=== PATIENT | female | born 1945 | race Caucasian/White ===

== ENCOUNTER 2016-05-09 07:31 | Outpatient (RCR) | payer OTHER ==
[~2016-05-09 07:31] MED LIST: /INSULEV SC; /MOM400 PO; /MUPINAS; /WARF5TA PO; ACET-654 PO; ACET500C PO; ACTO30TA PO; ACTO30TA6 PO; ALDA25TA2 PO; AMLO2.5T OR; AMLO5TAB2 PO; ASPI325T PO; ASPI81TA45; ASPI81TA83 OR; CALC1TAB21 PO; CALC25TA PO; CALCCHW12; CALCCHW12 OR; CEFT1INJ65 IV; COLA100C PO; COLA50CA3 PO; COMBAER6 INH; COMBVENT; COMBVENT INH; CORE25TA PO; Clindamycin PO; DOC-Q-LACE PO; DOCU100C PO; DORZ2SOL OU; DORZ2SOL17 OU; ELIQ2.5T PO; EYE DROP OU; FAMC250T3 PO; FURO40TA2 OR; FURO40TA2 PO; HCTZ/LISINOPRIL PO; HYOS125TA PO; IBAN150T5 PO; INSUDET SC; INSULANT; KETOROLAC 0.4% OD; KLOR10TA OR; LASI40TA; LASI40TA PO; LEVO250T24 PO; LEVO500T PO; LISI-542 PO; LISI10TA4; LISI10TA4 PO; LISI2.5T PO; LOPR100T; LOPR100T OR; MAPA325T2 PO; METO100T PO; METO50TA2 PO; NICO7DIS4; NOVOLOG INSULIN SC; NYST10PW TOP; OMEP20TA7 PO; OMEP40CA2 PO; ONDA4TAB6 PO; PERC5TAB PO; PERCOCET PO; PRED10TA PO; PRED1SUS OD; PRED50TA PO; PREDOPD OD; PRIL20CA; PROL0.072 OU; RANI150C PO; RANI150T PO; SIMV10TA2; SIMV10TA2 OR; SIMV20TA2 PO; SPIR25TA2 PO; TOBR3OPD OD; TRAV04OPD OS; TRAV04OPD OU; TRAVATAN; TRAVATAN OU; TYLE325T5 PO; TYLE500T78 PO; TYLENOL; TYLENOL EXTRA STR OR; ULTR50TA PO; VICO5TAB PO; VITA100066 PO; VITA2000 PO; VITAMIN D PO; VITAMIN D50000 UNT; VITAMIN D50000 UNT OR; XARE20TA PO; ZITH500T PO; ZYLO300T PO; [UNRECOGNIZED DRUG - CODE] PO; [UNRECOGNIZED DRUG - CODE] TOP; [UNRECOGNIZED DRUG - OTHER] PO; alphagan OD
== END 2016-05-10 ==
LOC: M PT 07:31
PROVIDERS: ATTEND Surgery
DX: Z51.89 Encounter for other specified aftercare (principal); I89.0 Lymphedema, not elsewhere classified

== ENCOUNTER 2016-05-16 12:59 | Inpatient (IN) | payer MEDICARE, OTHER ==
[~2016-05-16] VITALS: Ht 160 cm; Wt 133.0 kg
[~2016-05-16 12:59] MED LIST changes: -COLA100C PO; +COLA100C3 PO
[2016-05-16] MEDS ORDERED: IPRATROPIUM 0.5MG/ALBUTEROL 2.5MG INH SOL UD 3ML (DUONEB)(J7620) As Ordered ONE (14:10)
[2016-05-16 14:26] LABS: ABG BASE EXCESS 0.3 (-2.0-2.0); ABG DEVICE NASAL CANN; ABG HCO3 30.9 MEQ/L (22.0-26.0); ABG PARTIAL PRESSURE O2 137.9 mmHg (75.0-100.0); ABG STANDARD HCO3 24.8 MEQ/L (22.0-26.0); ABG TOTAL CO2 33.6 MEQ/L (23.0-31.0)
[2016-05-16 14:29] LABS: BASO % 0.2 % (0.0-1.0); EOS # 0.1 K/mm3 (0.0-0.50); EOS % 0.9 % (0.0-3.0); LARGE UNSTAINED CELL # 0.1 K/mm3 (0.0-0.4); LARGE UNSTAINED CELL % 1.3 % (0.0-4.0); LYMPH # 1.8 K/mm3 (1.5-4.5); LYMPH % 22.2 % (24.0-44.0); MEAN CORPUSCULAR HEMOGLOBIN 33.1 pg (27.0-33.0); MEAN CORPUSCULAR HGB CONC 30.2 g/dl (32.0-36.5); MEAN CORPUSCULAR VOLUME 109.6 fl (80.0-96.0); MONO # 0.4 K/mm3 (0.0-0.8); MONO % 4.6 % (0.0-5.0); NEUTROPHILS # 5.8 K/mm3 (1.8-7.7); NEUTROPHILS % 70.9 % (36.0-66.0); PLATELET COUNT, AUTOMATED 212 k/mm3 (150-450); RED CELL DISTRIBUTION WIDTH 15.7 % (11.5-14.5); WHITE BLOOD COUNT 8.2 K/mm3 (4.0-10.0)
[2016-05-16 14:33] LABS: ABG PARTIAL PRESSURE CO2 86.2 mmHg (35.0-45.0); ABG pH (ARTERIAL) 7.173 UNITS (7.350-7.450)
[2016-05-16 14:34] LABS: ANION GAP 5 MEQ/L (8-16); BLOOD UREA NITROGEN 23 MG/DL (7-18); CALCIUM LEVEL 8.7 MG/DL (8.8-10.2); CARBON DIOXIDE LEVEL 33 MEQ/L (21-32); CHLORIDE LEVEL 110 MEQ/L (98-107); CREATININE FOR GFR 0.97 MG/DL (0.55-1.02); GLOMERULAR FILTRATION RATE > 60.0 (>39); GLUCOSE, FASTING 180 MG/DL (83-110); POTASSIUM SERUM 4.4 MEQ/L (3.5-5.1); SODIUM LEVEL 148 MEQ/L (136-145)
[2016-05-16 14:44] LABS: ADD MORPHOLOGY? YES
[2016-05-16] MEDS ORDERED: ISOVUE-370 76% 100ML VIAL (Q9967) As Ordered ONE (14:47)
[2016-05-16 14:57] LABS: POLYCHROMASIA 1+
[2016-05-16 14:58] LABS: ANISOCYTOSIS 2+
--- NOTE | 2016-05-16 15:06 | REP ---
AP PORTABLE CHEST: 05/16/2016. Comparison: 11/03/2015, 06/30/2015, 04/30/2015 Clinical history: Dyspnea. Findings. Cardiomegaly with left atrial and ventricular enlargement. There is vascular redistribution with alveolar and interstitial pulmonary edema. Effusions are suspected bilaterally. There is basilar atelectasis and/or infiltrate, left greater than right. Calcified tortuous aortic arch without change. Airway midline. Bones with degenerative changes in the shoulders and spine. Impression: 1. Cardiomegaly with vascular redistribution, interstitial and alveolar edema and bilateral effusions suspected, left greater than right. Signed by Get Buckner MD 05/16/2016 04:28 P
[2016-05-16] MEDS ORDERED: FUROSEMIDE 40 MG/4 ML VIAL (J1940) As Ordered ONE (15:21)
--- NOTE | 2016-05-16 15:28 | REP ---
Duplex extremity venous ultrasound: Bilateral lower extremity. History: Question DVT. Findings: Exam quality was inhibited by patient body habitus and soft tissue edema as well as bandages. As a result the right distal femoral vein could not be seen. The deep veins are otherwise anechoic and fully compressible from the groin to the popliteal fossa in the right and left lower extremity. Color flow imaging is homogeneous. Spectral Doppler interrogation demonstrates intact respiratory variation in flow and normal manual augmentation of flow. There is no evidence of deep vein thrombosis. Impression: Some limitation of image quality; distal right femoral vein could not be seen due to edema, otherwise negative bilateral lower extremity duplex venous ultrasound. No evidence of deep vein thrombosis. Signed by Devin Caruso MD 05/16/2016 04:51 P
--- NOTE | 2016-05-16 15:51 | REP ---
CT pulmonary angiogram: With IV contrast. History: Shortness of breath. Comparison studies: Today's chest x-ray. Comparison chest CT study November 04, 2014 Contrast dose: 75 cc's of Isovue [address] technique: Helical scanning is acquired and overlapping 1.5 mm and contiguous 3 mm axial images are reformatted. In addition, a 3-D work station is deployed to generate thick slab maximum intensity projection images in sagittal and coronal imaging projections. CT pulmonary angiographic findings: There is good opacification of the pulmonary arterial tree and there is no CT evidence of pulmonary embolism. There are small bilateral pleural effusions. There is moderate cardiomegaly with four-chamber dilation. The left atrium measures 5.9 cm in AP dimension. The thoracic aorta shows atherosclerotic calcification, but no evidence of dissection or aneurysm. Maximum intensity projection images show no evidence of filling defect. There is compressive atelectasis in the lower lobes bilaterally associated with the pleural effusions. There are scattered normal sized mediastinal lymph nodes. Fissural thickening is seen. Some vascular congestion is noted. There is evidence of a ventral hernia in the upper abdomen seen on the bottom most slices in the field of view. This appears to be transmitting nondilated bowel loops. There are clips in the gallbladder fossa. Impression: 1. CHF pattern with bilateral pleural effusions, pulmonary vascular congestion and cardiomegaly. 2. No CT evidence of pulmonary embolism. 3. Epigastric ventral hernia again noted. Stable mediastinal lymph nodes seen. Signed by Devin Caruso MD 05/16/2016 04:51 P
[2016-05-16 16:40] LABS: ABG BASE EXCESS -0.1 (-2.0-2.0); ABG DEVICE NASAL CANN; ABG HCO3 27.3 MEQ/L (22.0-26.0); ABG PARTIAL PRESSURE CO2 58.5 mmHg (35.0-45.0); ABG PARTIAL PRESSURE O2 108.9 mmHg (75.0-100.0); ABG STANDARD HCO3 24.4 MEQ/L (22.0-26.0); ABG TOTAL CO2 29.1 MEQ/L (23.0-31.0); ABG pH (ARTERIAL) 7.287 UNITS (7.350-7.450)
[2016-05-16] MEDS ORDERED: GLUCOSE 4 GM CHEW TABLET PO PRN (16:45)
[2016-05-16] MEDS ORDERED: GLUCAGON FOR INJ 1 MG VIAL (J1610) SC PRN (16:45)
--- NOTE | 2016-05-16 16:54 | HPEPDOC ---
General Date of Admission 05/16/16 453PM Chief Complaint The patient is a 70-year-old female Presented to the ER with complaints of shortness of breath over the last 3 days. History of Present Illness Patient is a 70 year old female with a PMHx of CHF, COPD on Home O2 ( 2 liters), HTN, IDDM2, DLP, PE (5 months ago, on Xarelto), Lymphoma, Hx of lymphedema and GERD who presented to the ER from rehab center for shortness of breath. At the rehab center for her lower extremity edema and chronic lymphedema management they have noticed that she was more short of breath. As per the patient, she has been short of breath for 3 days. She denies any cough or fever. She does note chills. She reports orthopnea, and uses a hospital bed. She personally has not noticed any change in her lower extremities. Denies any PND. She reports compliance with medications. She denies chest pain or palpitations. She does report an increase in weight of 20 lbs in 2 months. She denies nausea, vomiting, abdominal pain, constipation, diarrhea or dysuria. Home Medications Scheduled Amlodipine Besylate (Amlodipine Besylate) 5 Mg Tab 5 MG PO DAILY Docusate Sodium (Docusate Sodium) 100 Mg Cap 100 MG PO BID (Reported) Famciclovir (Famciclovir) 250 Mg Tab 250 MG PO BID (Reported) MON, MON, FRI Furosemide (Furosemide) 40 Mg Tab 60 MG PO DAILY Ibandronate Sodium (Ibandronate Sodium) 150 Mg Tab 150 MG PO MTHLY (Reported) THE OF EVERY MONTH Insulin Detemir (Levemir) 1 Units/0.01 Ml Susp 72 UNITS SC QHS (Reported) Levofloxacin Hemihydrate (Levofloxacin) 250 Mg Tab 250 MG PO DAILY Metoprolol Tartrate (Metoprolol Tartrate) 50 Mg Tab 50 MG PO BID (Reported) Ranitidine HCl (Ranitidine HCl) 150 Mg Tab 150 MG PO DAILY (Reported) Rivaroxaban (Xarelto) 20 Mg Tab 20 MG PO DAILY (Reported) Simvastatin (Simvastatin) 20 Mg Tab 20 MG PO QHS (Reported) Spironolactone (Spironolactone) 25 Mg Tab 50 MG PO DAILY Travoprost (Travatan Z) 50 Drop/2.5 Ml Soln 1 DROP OU QHS (Reported) Scheduled PRN Acetaminophen (Mapap) 325 Mg Tab 650 MG PO Q6HP PRN PRN PAIN / FEVER Over the counter Albuterol/Ipratropium (Combivent Respimat 20-100 Mcg/Act) 1 Aer Aer 4 PUFF INH QID PRN PRN SHORTNESS OF BREATH (Reported) Nystatin (Nystop Powder) 1 Dose/15 Gm Powd 1 DOSE TOP BIDP PRN PRN RASH Please apply to breast and abdominal folds as needed Allergies Coded Allergies: Heavy Metals (Verified Allergy, Severe, ANAPHYLAXIS, 02/05/14) Latex (Verified Allergy, Intermediate, RASH AND ITCHING, 07/10/12) Sulfa Drugs (Verified Allergy, Intermediate, RASH AND ITCHING, 07/10/12) Codeine (Verified Allergy, Unknown, 07/10/12) Ramipril (Verified Allergy, Unknown, 08/21/12) TAPE (Verified Allergy, Unknown, ADHESIVE - RASH, 02/05/14) Oxycodone (Verified Adverse Reaction, Intermediate, GI UPSET, 02/05/14) Past Medical History Medical History CHF, COPD on Home O2 (2 liters), HTN, IDDM2, DLP, PE (5 months ago, on Xarelto) , Lymphoma, Hx of lymphedema and GERD Surgical History Splenectomy 2006 Cholecystectomy 2002 Adenoidectomy and Tonsillectomy Right knee repair of meniscus injury Family History Family History - Non-contributory Social History Social History - Denies the use of alcohol or illicit drugs; Smoker of 56 years, quit 3 years ago, smoked at 1 ppd - Denies recent travel or sick contacts - Lives alone - 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; 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[employer] [employer] Review of Symptoms Other systems Constitutional: Positive weight gain, No change in appetite, or recent trauma Eyes: No visual changes or eye pain Ears, Nose, Throat: Denies nose bleeds, or difficulty swallowing Cardiovascular: Denies chest pain, sweating, or orthopnea Respiratory: No cough, No wheezing, Positive shortness of breath GI: David nausea, vomiting, abdominal pain, diarrhea or constipation : Denies pain with urination or frequency Musculoskeletal: Denies joint pain, Positive lower extremity edema Neuro / Psych: Denies muscle weakness or sensory loss Skin: No skin rashes noted All other review of systems negative; otherwise stated in history of present illness Vital Signs - Vitals: BP 141/62, HR 65, RR 30, Sat 98%BIPAP, Temp 97.7F - General: Lying in bed, Dyspnic, On BIPAP, AAOx3 - HEENT: NC, AT, PERRLA, EOMI - CVS: RRR, +S1S2, +Systolic murmur - Lungs: Fair air entry bilaterally, Positive crackles bilaterally - Abdomen: Soft, Non-distended, Non-tender, + Bowel sounds x 4 - Extremities: + PPx4, No calf tenderness, Chronic lower extremity edema is in dressing bilaterally - Neuro: No focal motor or sensory deficit - Skin: No visible rashes Laboratory Data Labs 24H Laboratory Tests 2 05/16/16 13:45: Anion Gap 5L, Anisocytosis 2+, B-Type Natriuretic Peptide 1280H, Basophilic Stippling 1+, White Blood Count 8.2, Red Blood Count 3.46L, Hemoglobin 11.5L, Hematocrit 38.0, Mean Corpuscular Volume 109.6H, Mean Corpuscular Hemoglobin 33.1H, Mean Corpuscular Hemoglobin Concent 30.2L, Red Cell Distribution Width 15.7H, Platelet Count 212, Neutrophils (%) (Auto) 70.9H, Lymphocytes (%) (Auto) 22.2L, Monocytes (%) (Auto) 4.6, Eosinophils (%) (Auto) 0.9, Basophils (%) (Auto ) 0.2, Neutrophils # (Auto) 5.8, Lymphocytes # (Auto) 1.8, Monocytes # (Auto) 0.4, Eosinophils # (Auto) 0.1, Basophils # (Auto) 0.0, Blood Urea Nitrogen 23H, Creatinine 0.97, Sodium Level 148H, Potassium Level 4.4, Chloride Level 110H, Carbon Dioxide Level 33H, Calcium Level 8.7L, Total Creatine Kinase 45, Creatine Kinase MB 1.0, Creatine Kinase MB Relative Index 2.22, Glomerular Filtration Rate > 60.0, Large Unclassified Cells # 0.1, Large Unclassified Cells % 1.3, Macrocytosis 3+, Platelet Estimate NORMAL, Polychromasia 1+, Troponin I < 0.02 05/16/16 13:46: D-Dimer, Quantitative 1180.1H, Lactic Acid (Sepsis) 1.0 05/16/16 14:15: Arterial Blood pH 7.173*L, Arterial Blood Partial Pressure CO2 86.2*H, Arterial Blood Partial Pressure O2 137.9H, Arterial Blood Total CO2 33.6H, Arterial Blood HCO3 30.9H, Arterial Blood Base Excess 0.3, Arterial Blood Oxygen Saturation 98.7, Blood Gas Bicarbonate Standard 24.8, Oxygen Delivery Device NASAL STEPHEN 05/16/16 16:16: Arterial Blood pH 7.287L, Arterial Blood Partial Pressure CO2 58.5H, Arterial Blood Partial Pressure O2 108.9H, Arterial Blood Total CO2 29.1, Arterial Blood HCO3 27.3H, Arterial Blood Base Excess -0.1, Arterial Blood Oxygen Saturation 98.2, Blood Gas Bicarbonate Standard 24.4, Oxygen Delivery Device NASAL STEPHEN CBC/BMP Laboratory Tests 05/16/16 13:45 Calcium Level 8.7 L, Total Creatine Kinase 45, Red Blood Count 3.46 L, Mean Corpuscular Volume 109.6 H, Mean Corpuscular Hemoglobin 33.1 H, Mean Corpuscular Hemoglobin Concent 30.2 L, Red Cell Distribution Width 15.7 H, Neutrophils (%) (Auto) 70.9 H, Lymphocytes (%) (Auto) 22.2 L, Monocytes (%) ( Auto) 4.6, Eosinophils (%) (Auto) 0.9, Basophils (%) (Auto) 0.2, Neutrophils # ( Auto) 5.8, Lymphocytes # (Auto) 1.8, Monocytes # (Auto) 0.4, Eosinophils # (Auto ) 0.1, Basophils # (Auto) 0.0 Microbiology Microbiology 05/16/16 Blood Culture, Received Pending 05/16/16 Blood Culture, Received Pending 05/16/16 Influenza Virus Type A Antigen - Final, Complete 05/16/16 Influenza Virus Type B Antigen - Final, Complete Plan / VTE VTE Prophylaxis Ordered?: Yes Plan / Urinary Catheter Reason for insertion/continuin: Critical Pt monitoring Plan Plan Acute on Chronic Hypoxic and Acute Hypercapnic respiratory failure likely 2/2 Acute CHF exacerbation with preserved EF, likely diastolic - Presented with shortness of breath for 3 days, no cough, no fever - Physical reveals + JVD, LE edema and crackles at bilateral lung bases - CXR 05/16: alveolar and interstitial edema - CTA 05/16: CHF pattern with b/l pleural effusions, vascular congestion and cardiomegaly, no PE - US LE negative for DVT - D-dimer elevated - BNP elevated - Troponin negative will trend - Will keep on strict ins/outs, daily weights, head of bed elevation - c/w BIPAP support at this time and will transfer to ICU - s/p Furosemide 40mg IV in ER, will c/w Furosemide 40 IV Q12H to maintain negative fluid balance - Consult with Dr. Spann (Pulmonary ) appreciate their input Macrocytic anemia - Hg appears to be at baseline - Will continue to monitor for now COPD on Home O2 (2 liters) - No evidence of exacerbation at this time - Will c/w home inhaled therapy HTN - Will c/w home medications with holding parameters IDDM2 - will c/w ISS as an inpatient - Reports to be on Lantus 72 units QHS; will start Levemir at 50 units QHS DLP - c/w simvastatin PE - 5 months ago - c/w Xarelto Lymphoma Hx of lymphedema - will c/w wound care GERD - c/w PPI DVT prophylaxis - On full anticoagulation with Zhanerelto TERRA SAMAYOA MD May 16, 2016 16:54
[2016-05-16] MEDS: HumaLOG INSULIN (NovoLOG) PER UNIT SC SCH ×2 (17:30→21:00)
[2016-05-16] MEDS ORDERED: FURO40TA2 PO (17:37)
[2016-05-16] MEDS ORDERED: FURO1TAB15 PO (17:37)
[2016-05-16] MEDS ORDERED: AMLO5TAB2 PO (17:37)
[2016-05-16] MEDS ORDERED: SPIR50TA2 PO (17:38)
[2016-05-16] MEDS ORDERED: INSUH10VL SC (17:38)
--- NOTE | 2016-05-16 18:36 | CR ---
CRITICAL CARE NOTE DATE OF PULMONARY CONSULTATION: 05/16/2016 ATTENDING PHYSICIAN: Dr. Sheree Salinas CONSULTING PHYSICIAN: Dr. Tim Spann. HISTORY OF PRESENT ILLNESS: Ms Lopez is a 70-year-old female with past medical history significant for congestive heart failure, chronic obstructive pulmonary disease (COPD), chronic hypoxic respiratory failure on 2 liters, hypertension, insulin-dependent diabetes, hyperlipidemia, history of lymphoma, chronic lymphedema, gastroesophageal reflux disease (GERD), history of pulmonary embolism and questionable obstructive sleep apnea who presented to the emergency department with 3 days of shortness of breath. She also admitted to orthopnea, paroxysmal nocturnal dyspnea, weight gain and was found to be in acute congestive heart failure (CHF) exacerbation. LABORATORY ASSESSMENT: Revealed a WBC 8.2, hemoglobin 11.5, hematocrit 38.0, platelet count 212. Sodium 148, potassium 4.4, chloride 110, carbon dioxide 33, anion gap 5, BUN 23, creatinine 0.97, GFR greater than 60, fasting glucose 180, lactic acid 1.0, calcium 8.7, total creatinine kinase 45, CK-MB 1.7, troponin less than 0.02, BNP elevated at 1280. Arterial blood gas initially showed a pH of 7.173, pCO2 86.2, pO2 137.9 with oxygen saturation 98.7 on nasal cannula. Repeat blood gas after initiation of BiPAP reveals a pH of 7.287, pCO2 58.5 pO2 108.9, oxygen saturation 98.2. D- dimer elevated at 1180. Current BiPAP settings: IPAP 18. EPAP 8. Tidal volume between 480 and 580. PHYSICAL EXAMINATION: Vital signs: temperature 97.7, pulse 65, blood pressure 141/62, respiratory rate 20, pulse oximetry 98% on BiPAP with FIO2 of 40%. General: The patient is alert and awake. In no acute distress. She is able to speak in sentences without use of accessory muscles. HEENT: Normocephalic, atraumatic. Extraocular muscles are intact. Moist mucosa. Neck: Supple. Increased jugular venous pulsations. Heart: Regular rate, irregular rhythm. Lungs: Positive for bibasilar crackles. Fair air movement bilaterally. Abdomen: Obese. Soft, nontender. Bowel sounds are present. Extremities: Positive for bilateral edema with chronic lymphedema. She has dressings in place. Skin: Warm and dry. No rashes noted. Neurologic: No focal deficits. Cranial nerves II-XII are grossly intact. Motor sensation intact. IMAGING STUDIES: Chest x-ray reveals cardiomegaly with vascular congestion, interstitial alveolar edema and bilateral effusions, left greater than right. Vascular ultrasound showed no evidence of deep venous thrombosis (DVT). CT angiogram revealed CHF pattern with bilateral pleural effusions, pulmonary vascular congestion and cardiomegaly. No CT evidence of pulmonary embolism. ASSESSMENT/PLAN: 1. Acute hypoxic and hypercarbic respiratory failure, requiring noninvasive mechanical ventilation. The patient continues to be on BiPAP with improvement in her blood gases. This acute failure is secondary to pulmonary edema and CHF exacerbation. We will continue with noninvasive mechanical ventilation. We will obtain an ABG in the morning. Will also obtain a repeat chest x-ray in the morning. She has been initiated on IV Lasix. GI prophylaxis: Protonix DVT prophylaxis: TEDs/sequentials Critical care time spent: 1 hour, not including procedures. My preceptor for this patient encounter was Dr. Tim Spann. The preceptor was physically present during the encounter and was fully available. As needed, all aspects of the patient interview, examination, medical decision making process, and medical care plan development were reviewed and approved by the preceptor. The preceptor is aware and concurs with the plan as stated in the body of this note and will attest to such by his/her cosignature. Dr. Spann. I was present during the patients examination and personally performed barone components of the history and physical examination. The medical decision making was done n collaboration with Dr. Brody who completed the above documentation. JANNET
--- NOTE | 2016-05-16 20:12 | ECGEPIP ---
Stationary ECG Study [place] - ED Test Date: 2016-05-16 Pat Name: ANTHONY KINGSLEY Department: Room: - Gender: F In File Operator: aris : 1945 Requested By: YISSEL Lares Order Number: [id number] Reading MD: Mary Kay Oviedo Measurements Intervals [place] Rate: 87 P: 59 W[place]: 167 QRS: -13 QRSD: 102 T: 46 QT: 386 QTc: 465 Interpretive Statements SINUS RHYTHM WITH OCCASIONAL VENTRICULAR PREMATURE COMPLEXES WITH FREQUENT SUPRAVENTRICULAR PREMATURE COMPLEXES IN A BIGEMINAL BASELINE ARTIFACT LIMITS INTERPRETATION MODERATE ST DEPRESSION Electronically Signed On 05-16-2016 20:11:50 EST by Mary Kay Oviedo
[2016-05-16] MEDS ORDERED: METOPROLOL TART 50 MG TAB As Ordered ONE (20:51)
[2016-05-16] MEDS ORDERED: DOCUSATE SODIUM 100 MG CAP As Ordered ONE (20:52)
[2016-05-16] MEDS: LEVEMIR (INSULIN DETEMIR) 1 UNITS/0.01ML SC SCH (21:00)
[2016-05-16] MEDS: SIMVASTATIN 20 MG TAB PO SCH (21:00)
[2016-05-16] MEDS: LATANOPROST 0.005% OPHTH SOLN 2.5 ML OS SCH (21:00)
[2016-05-16] MEDS: METOPROLOL TART 50 MG TAB PO SCH (21:00)
[2016-05-16] MEDS: DOCUSATE SODIUM 100 MG CAP PO SCH (21:00)
[2016-05-16 21:11] LABS: ABG BASE EXCESS 4.5 (-2.0-2.0); ABG HCO3 30.7 MEQ/L (22.0-26.0); ABG PARTIAL PRESSURE CO2 53.9 mmHg (35.0-45.0); ABG PARTIAL PRESSURE O2 61.3 mmHg (75.0-100.0); ABG STANDARD HCO3 28.4 MEQ/L (22.0-26.0); ABG TOTAL CO2 32.4 MEQ/L (23.0-31.0); ABG pH (ARTERIAL) 7.374 UNITS (7.350-7.450)
[2016-05-17] VITALS (11 sets, daily range): BP systolic 105–180; BP diastolic 49–82; O2SAT 98
[2016-05-17] MEDS ORDERED: ACETAMINOPHEN 325 MG TAB As Ordered ONE (02:00)
[2016-05-17 04:29] LABS: MEAN CORPUSCULAR HEMOGLOBIN 33.9 pg (27.0-33.0); MEAN CORPUSCULAR HGB CONC 31.3 g/dl (32.0-36.5); MEAN CORPUSCULAR VOLUME 108.2 fl (80.0-96.0); PLATELET COUNT, AUTOMATED 167 k/mm3 (150-450); RED CELL DISTRIBUTION WIDTH 15.7 % (11.5-14.5); WHITE BLOOD COUNT 4.2 K/mm3 (4.0-10.0)
[2016-05-17 04:34] LABS: INR 2.47
[2016-05-17 04:51] LABS: ALBUMIN 2.2 GM/DL (3.2-5.2); ALBUMIN/GLOBULIN RATIO 0.76 (1.00-1.93); BILIRUBIN,TOTAL 0.9 MG/DL (0.2-1.0); CALCIUM LEVEL 7.9 MG/DL (8.8-10.2); CREATININE FOR GFR 1.11 MG/DL (0.55-1.02); GLOMERULAR FILTRATION RATE 51.4 (>39); MAGNESIUM LEVEL 1.7 MG/DL (1.8-2.4); POTASSIUM SERUM 4.5 MEQ/L (3.5-5.1); TOTAL PROTEIN 5.1 GM/DL (6.4-8.2)
[2016-05-17 05:53] LABS: BANDS 3 % (< 11); NUCLEATED RED BLOOD CELL 1 % (0-0)
[2016-05-17 05:54] LABS: ANISOCYTOSIS 1+
--- NOTE | 2016-05-17 07:44 | EDDOCDS ---
Nurse's Notes [facility] Name: Anthony Lopez Age: 70 yrs Sex: Female : 1945 Arrival Date: 05/16/2016 Time: 12:59 Bed Admit Hold Private MD: Diagnosis: Acute respiratory failure;Acute systolic (congestive) heart failure Presentation: 05/16 13:05 Presenting complaint: EMS states: patient went to physical therapy where they wrapped hs1 her legs. Patient has become extremely short of breath and patient having difficulty speaking sentences. Patient breathing approx 40 times per minute at present. Patient states started feeling like this 1 hour ago. Adult Sepsis Screening: The patient does not have new or worsening altered mentation. Patient has a respiratory rate of greater than or equal to 22 (1 point). Systolic blood pressure is greater than 100. Patient has a qSOFA score of 1- Negative Sepsis Screen. Suicide/Homicide risk assessment- the patient denies having any suicidal and/or homicidal ideations and does not present with any other emotional, behavioral or mental health complaints. Status: Patient is not a assurance services manager health care or dependent. Transition of care: patient was not received from another setting of care. 13:05 Acuity: ANN Level 2 hs1 13:05 Method Of Arrival: Ambulance hs1 Triage Assessment: 13:19 General: Appears uncomfortable, Behavior is appropriate for age, cooperative. Pain: hs1 Denies pain. Neurological: Level of Consciousness is awake, alert, obeys commands. Cardiovascular: Capillary refill is sluggish Rhythm is irregular. Respiratory: Onset: The symptoms/episode began/occurred today, Airway is patent Respiratory effort is labored, Respiratory pattern is. Respiratory: GI: Abdomen is obese. Derm: Skin is pale. Historical: - Allergies: codeine; Latex; metal; Percocet; Ramipril; SULFA (SULFONAMIDES) (Hives); Tape; - Home Meds: 1. portable oxygen 2. Norvasc 5 mg Oral tab 1 tab once daily 3. furosemide 40 mg Oral tab 2 tabs once daily 2 tabs every morning, one tab in afternoon 4. spironolactone 25 mg Oral tab 1 tab once daily 5. Travatan Z 0.004 % ophthalmic drop 1 drop once daily 6. Calcium + Vitamin D 600 mg calcium- 200 unit Oral tab daily 7. 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 - Exposure Risk Screening:: None identified. Screenin:00 Infection Control. deg 05/17 07:23 Screening information is obtained from the patient. Fall risk: At risk due to gait nr1 disturbance. Assistance ADL's: requires no assistance with activities of daily living. Abuse/DV Screen: The patient / caregiver reports he/she is: not in a situation that causes fear, pain or injury. Nutritional screening: No deficits noted. Advance Directives: There is no active DNR order. home support is adequate. Assessment: 05/16 14:16 General: Appears uncomfortable. Pain: Denies pain. Cardiovascular: Capillary refill < 3 rs3 seconds Heart tones S1 S2 present Chest pain is denied. Respiratory: Airway is patent Respiratory effort is even, labored, Respiratory pattern is regular, symmetrical, Breath sounds are coarse bilaterally. Derm: Skin is pink, warm & dry. 15:38 General: Appears uncomfortable, patient is on non-re breather. try to wean her off to rs3 nasal canula. sat 80s. attending provider aware. BiPAP orders in. Respiratory in with patient. patient returned from CT angio/ultrasound tolerated well. lung sounds coarse rales throughout. Lasix 40 mg IVP given. Duckworth inserted drained clear urine. . 16:40 General: Appears in no apparent distress, patient tolerating on BiPAP settings. rs3 tolerating well. No acute distress. breathes easy. denies of pain/distress. Duckworth drains cloudy yellow urine. 17:54 General: Appears in no apparent distress, Behavior is cooperative, Dr. Spann and rs3 resident with patient. patient resting comfortable tolerating BiPAP settings. vital signs stable. Output 200cc/duckworth. 18:45 General: Appears in no apparent distress, Behavior is appropriate for age, cooperative, rs3 denies of pain/distress. tolerating Bipap. extra blankets provided. reports of being cold. vital signs stable. 19:04 General: Verbal report given by Agnieszka Gonzalez RN. Assumed care of patient at this time.. [facility] 19:15 General: Appears in no apparent distress, comfortable, well nourished, well groomed, kas2 Behavior is appropriate for age, cooperative. Pain: Denies pain. Neurological: Level of Consciousness is awake, alert, Oriented to person, place, time. Cardiovascular: Capillary refill < 3 seconds Heart tones S1 S2 present Rhythm is sinus rhythm No ectopy. Chest pain is denied. Respiratory: Airway is patent Respiratory effort is even, unlabored, Respiratory pattern is regular, symmetrical, Breath sounds are coarse bilaterally. Derm: Skin is intact, Skin is dry, Skin is pink, warm & dry. Skin temperature is warm. Musculoskeletal: No deficits noted. Injury Description: No known injury. 20:57 General: Appears in no apparent distress, comfortable, Behavior is appropriate for age, kas2 cooperative. Pain: Denies pain. Neurological: Level of Consciousness is awake, alert, Oriented to person, place, time. Cardiovascular: Rhythm is sinus rhythm No ectopy. Chest pain is denied. Respiratory: Airway is patent Respiratory effort is even, unlabored, Respiratory pattern is regular, symmetrical. Derm: Skin is intact, Skin is dry, Skin is pink, warm & dry. Skin temperature is warm. 20:58 General: Patient given her 2100 meds. No apparent distress. Appears comfortable. Call [facility] ahuja within reach. Will continue to monitor.. 21:54 General: Appears in no apparent distress, comfortable, Behavior is appropriate for age, kas2 cooperative. Pain: Denies pain. Neurological: Level of Consciousness is awake, alert, Oriented to person, place, time. Cardiovascular: Rhythm is sinus rhythm No ectopy. Respiratory: Airway is patent Respiratory effort is even, unlabored, Respiratory pattern is regular, symmetrical. Derm: Skin is intact, Skin is dry, Skin is pink, warm & dry. Skin temperature is warm. 23:35 General: Appears in no apparent distress, comfortable, Behavior is appropriate for age, kas2 cooperative. Pain: Denies pain. Neurological: Level of Consciousness is awake, alert, Oriented to person, place, time. Cardiovascular: Rhythm is sinus rhythm No ectopy. Respiratory: Airway is patent Respiratory effort is even, unlabored, Respiratory pattern is regular, symmetrical. Derm: Skin is intact, Skin is dry, Skin is pink, warm & dry. Skin temperature is warm. 05/17 01:43 General: Appears in no apparent distress, comfortable, Behavior is appropriate for age, kas2 cooperative. Pain: Denies pain. Neurological: Level of Consciousness is awake, alert, Oriented to person, place, time. Cardiovascular: Rhythm is sinus rhythm No ectopy. Chest pain is denied. Respiratory: Airway is patent Respiratory effort is even, unlabored, Respiratory pattern is regular, symmetrical, Breath sounds are coarse bilaterally. Derm: Skin is intact, Skin is dry, Skin is pink, warm & dry. Skin temperature is warm. 02:08 General: Patient complaining of pain in her back and legs 09/17. Resettled in bed. Meds kas2 given. Airway patent. Respiratory effort even and unlabored. BIPAP remains on. No apparent distress noted. Call ahuja within reach. Will continue to monitor.. 02:56 General: Appears in no apparent distress, comfortable, to be sleeping. Behavior is kas2 appropriate for age, cooperative. Neurological:. Cardiovascular: Rhythm is sinus rhythm No ectopy. Respiratory: Airway is patent Respiratory effort is even, unlabored, Respiratory pattern is regular, symmetrical. Derm: Skin is intact, Skin is dry, Skin is pink, warm & dry. Skin temperature is warm. 04:41 General: Patient laying in bed sleeping at this time with BIPAP on. Appears kas2 comfortable. No apparent distress noted. Airway patent and respiratory effort even and unlabored. VSS. Call ahuja within reach. Will continue to monitor.. 05:36 General: Appears in no apparent distress, uncomfortable, Behavior is appropriate for kas2 age, cooperative. Pain: Location: coccyx Pain currently is 4 out of 10 on a pain scale. Neurological: Level of Consciousness is awake, alert, Oriented to person, place, time. Cardiovascular: Capillary refill < 3 seconds Heart tones S1 S2 present Rhythm is sinus rhythm No ectopy. Respiratory: Airway is patent Respiratory effort is even, unlabored, Respiratory pattern is regular, symmetrical, Derm: Skin is intact, Skin is dry, Skin is pink, warm & dry. Skin temperature is warm. 06:42 General: Patient repositioned in bed and turned to left side. No apparent distress at kas2 this time. Patient given small sips of water. VSS. BIPAP remains on. Airway patent and respiratory effort even and unlabored. Call ahuja within reach. Will continue to monitor.. 07:22 Respiratory: Airway Respiratory effort is Respiratory pattern is Derm: nr1 Vital Signs: 05/16 13:17 Resp 44; Pulse Ox 69% on R/A; hs1 13:17 BP 177 / 88; Pulse 96; Resp 44; Pulse Ox 99% on 15% Non-rebreather mask; Weight 133.36 hs1 kg; Height 5 ft. 3 in. (160.02 cm); Pain 0/10; 13:39 BP 184 / 81 (auto/); kas2 13:39 Pulse 88 MON; Pulse Ox 100% ; kas2 13:51 BP 199 / 82 (auto/); rs3 13:51 Pulse 89 MON; Pulse Ox 94% ; rs3 13:58 Temp 97.7(O); rs3 14:14 Pulse 83 MON; Pulse Ox 98% ; rs3 14:15 BP 185 / 75 (auto/); rs3 14:15 Pulse 84 MON; Pulse Ox 97% ; rs3 14:30 Pulse 81 MON; Pulse Ox 99% ; kas2 14:45 BP 171 / 71 (auto/); rs3 14:46 Pulse 78 MON; Pulse Ox 99% ; rs3 15:00 BP 189 / 74 (auto/); rs3 15:01 Pulse 77 MON; Pulse Ox 99% ; rs3 15:18 BP 148 / 65 (auto/); rs3 15:20 Pulse 80 MON; Pulse Ox 98% ; rs3 15:30 BP 146 / 61 (auto/); rs3 15:30 Pulse 81 MON; Resp 20; Pulse Ox 99% ; rs3 15:37 Pulse 72 MON; Pulse Ox 97% ; rs3 15:45 BP 141 / 61 (auto/); rs3 16:00 BP 141 / 62 (auto/); rs3 16:00 Pulse 65 MON; Pulse Ox 98% ; rs3 16:15 BP 146 / 66 (auto/); rs3 16:15 Pulse 61 MON; Pulse Ox 99% ; rs3 16:30 BP 152 / 63 (auto/); rs3 16:30 Pulse 67 MON; Pulse Ox 98% ; rs3 16:53 BP 168 / 92 (auto/); kas2 16:53 Pulse 70 MON; Pulse Ox 97% ; kas2 16:57 BP 152 / 65 (auto/); rs3 16:57 Pulse 61 MON; Pulse Ox 97% ; rs3 17:00 BP 159 / 67 (auto/); rs3 17:00 Pulse 71 MON; Pulse Ox 98% ; rs3 17:15 BP 157 / 62 (auto/); rs3 17:15 Pulse 70 MON; Pulse Ox 99% ; rs3 17:30 BP 143 / 63 (auto/); rs3 17:30 Pulse 70 MON; Pulse Ox 98% ; rs3 17:45 BP 147 / 60 (auto/); rs3 17:45 Pulse 72 MON; Pulse Ox 99% ; rs3 18:00 BP 133 / 56 (auto/); rs3 18:00 Pulse 80 MON; Pulse Ox 96% ; rs3 18:30 BP 122 / 78 (auto/); rs3 18:30 Pulse 74 MON; Pulse Ox 96% ; rs3 18:44 Pulse 75 MON; Pulse Ox 96% ; rs3 18:45 BP 134 / 74 (auto/); kas2 18:45 Pulse 76 MON; Pulse Ox 95% ; kas2 19:00 BP 150 / 87 (auto/); kas2 19:00 Pulse 77 MON; Pulse Ox 97% ; kas2 19:15 BP 156 / 60 (auto/); kas2 19:15 Pulse 76 MON; Pulse Ox 97% ; kas2 19:43 BP 163 / 95 (auto/); kas2 19:43 Pulse 77 MON; Pulse Ox 96% ; kas2 19:45 BP 161 / 69 (auto/); kas2 19:45 Pulse 78 MON; Pulse Ox 97% ; kas2 20:00 BP 161 / 65 (auto/); kas2 20:00 Pulse 78 MON; Pulse Ox 96% ; kas2 20:18 BP 129 / 59 (auto/); kas2 20:18 Pulse 78 MON; Pulse Ox 96% ; kas2 20:30 BP 147 / 58 (auto/); kas2 20:30 Pulse 82 MON; Pulse Ox 95% ; kas2 20:45 BP 175 / 68 (auto/); kas2 20:45 Pulse 77 MON; Pulse Ox 96% ; kas2 21:00 Resp 20; Temp 98.0(O); Pain 0/10; kas2 21:06 BP 152 / 57 (auto/); kas2 21:06 Pulse 109 MON; Pulse Ox 90% ; kas2 21:15 BP 158 / 65 (auto/); kas2 21:15 Pulse Ox 91% ; kas2 21:30 BP 165 / 66 (auto/); kas2 21:30 Pulse Ox 91% ; kas2 21:45 BP 167 / 66 (auto/); kas2 21:45 Pulse Ox 91% ; kas2 22:15 BP 98 / 47 (auto/); kas2 22:15 Pulse Ox 90% ; kas2 22:20 BP 176 / 70 (auto/); kas2 22:20 Pulse Ox 90% ; kas2 22:30 BP 189 / 76 (auto/); kas2 22:30 Pulse 77 MON; Pulse Ox 93% ; kas2 22:45 BP 134 / 65 (auto/); kas2 22:45 Pulse 73 MON; Pulse Ox 95% ; kas2 23:00 BP 150 / 72 (auto/); kas2 23:00 Pulse 72 MON; kas2 23:15 BP 171 / 68 (auto/); kas2 23:15 Pulse 74 MON; Pulse Ox 96% ; kas2 23:30 BP 143 / 65 (auto/); kas2 23:30 Pulse 75 MON; Pulse Ox 96% ; kas2 23:36 Resp 18; Temp 97.8(O); kas2 0207 00:00 BP 124 / 88 (auto/); kas2 00:00 Pulse 79 MON; kas2 00:15 BP 154 / 58 (auto/); kas2 00:15 Pulse 78 MON; kas2 00:30 BP 170 / 80 (auto/); kas2 00:30 Pulse 76 MON; Pulse Ox 97% ; kas2 00:45 BP 139 / 53 (auto/); kas2 00:45 Pulse 84 MON; Pulse Ox 96% ; kas2 01:15 BP 147 / 60 (auto/); kas2 01:15 Pulse 78 MON; Pulse Ox 96% ; kas2 01:45 Resp 18; Temp 97.9; kas2 02:07 BP 184 / 75 (auto/); kas2 02:07 Pulse 80 MON; Pulse Ox 97% ; kas2 02:35 BP 162 / 74; Pulse 76; Resp 18; Temp 98.1(O); Pain 0/10; kas2 03:45 BP 134 / 51 (auto/); kas2 03:45 Pulse 78 MON; Pulse Ox 97% ; kas2 04:00 BP 143 / 59 (auto/); kas2 04:00 Pulse 79 MON; Pulse Ox 97% ; kas2 04:30 BP 117 / 54 (auto/); kas2 04:30 Pulse 82 MON; Pulse Ox 98% ; kas2 04:45 BP 119 / 52 (auto/); kas2 04:45 Pulse 82 MON; Pulse Ox 97% ; kas2 05:00 BP 107 / 51 (auto/); kas2 05:00 Pulse 82 MON; Pulse Ox 98% ; kas2 05:15 BP 123 / 53 (auto/); kas2 05:15 Pulse 79 MON; Pulse Ox 95% ; kas2 05:30 BP 112 / 52 (auto/); kas2 05:30 Pulse 73 MON; Pulse Ox 95% ; kas2 05:32 Resp 20; Temp 100.1(TE); kas2 05:45 BP 116 / 53 (auto/); kas2 05:45 Pulse 80 MON; Pulse Ox 95% ; kas2 06:00 BP 121 / 53 (auto/); kas2 06:00 Pulse 77 MON; Pulse Ox 95% ; kas2 06:15 BP 122 / 53 (auto/); kas2 06:15 Pulse 73 MON; Pulse Ox 95% ; kas2 06:26 Temp 98.6; luis e 06:39 BP 121 / 56 (auto/); kas2 06:39 Pulse 80 MON; Pulse Ox 96% ; kas2 06:44 Resp 20; kas2 05/16 13:17 Body Mass Index 52.08 (133.36 kg, 160.02 cm) hs1 Vitals: 05/16 13:07 Log In Time N/A - ambulance arrival. hs1 ED Course: 13:00 Patient visited by Laverne Hobson, Cigarette Tester. deg 13:00 Patient moved to Waiting deg 13:01 Felicia Peng,RN is Primary Nurse. deg 13:01 Patient moved to 6 deg 13:05 Janice Leger,RN is Primary Nurse. deg 13:05 Yesica Moore,JOEL is Primary Nurse. deg 13:05 Patient moved to 3 deg 13:07 Triage Initiated hs1 13:14 Patient visited by Divya Castillo RN. hs1 13:19 Yissel Hodges MD is Attending Physician. br1 13:23 Patient visited by Yissel Hodges MD. br1 13:33 Patient visited by Carl Ford PCA. jlf 13:33 EKG done. (by ED staff). Reviewed by Yissel Hodges MD. jlf 13:48 Inserted saline lock: 18 gauge in left antecubital area and blood collected. The js13 patient tolerated the procedure well. 13:56 D-Dimer Quant Sent. rs3 13:56 Lactic Acid (Pichardo tube on ice) Sent. rs3 13:56 Troponin Sent. rs3 13:57 Cardiac Injury Profile Sent. rs3 13:57 B-Type Natiuretic Peptide Sent. rs3 13:58 Basic Metabolic Profile Sent. rs3 13:58 CBC with Diff Sent. rs3 14:15 Patient visited by Yesica Moore RN. rs3 14:20 -Arterial Blood Gas Sent. kjn 14:26 Patient moved to Ultrasound hgl 15:[address] hgl 15:20 Patient visited by Yissel Hodges MD. br1 15:25 portable chest Returned. EDMS 16:08 Patient visited by Yesica Moore RN. rs3 16:09 Ultrasound Bilateral LE R/O DVT Returned. EDMS 16:09 CT Chest Angio R/O PE Returned. EDMS 16:10 Patient moved to 3 rs3 16:17 Sheree Salinas is Hospitalizing Provider. br1 16:25 -Arterial Blood Gas Sent. rs5 17:14 Patient visited by Yesica Moore RN. rs3 17:15 Duckworth cath inserted 16 Fr. Balloon inflated. To gravity drainage. Urine specimen rs3 collected. 18:44 Patient visited by Yesica Moore RN. rs3 18:44 [facility] Payment Agreement was scanned into [employer] and attached to record. gjb 19:04 Patient visited by Leelee Richards RN. kas2 19:17 Patient visited by Leelee Richards RN. kas2 19:50 Leelee Richards,JOEL is Primary Nurse. kas2 20:30 Patient moved to Admit Hold sls1 20:54 EKG-ADULT Returned. EDMS 20:58 Primary Nurse role handed off by Janice Leger,JOEL luis e 21:01 Patient visited by Leelee Richards RN. kas2 21:21 Patient visited by Leelee Richards RN. kas2 21:56 Patient visited by Leelee Richards RN. kas2 22:19 Patient visited by Leelee Richards RN. kas2 23:37 Patient visited by Leelee Richards RN. kas2 23:56 Primary Nurse role handed off by Felicia Peng RN luis e 23:57 Primary Nurse role handed off by Yesica Moore RN luis e 05/17 01:45 Patient visited by Leelee Richards RN. kas2 02:10 Patient visited by Leelee Richards RN. kas2 02:58 Patient visited by Leelee Richards RN. kas2 04:44 Patient visited by Leelee Richards RN. kas2 05:32 Patient visited by Leelee Richards RN. kas2 05:38 Patient visited by Leelee Richards RN. kas2 06:26 Patient visited by Leelee Richards RN. kas2 06:26 Patient visited by Jojo Kauffman PCA. luis e 06:44 Patient visited by Leelee Richards RN. kas2 06:51 Patient visited by Leelee Richards RN. kas2 06:58 Pilar Severino,JOEL is Primary Nurse. ja5 07:02 Patient visited by Leelee Richards RN. kas2 07:23 The patient / caregiver is instructed regarding the plan of care and ED course. nr1 Administered Medications: 05/16 14:20 Drug: Albuterol-Ipratropium 3 ml [ipratropium-albuterol 0.5 mg-3 mg(2.5 mg base)/3 mL kjn nebulization soln (3 mL)] Route: Inhalation; 15:36 Drug: Furosemide 40 mg [furosemide 10 mg/mL injection solution (4 mL)] Route: IVP; rs3 Site: left antecubital; Point of Care Testing: Blood Glucose: 20:58 Blood Glucose: 201 mg/dL; kas2 Ranges: Output: 17:55 Urine: 200.00ml (Duckworth); Total: 200.00ml. rs3 05/17 04:50 Urine: 900.00ml (Duckworth); Total: 1100.00ml. kas2 06:40 Urine: 150.00ml (Duckworth); Total: 1250.00ml. kas2 RT: 05/16 14:20 ABG's drawn from right radial artery allens test done and positive pressure held for 5 kjn minutes no bleeding noted pressure bandage applied specimen sent pt. tolerated well. Initial Med Neb Given as ordered. Respiratory: Breath sounds are diminished bilaterally. Breath sounds with wheezes bilaterally. 15:47 Ventilation: Ventilator Settings. BIPAP: Inspiratory Pressure: 18, Expiratory Pressure: rs5 8, Backup Rate: 10, FiO2: 50%, Full face fask. 16:25 ABG's drawn from right radial artery allens test done and positive pressure held for 5 rs5 minutes no bleeding noted pressure bandage applied specimen sent pt. tolerated well. Order Results: Lab Order: B-Type Natiuretic Peptide; SPEC'M 05/16/16 13:45 Test: BRAIN NATRIURETIC PEPTIDE; Value: 1280; Range: <100; Abnormal: Above high normal; Units: PG/ML; Status: F Lab Order: Basic Metabolic Profile; SPEC'M 05/16/16 13:45 Test: GLUCOSE, FASTING; Value: 180; Range: 83-110; Abnormal: Above high normal; Units: MG/DL; Status: F Test: BLOOD UREA NITROGEN; Value: 23; Range: 7-18; Abnormal: Above high normal; Units: MG/DL; Status: F Test: CREATININE FOR GFR; Value: 0.97; Range: 0.55-1.02; Units: MG/DL; Status: F Test: GLOMERULAR FILTRATION RATE; Value: > 60.0; Range: >39; Status: F Test: SODIUM LEVEL; Value: 148; Range: 136-145; Abnormal: Above high normal; Units: MEQ/L; Status: F Test: POTASSIUM SERUM; Value: 4.4; Range: 3.5-5.1; Units: MEQ/L; Status: F Test: CHLORIDE LEVEL; Value: 110; Range: 98-107; Abnormal: Above high normal; Units: MEQ/L; Status: F Test: CARBON DIOXIDE LEVEL; Value: 33; Range: 21-32; Abnormal: Above high normal; Units: MEQ/L; Status: F Test: ANION GAP; Value: 5; Range: 8-16; Abnormal: Below low normal; Units: MEQ/L; Status: F Test: CALCIUM LEVEL; Value: 8.7; Range: 8.8-10.2; Abnormal: Below low normal; Units: MG/DL; Status: F Test Note: ; Units are mL/min/1.73 m2 Chronic Kidney Disease Staging per NKF: Stage I & II GFR >=60 Normal to Mildly Decreased Stage III GFR 30-59 Moderately Decreased Stage IV GFR 15-29 Severely Decreased Stage V GFR <15 Very Little GFR Left ESRD GFR <15 on GLOBAL COMPENSATION ANALYST Lab Order: CBC with Diff; CANDICE'M 05/16/16 13:45 Test: WHITE BLOOD COUNT; Value: 8.2; Range: 4.0-10.0; Units: K/mm3; Status: F Test: RED BLOOD COUNT; Value: 3.46; Range: 4.00-5.40; Abnormal: Below low normal; Units: M/mm3; Status: F Test: HEMOGLOBIN; Value: 11.5; Range: 12.0-16.0; Abnormal: Below low normal; Units: g/dl; Status: F Test: HEMATOCRIT; Value: 38.0; Range: 36.0-47.0; Units: %; Status: F Test: MEAN CORPUSCULAR VOLUME; Value: 109.6; Range: 80.0-96.0; Abnormal: Above high normal; Units: fl; Status: F Test: MEAN CORPUSCULAR HEMOGLOBIN; Value: 33.1; Range: 27.0-33.0; Abnormal: Above high normal; Units: pg; Status: F Test: MEAN CORPUSCULAR HGB CONC; Value: 30.2; Range: 32.0-36.5; Abnormal: Below low normal; Units: g/dl; Status: F Test: RED CELL DISTRIBUTION WIDTH; Value: 15.7; Range: 11.5-14.5; Abnormal: Above high normal; Units: %; Status: F Test: PLATELET COUNT, AUTOMATED; Value: 212; Range: 150-450; Units: k/mm3; Status: F Test: NEUTROPHILS %; Value: 70.9; Range: 36.0-66.0; Abnormal: Above high normal; Units: %; Status: F Test: LYMPH %; Value: 22.2; Range: 24.0-44.0; Abnormal: Below low normal; Units: %; Status: F Test: MONO %; Value: 4.6; Range: 0.0-5.0; Units: %; Status: F Test: EOS %; Value: 0.9; Range: 0.0-3.0; Units: %; Status: F Test: BASO %; Value: 0.2; Range: 0.0-1.0; Units: %; Status: F Test: LARGE UNSTAINED CELL %; Value: 1.3; Range: 0.0-4.0; Units: %; Status: F Test: NEUTROPHILS #; Value: 5.8; Range: 1.8-7.7; Units: K/mm3; Status: F Test: LYMPH #; Value: 1.8; Range: 1.5-4.5; Units: K/mm3; Status: F Test: MONO #; Value: 0.4; Range: 0.0-0.8; Units: K/mm3; Status: F Test: EOS #; Value: 0.1; Range: 0.0-0.50; Units: K/mm3; Status: F Test: BASO #; Value: 0.0; Range: 0.0-0.2; Units: K/mm3; Status: F Test: LARGE UNSTAINED CELL #; Value: 0.1; Range: 0.0-0.4; Units: K/mm3; Status: F Lab Order: Cardiac Injury Profile; [facility]05/16[facility]16 13:45 Test: CPK CREATINE PHOSPHOKINASE; Value: 45; Range: 26-192; Units: U/L; Status: F Test: CK-MB VALUE MASS; Value: 1.0; Range: 0.0-3.6; Units: NG/ML; Status: F Test: MB/CK RELATIVE INDEX; Value: 2.22; Range: < OR =4; Status: F Test Note: ; DIAGNOSIS CRITERIA MMB ng/ml Relative Index (RI) NON-AMI < or = 5 N/A PICHARDO ZONE > 5 < or = 4 AMI > 5 > 4 Lab Order: Troponin; SPEC'M 05/16/16 13:45 Test: TROPONIN I; Value: < 0.02; Range: < 0.10; Units: NG/ML; Status: F Test Note: ; Troponin I Reference Interval for Deed LOCI: 99th Percentile= 0.00-0.045 ng/ml Risk Stratification: <= 0.10 ng/ml Decreased Risk for Adverse Clinical Events. 0.10-1.50 ng/ml Increased Risk for Adverse Clinical Events. Evaluation of additional criterion and/or repeat testing in 2-6 hours is suggested to rule out myocardial damage. >= 1.50 ng/ml Indicative of Myocardial Injury. Lab Order: -Influenza A&B Rapid Antigen - Nose; SPEC'M 05/16/16 13:46 Test: INFLUENZA A RAPID SCR by ICA; Value: INFLUENZA A RESULTS NEGATIVE; Status: F Test: INFLUENZA A RAPID SCR by ICA; Value: Comments:; Status: F Test: INFLUENZA B RAPID SCR by ICA; Value: INFLUENZA B RESULTS NEGATIVE; Status: F Test Note: ; The Influenza test is a direct rapid immunoassay for the qualitative detection of Influenza viral antigen. Cell culture (Viral Culture) testing should be considered to confirm NEGATIVE results and to assist in detecting other viruses that can provide similar clinical symptoms. Please contact the lab within 24 hours ([phone]) if confirmatory testing is desired. Lab Order: Lactic Acid (Pichardo tube on ice); [facility] 05/16/16 13:46 Test: LACTIC ACID SEPSIS PROTOCOL; Value: 1.0; Range: 0.4-2.0; Units: MMOL/L; Status: F Lab Order: -Arterial Blood Gas; [facility] 05/16/16 14:15 Test: ABG pH (ARTERIAL); Value: 7.173; Range: 7.350-7.450; Abnormal: Critical Low; Units: UNITS; Status: F Test: ABG PARTIAL PRESSURE CO2; Value: 86.2; Range: 35.0-45.0; Abnormal: Above upper panic limits; Units: mmHg; Status: F Test: ABG PARTIAL PRESSURE O2; Value: 137.9; Range: 75.0-100.0; Abnormal: Above high normal; Units: mmHg; Status: F Test: ABG TOTAL CO2; Value: 33.6; Range: 23.0-31.0; Abnormal: Above high normal; Units: MEQ/L; Status: F Test: ABG HCO3; Value: 30.9; Range: 22.0-26.0; Abnormal: Above high normal; Units: MEQ/L; Status: F Test: ABG BASE EXCESS; Value: 0.3; Range: -2.0-2.0; Status: F Test: ABG STANDARD HCO3; Value: 24.8; Range: 22.0-26.0; Units: MEQ/L; Status: F Test: ABG O2 SATURATION; Value: 98.7; Range: 95.0-99.0; Units: %; Status: F Test: ABG DEVICE; Value: NASAL STEPHEN; Status: F Lab Order: D-Dimer Quant; [facility] 05/16/16 13:46 Test: D-DIMER QUANT; Value: 1180.1; Range: <500; Abnormal: Above high normal; Units: ng/ml; Status: F Lab Order: RBC MORPH PROF NO CHARGE; 05/16/16 13:45 Test: PLATELET ESTIMATE; Range: NORMAL; Status: I Test: POLYCHROMASIA; Value: 1+; Status: F Test: BASOPHILIC STIPPLING; Value: 1+; Status: F Test: ANISOCYTOSIS; Value: 2+; Status: F Test: MACROCYTOSIS; Value: 3+; Status: F Test: PLATELET ESTIMATE; Value: NORMAL; Range: NORMAL; Status: F Lab Order: -Arterial Blood Gas; [facility] 05/16/16 16:16 Test: ABG pH (ARTERIAL); Value: 7.287; Range: 7.350-7.450; Abnormal: Below low normal; Units: UNITS; Status: F Test: ABG PARTIAL PRESSURE CO2; Value: 58.5; Range: 35.0-45.0; Abnormal: Above high normal; Units: mmHg; Status: F Test: ABG PARTIAL PRESSURE O2; Value: 108.9; Range: 75.0-100.0; Abnormal: Above high normal; Units: mmHg; Status: F Test: ABG TOTAL CO2; Value: 29.1; Range: 23.0-31.0; Units: MEQ/L; Status: F Test: ABG HCO3; Value: 27.3; Range: 22.0-26.0; Abnormal: Above high normal; Units: MEQ/L; Status: F Test: ABG BASE EXCESS; Value: -0.1; Range: -2.0-2.0; Status: F Test: ABG STANDARD HCO3; Value: 24.4; Range: 22.0-26.0; Units: MEQ/L; Status: F Test: ABG O2 SATURATION; Value: 98.2; Range: 95.0-99.0; Units: %; Status: F Test: ABG DEVICE; Value: NASAL STEPHEN; Status: F Lab Order: CARDIAC INJURY PROFILE; [facility] 05/16/16 20:10 Test: CPK CREATINE PHOSPHOKINASE; Value: 47; Range: 26-192; Units: U/L; Status: F Test: CK-MB VALUE MASS; Value: 1.1; Range: 0.0-3.6; Units: NG/ML; Status: F Test: MB/CK RELATIVE INDEX; Value: 2.34; Range: < OR =4; Status: F Test Note: ; DIAGNOSIS CRITERIA MMB ng/ml Relative Index (RI) NON-AMI < or = 5 N/A PICHARDO ZONE > 5 < or = 4 AMI > 5 > 4 Lab Order: TROPONIN; [facility] 05/16/16 20:10 Test: TROPONIN I; Value: < 0.02; Range: < 0.10; Units: NG/ML; Status: F Test Note: ; Troponin I Reference Interval for [place] LOCI: 99th Percentile= 0.00-0.045 ng/ml Risk Stratification: <= 0.10 ng/ml Decreased Risk for Adverse Clinical Events. 0.10-1.50 ng/ml Increased Risk for Adverse Clinical Events. Evaluation of additional criterion and/or repeat testing in 2-6 hours is suggested to rule out myocardial damage. >= 1.50 ng/ml Indicative of Myocardial Injury. Lab Order: URINALYSIS; [facility] 05/16/16 17:09 Test: APPEARANCE, URINE; Value: CLOUDY; Range: CLEAR; Abnormal: Above high normal; Status: F Test: COLOR, URINE; Value: YELLOW; Range: YELLOW; Status: F Test: PH,URINE; Value: 5.0; Range: 5.0-9.0; Units: UNITS; Status: F Test: SPECIFIC GRAVITY URINE AUTO; Value: 1.020; Range: 1.002-1.035; Status: F Test: PROTEIN, URINE AUTO; Value: 3+; Range: NEGATIVE; Abnormal: Above high normal; Units: mg/dL; Status: F Test: GLUCOSE, URINE (UA) AUTO; Value: NEGATIVE; Range: NEGATIVE; Units: mg/dL; Status: F Test: KETONE, URINE AUTO; Value: NEGATIVE; Range: NEGATIVE; Units: mg/dL; Status: F Test: UROBILINOGEN, URINE AUTO; Value: 0.2; Range: 0.0-2.0; Units: mg/dL; Status: F Test: BILIRUBIN, URINE AUTO; Value: NEGATIVE; Range: NEGATIVE; Status: F Test: NITRITE, URINE AUTO; Value: NEGATIVE; Range: NEGATIVE; Status: F Test: LEUKOCYTE ESTERASE, URINE AUTO; Value: 1+; Range: NEGATIVE; Abnormal: Above high normal; Status: F Test: BLOOD, URINE BLOOD; Value: 1+; Range: NEGATIVE; Abnormal: Above high normal; Status: F Test: WBC, URINE AUTO; Value: 56; Range: 0-3; Abnormal: Above high normal; Units: /HPF; Status: F Test: RBC, URINE AUTO; Value: 11; Range: 0-3; Abnormal: Above high normal; Units: /HPF; Status: F Test: BACTERIA, URINE AUTO; Value: 3+; Range: NEGATIVE; Abnormal: Above high normal; Status: F Test: SQUAMOUS EPITHELIAL CELL UR AU; Value: 0; Range: 0-6; Units: /HPF; Status: F Test: MUCUS, URINE; Value: SMALL; Range: NEGATIVE; Status: F Test: HYALINE CAST, URINE AUTO; Value: 4; Range: 0-1; Units: /LPF; Status: F Test: AMORPHOUS SEDIMENT; Value: SMALL; Range: NEGATIVE; Abnormal: Above high normal; Status: F Lab Order: PROTHROMBIN TIME PROFILE\E\INR; SPEC'M 05/17/16 04:17 Test: PROTHROMBIN TIME; Value: 26.8; Range: 12.3-14.5; Abnormal: Above high normal; Units: SECONDS; Status: F Test: INR; Value: 2.47; Status: F Test Note: ; THERAPUTIC HUMAN INR VALUES INDICATIONS NORMAL RANGES PROPHYLAXIS/TREATMENT OF: VENOUS THROMBOSIS 2.0-3.0 PULMONARY EMBOLISM 2.0-3.0 PREVENTION OF SYSTEMIC EMBOLISM FROM: TISSUE HEART VALVES 2.0-3.0 ACUTE MYOCARDIAL INFARCTION 2.0-3.0 VALVULAR HEART DISEASE 2.0-3.0 ATRIAL FIBRILLATION 2.0-3.0 MECHANICAL VALVES(HIGH RISK) 2.5-3.5 RECURRENT MYOCARDIAL INFARCTION 2.5-3.5 Lab Order: ARTERIAL BLOOD GAS; [facility] 05/16/16 20:55 Test: ABG pH (ARTERIAL); Value: 7.374; Range: 7.350-7.450; Units: UNITS; Status: F Test: ABG PARTIAL PRESSURE CO2; Value: 53.9; Range: 35.0-45.0; Abnormal: Above high normal; Units: mmHg; Status: F Test: ABG PARTIAL PRESSURE O2; Value: 61.3; Range: 75.0-100.0; Abnormal: Below low normal; Units: mmHg; Status: F Test: ABG TOTAL CO2; Value: 32.4; Range: 23.0-31.0; Abnormal: Above high normal; Units: MEQ/L; Status: F Test: ABG HCO3; Value: 30.7; Range: 22.0-26.0; Abnormal: Above high normal; Units: MEQ/L; Status: F Test: ABG BASE EXCESS; Value: 4.5; Range: -2.0-2.0; Abnormal: Above high normal; Status: F Test: ABG STANDARD HCO3; Value: 28.4; Range: 22.0-26.0; Abnormal: Above high normal; Units: MEQ/L; Status: F Test: ABG O2 SATURATION; Value: 93.2; Range: 95.0-99.0; Abnormal: Below low normal; Units: %; Status: F Lab Order: CARDIAC INJURY PROFILE; [facility] 05/17/16 04:17 Test: CPK CREATINE PHOSPHOKINASE; Value: 92; Range: 26-192; Abnormal: Delta; Units: U/L; Status: F Test: CK-MB VALUE MASS; Value: 1.0; Range: 0.0-3.6; Units: NG/ML; Status: F Test: MB/CK RELATIVE INDEX; Value: 1.08; Range: < OR =4; Status: F Test Note: ; DIAGNOSIS CRITERIA MMB ng/ml Relative Index (RI) NON-AMI < or = 5 N/A PICHARDO ZONE > 5 < or = 4 AMI > 5 > 4 Lab Order: TROPONIN; [facility] 05/17/16 04:17 Test: TROPONIN I; Value: 0.02; Range: < 0.10; Units: NG/ML; Status: F Test Note: ; Troponin I Reference Interval for [email or web address] LOCI: 99th Percentile= 0.00-0.045 ng/ml Risk Stratification: <= 0.10 ng/ml Decreased Risk for Adverse Clinical Events. 0.10-1.50 ng/ml Increased Risk for Adverse Clinical Events. Evaluation of additional criterion and/or repeat testing in 2-6 hours is suggested to rule out myocardial damage. >= 1.50 ng/ml Indicative of Myocardial Injury. Lab Order: CBC WITH DIFFERENTIAL; SPEC'M 05/17/16 04:17 Test: WHITE BLOOD COUNT; Value: 4.2; Range: 4.0-10.0; Units: K/mm3; Status: F Test: RED BLOOD COUNT; Value: 2.92; Range: 4.00-5.40; Abnormal: Below low normal; Units: M/mm3; Status: F Test: HEMOGLOBIN; Value: 9.9; Range: 12.0-16.0; Abnormal: Below low normal; Units: g/dl; Status: F Test: HEMATOCRIT; Value: 31.6; Range: 36.0-47.0; Abnormal: Below low normal; Units: %; Status: F Test: MEAN CORPUSCULAR VOLUME; Value: 108.2; Range: 80.0-96.0; Abnormal: Above high normal; Units: fl; Status: F Test: MEAN CORPUSCULAR HEMOGLOBIN; Value: 33.9; Range: 27.0-33.0; Abnormal: Above high normal; Units: pg; Status: F Test: MEAN CORPUSCULAR HGB CONC; Value: 31.3; Range: 32.0-36.5; Abnormal: Below low normal; Units: g/dl; Status: F Test: RED CELL DISTRIBUTION WIDTH; Value: 15.7; Range: 11.5-14.5; Abnormal: Above high normal; Units: %; Status: F Test: PLATELET COUNT, AUTOMATED; Value: 167; Range: 150-450; Units: k/mm3; Status: F Test: NEUTROPHILS; Value: 62; Range: 35-75; Units: %; Status: F Test: BANDS; Value: 3; Range: < 11; Units: %; Status: F Test: LYMPHOCYTES; Value: 30; Range: 16-52; Units: %; Status: F Test: MONOCYTES; Value: 4; Range: 0-8; Units: %; Status: F Test: ATYPICAL LYMPH; Value: 1; Range: 0-5; Units: %; Status: F Test: NUCLEATED RED BLOOD CELL; Value: 1; Range: 0-0; Abnormal: Above high normal; Units: %; Status: F Test: BASOPHILIC STIPPLING; Value: 1+; Status: F Test: ANISOCYTOSIS; Value: 1+; Status: F Test: MACROCYTOSIS; Value: 2+; Status: F Lab Order: Fingerstick Blood Sugar; SPEC'M 05/16/16 20:49 Test: BEDSIDE GLUCOSE; Value: 201; Range: 83-110; Abnormal: Above high normal; Units: MG/DL; Status: F Lab Order: COMPLETE COMPHRENSIVE METABOLI; SPEC'M 05/17/16 04:17 Test: GLUCOSE, FASTING; Value: 193; Range: 83-110; Abnormal: Above high normal; Units: MG/DL; Status: F Test: BLOOD UREA NITROGEN; Value: 23; Range: 7-18; Abnormal: Above high normal; Units: MG/DL; Status: F Test: CREATININE FOR GFR; Value: 1.11; Range: 0.55-1.02; Abnormal: Above high normal; Units: MG/DL; Status: F Test: GLOMERULAR FILTRATION RATE; Value: 51.4; Range: >39; Status: F Test: SODIUM LEVEL; Value: 149; Range: 136-145; Abnormal: Above high normal; Units: MEQ/L; Status: F Test: POTASSIUM SERUM; Value: 4.5; Range: 3.5-5.1; Units: MEQ/L; Status: F Test: CHLORIDE LEVEL; Value: 112; Range: 98-107; Abnormal: Above high normal; Units: MEQ/L; Status: F Test: CARBON DIOXIDE LEVEL; Value: 29; Range: 21-32; Units: MEQ/L; Status: F Test: ANION GAP; Value: 8; Range: 8-16; Units: MEQ/L; Status: F Test: CALCIUM LEVEL; Value: 7.9; Range: 8.8-10.2; Abnormal: Below low normal; Units: MG/DL; Status: F Test: AST/SGOT; Value: 22; Range: 15-37; Units: U/L; Status: F Test: ALT/SGPT; Value: 12; Range: 12-78; Units: U/L; Status: F Test: ALKALINE PHOSPHATASE; Value: 90; Range: 45-117; Units: U/L; Status: F Test: BILIRUBIN,TOTAL; Value: 0.9; Range: 0.2-1.0; Units: MG/DL; Status: F Test: TOTAL PROTEIN; Value: 5.1; Range: 6.4-8.2; Abnormal: Below low normal; Units: GM/DL; Status: F Test: ALBUMIN; Value: 2.2; Range: 3.2-5.2; Abnormal: Below low normal; Units: GM/DL; Status: F Test: ALBUMIN/GLOBULIN RATIO; Value: 0.76; Range: 1.00-1.93; Abnormal: Below low normal; Status: F Test Note: ; Units are mL/min/1.73 m2 Chronic Kidney Disease Staging per NKF: Stage I & II GFR >=60 Normal to Mildly Decreased Stage III GFR 30-59 Moderately Decreased Stage IV GFR 15-29 Severely Decreased Stage V GFR <15 Very Little GFR Left ESRD GFR <15 on GLOBAL COMPENSATION ANALYST Lab Order: MAGNESIUM LEVEL; SPEC'M 05/17/16 04:17 Test: MAGNESIUM LEVEL; Value: 1.7; Range: 1.8-2.4; Abnormal: Below low normal; Units: MG/DL; Status: F Lab Order: PLATELET ESTIMATE; SPEC'M 05/17/16 04:17 Test: PLATELET ESTIMATE; Value: NORMAL; Range: NORMAL; Status: F Radiology Order: portable chest Test: portable chest REASON FOR EXAMINATION: Shortness of Breath; AP PORTABLE CHEST: 05/16/2016.; ; Comparison: 11/03/2015, 06/30/2015, 04/30/2015; ; Clinical history: Dyspnea.; ; Findings. Cardiomegaly with left atrial and ventricular enlargement. There is; vascular redistribution with alveolar and interstitial pulmonary edema.; Effusions are suspected bilaterally. There is basilar atelectasis and/or; infiltrate, left greater than right. Calcified tortuous aortic arch without; change. Airway midline. Bones with degenerative changes in the shoulders and; spine.; ; Impression:; ; 1. 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; : 1945 Requested By: YISSEL Lares; Order Number: [id number] Reading MD: Mary Kay Oviedo; Measurements; Intervals [place]; Rate: 87 P: 59; RI: 167 QRS: -13; QRSD: 102 T: 46; QT: 386; QTc: 465; Interpretive Statements; SINUS RHYTHM WITH OCCASIONAL VENTRICULAR PREMATURE COMPLEXES WITH FREQUENT; SUPRAVENTRICULAR PREMATURE COMPLEXES IN A BIGEMINAL; BASELINE ARTIFACT LIMITS INTERPRETATION; MODERATE ST DEPRESSION; ; Electronically Signed On 05-16-2016 20:11:50 EST by Mary Kay Oviedo; Radiology Order: Ultrasound Bilateral LE R/O DVT Test: Ultrasound Bilateral LE R/O DVT REASON FOR EXAMINATION: Deformity/Swelling; Duplex extremity venous ultrasound: Bilateral lower extremity.; ; History: Question DVT.; ; Findings: Exam quality was inhibited by patient body habitus and soft tissue; edema as well as bandages. As a result the right distal femoral vein could not; be seen. The deep veins are otherwise anechoic and fully compressible from the; groin to the popliteal fossa in the right and left lower extremity. Color flow; imaging is homogeneous. Spectral Doppler interrogation demonstrates intact; respiratory variation in flow and normal manual augmentation of flow. There is; no evidence of deep vein thrombosis.; ; Impression:; ; Some limitation of image quality; distal right femoral vein could not be seen due; to edema, otherwise negative bilateral lower extremity duplex venous ultrasound.; No evidence of deep vein thrombosis.; ; ; Signed by; Devin Caruso MD 05/16/2016 04:51 P; Radiology Order: CT Chest Angio R/O PE Test: CT Chest Angio R/O PE REASON FOR EXAMINATION: Shortness of Breath; CT pulmonary angiogram: With IV contrast.; ; History: Shortness of breath.; ; Comparison studies: Today's chest x-ray. Comparison chest CT study November [id number]; ; Contrast dose: 75 cc's of Isovue 370 are administered intravenously.; ; CT technique: Helical scanning is acquired and overlapping 1.5 mm and contiguous; 3 mm axial images are reformatted. In addition, a 3-D work station is deployed; to generate thick slab maximum intensity projection images in sagittal and; coronal imaging projections.; ; CT pulmonary angiographic findings: There is good opacification of the pulmonary; arterial tree and there is no CT evidence of pulmonary embolism. There are small; bilateral pleural effusions. There is moderate cardiomegaly with four-chamber; dilation. The left atrium measures 5.9 cm in AP dimension. The thoracic aorta; shows atherosclerotic calcification, but no evidence of dissection or aneurysm.; Maximum intensity projection images show no evidence of filling defect. There is; compressive atelectasis in the lower lobes bilaterally associated with the; pleural effusions. There are scattered normal sized mediastinal lymph nodes.; Fissural thickening is seen. Some vascular congestion is noted. There is; evidence of a ventral hernia in the upper abdomen seen on the bottom most slices; in the field of view. This appears to be transmitting nondilated bowel loops.; There are clips in the gallbladder fossa.; ; Impression:; ; 1. CHF pattern with bilateral pleural effusions, pulmonary vascular congestion; and cardiomegaly.; ; 2. No CT evidence of pulmonary embolism.; ; 3. Epigastric ventral hernia again noted. Stable mediastinal lymph nodes seen.; ; ; ; ; Signed by; Devin Caruso MD 05/16/2016 04:51 P; Outcome: 16:17 Decision to Hospitalize by Provider. br1 05/17 07:43 Patient left the ED. kcs Signatures: Dispatcher [employer] EDMS Zoie Rivera RN RN kcs Laverne Hobson, Cigarette Tester Unit deg Yissel Hodges MD MD br1 Yesica Moore RN RN rs3 Divya Castillo RN RN hs1 Jojo Kauffman, DANCE HISTORIAN DANCE HISTORIAN Katerin Tucker RN RN sls1 Zhang Mathew,RT RT rs5 Jaince LegerRN RN js13 Ly, Lazaro hgl Kristine Snyder Jordain, DANCE HISTORIAN DANCE HISTORIAN jlf Michelle Hernández,RN RN nr1 Jagruti Case Kim,RN RN toby2 Pilar SeverinoRN RN ja5 Corrections: (The following items were deleted from the chart) 05/16 14:21 13:15 Home Meds: Combivent 20/100 Inhl 2 puff four times a day; hs1 rs3 MTDD
--- NOTE | 2016-05-17 07:44 | EDDOCDS ---
Physician Documentation [facility] Name: Carole Lopez Age: 70 yrs Sex: Female : 1945 Arrival Date: 05/16/2016 Time: 12:59 Bed Admit Hold Private MD: Disposition: 05/16/16 16:17 Hospitalization ordered by Sheree Salinas for Inpatient Admission. Preliminary diagnosis are Acute respiratory failure, Acute systolic (congestive) heart failure. - Bed requested for M ICU. - Status is Inpatient Admission. kcs - Condition is Stable. - Problem is new. - Symptoms are unchanged. Historical: - Allergies: codeine; Latex; metal; Percocet; Ramipril; SULFA (SULFONAMIDES) (Hives); Tape; - Home Meds: 1. portable oxygen 2. Norvasc 5 mg Oral tab 1 tab once daily 3. furosemide 40 mg Oral tab 2 tabs once daily 2 tabs every morning, one tab in afternoon 4. spironolactone 25 mg Oral tab 1 tab once daily 5. Travatan Z 0.004 % ophthalmic drop 1 drop once daily 6. Calcium + Vitamin D 600 mg calcium- 200 unit Oral tab daily 7. 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 - Exposure Risk Screening:: None identified. Vital Signs: 05/16 13:17 Resp 44; Pulse Ox 69% on R/A; hs1 13:17 BP 177 / 88; Pulse 96; Resp 44; Pulse Ox 99% on 15% Non-rebreather mask; Weight 133.36 hs1 kg / 294.01 lbs; Height 5 ft. 3 in. (160.02 cm); Pain 0/10; 13:39 BP 184 / 81 (auto/); kas2 13:39 Pulse 88 MON; Pulse Ox 100% ; kas2 13:51 BP 199 / 82 (auto/); rs3 13:51 Pulse 89 MON; Pulse Ox 94% ; rs3 13:58 Temp 97.7(O); rs3 14:14 Pulse 83 MON; Pulse Ox 98% ; rs3 14:15 BP 185 / 75 (auto/); rs3 14:15 Pulse 84 MON; Pulse Ox 97% ; rs3 14:30 Pulse 81 MON; Pulse Ox 99% ; kas2 14:45 BP 171 / 71 (auto/); rs3 14:46 Pulse 78 MON; Pulse Ox 99% ; rs3 15:00 BP 189 / 74 (auto/); rs3 15:01 Pulse 77 MON; Pulse Ox 99% ; rs3 15:18 BP 148 / 65 (auto/); rs3 15:20 Pulse 80 MON; Pulse Ox 98% ; rs3 15:30 BP 146 / 61 (auto/); rs3 15:30 Pulse 81 MON; Resp 20; Pulse Ox 99% ; rs3 15:37 Pulse 72 MON; Pulse Ox 97% ; rs3 15:45 BP 141 / 61 (auto/); rs3 16:00 BP 141 / 62 (auto/); rs3 16:00 Pulse 65 MON; Pulse Ox 98% ; rs3 16:15 BP 146 / 66 (auto/); rs3 16:15 Pulse 61 MON; Pulse Ox 99% ; rs3 16:30 BP 152 / 63 (auto/); rs3 16:30 Pulse 67 MON; Pulse Ox 98% ; rs3 16:53 BP 168 / 92 (auto/); kas2 16:53 Pulse 70 MON; Pulse Ox 97% ; kas2 16:57 BP 152 / 65 (auto/); rs3 16:57 Pulse 61 MON; Pulse Ox 97% ; rs3 17:00 BP 159 / 67 (auto/); rs3 17:00 Pulse 71 MON; Pulse Ox 98% ; rs3 17:15 BP 157 / 62 (auto/); rs3 17:15 Pulse 70 MON; Pulse Ox 99% ; rs3 17:30 BP 143 / 63 (auto/); rs3 17:30 Pulse 70 MON; Pulse Ox 98% ; rs3 17:45 BP 147 / 60 (auto/); rs3 17:45 Pulse 72 MON; Pulse Ox 99% ; rs3 18:00 BP 133 / 56 (auto/); rs3 18:00 Pulse 80 MON; Pulse Ox 96% ; rs3 18:30 BP 122 / 78 (auto/); rs3 18:30 Pulse 74 MON; Pulse Ox 96% ; rs3 18:44 Pulse 75 MON; Pulse Ox 96% ; rs3 18:45 BP 134 / 74 (auto/); kas2 18:45 Pulse 76 MON; Pulse Ox 95% ; kas2 19:00 BP 150 / 87 (auto/); kas2 19:00 Pulse 77 MON; Pulse Ox 97% ; kas2 19:15 BP 156 / 60 (auto/); kas2 19:15 Pulse 76 MON; Pulse Ox 97% ; kas2 19:43 BP 163 / 95 (auto/); kas2 19:43 Pulse 77 MON; Pulse Ox 96% ; kas2 19:45 BP 161 / 69 (auto/); kas2 19:45 Pulse 78 MON; Pulse Ox 97% ; kas2 20:00 BP 161 / 65 (auto/); kas2 20:00 Pulse 78 MON; Pulse Ox 96% ; kas2 20:18 BP 129 / 59 (auto/); kas2 20:18 Pulse 78 MON; Pulse Ox 96% ; kas2 20:30 BP 147 / 58 (auto/); kas2 20:30 Pulse 82 MON; Pulse Ox 95% ; kas2 20:45 BP 175 / 68 (auto/); kas2 20:45 Pulse 77 MON; Pulse Ox 96% ; kas2 21:00 Resp 20; Temp 98.0(O); Pain 0/10; kas2 21:06 BP 152 / 57 (auto/); kas2 21:06 Pulse 109 MON; Pulse Ox 90% ; kas2 21:15 BP 158 / 65 (auto/); kas2 21:15 Pulse Ox 91% ; kas2 21:30 BP 165 / 66 (auto/); kas2 21:30 Pulse Ox 91% ; kas2 21:45 BP 167 / 66 (auto/); kas2 21:45 Pulse Ox 91% ; kas2 22:15 BP 98 / 47 (auto/); kas2 22:15 Pulse Ox 90% ; kas2 22:20 BP 176 / 70 (auto/); kas2 22:20 Pulse Ox 90% ; kas2 22:30 BP 189 / 76 (auto/); kas2 22:30 Pulse 77 MON; Pulse Ox 93% ; kas2 22:45 BP 134 / 65 (auto/); kas2 22:45 Pulse 73 MON; Pulse Ox 95% ; kas2 23:00 BP 150 / 72 (auto/); kas2 23:00 Pulse 72 MON; kas2 23:15 BP 171 / 68 (auto/); kas2 23:15 Pulse 74 MON; Pulse Ox 96% ; kas2 23:30 BP 143 / 65 (auto/); kas2 23:30 Pulse 75 MON; Pulse Ox 96% ; kas2 23:36 Resp 18; Temp 97.8(O); kas2 02/07 00:00 BP 124 / 88 (auto/); kas2 00:00 Pulse 79 MON; kas2 00:15 BP 154 / 58 (auto/); kas2 00:15 Pulse 78 MON; kas2 00:30 BP 170 / 80 (auto/); kas2 00:30 Pulse 76 MON; Pulse Ox 97% ; kas2 00:45 BP 139 / 53 (auto/); kas2 00:45 Pulse 84 MON; Pulse Ox 96% ; kas2 01:15 BP 147 / 60 (auto/); kas2 01:15 Pulse 78 MON; Pulse Ox 96% ; kas2 01:45 Resp 18; Temp 97.9; kas2 02:07 BP 184 / 75 (auto/); kas2 02:07 Pulse 80 MON; Pulse Ox 97% ; kas2 02:35 BP 162 / 74; Pulse 76; Resp 18; Temp 98.1(O); Pain 0/10; kas2 03:45 BP 134 / 51 (auto/); kas2 03:45 Pulse 78 MON; Pulse Ox 97% ; kas2 04:00 BP 143 / 59 (auto/); kas2 04:00 Pulse 79 MON; Pulse Ox 97% ; kas2 04:30 BP 117 / 54 (auto/); kas2 04:30 Pulse 82 MON; Pulse Ox 98% ; kas2 04:45 BP 119 / 52 (auto/); kas2 04:45 Pulse 82 MON; Pulse Ox 97% ; kas2 05:00 BP 107 / 51 (auto/); kas2 05:00 Pulse 82 MON; Pulse Ox 98% ; kas2 05:15 BP 123 / 53 (auto/); kas2 05:15 Pulse 79 MON; Pulse Ox 95% ; kas2 05:30 BP 112 / 52 (auto/); kas2 05:30 Pulse 73 MON; Pulse Ox 95% ; kas2 05:32 Resp 20; Temp 100.1(TE); kas2 05:45 BP 116 / 53 (auto/); kas2 05:45 Pulse 80 MON; Pulse Ox 95% ; kas2 06:00 BP 121 / 53 (auto/); kas2 06:00 Pulse 77 MON; Pulse Ox 95% ; kas2 06:15 BP 122 / 53 (auto/); kas2 06:15 Pulse 73 MON; Pulse Ox 95% ; kas2 06:26 Temp 98.6; luis e 06:39 BP 121 / 56 (auto/); kas2 06:39 Pulse 80 MON; Pulse Ox 96% ; kas2 06:44 Resp 20; kas2 05/16 13:17 Body Mass Index 52.08 (133.36 kg, 160.02 cm) hs1 MDM: 05/16 13:08 Core Placer/Pulse Ox/q 30 min VS ordered. br1 13:08 IV Saline Lock ordered. br1 13:08 Rhythm Strip to chart ordered. br1 13:08 Undress patient appropriately for examination ordered. br1 13:09 B-Type Natiuretic Peptide Ordered. EDMS 13:09 Basic Metabolic Profile Ordered. EDMS 13:09 CBC with Diff Ordered. EDMS 13:09 Cardiac Injury Profile Ordered. EDMS 13:09 Troponin Ordered. EDMS 13:09 portable chest Ordered. EDMS 13:09 ECG WITH READING ER PHYS+CARDIAG ordered. EDMS 13:24 Oral Temp ordered. br1 13:24 -Blood Culture (Adults Only), peripheral from different site, or from device/port/PICC br1 etc. if present ordered. 13:24 Albuterol-Ipratropium 3 ml Inhalation once ordered. br1 13:24 Call Respiratory ordered. br1 13:25 Lactic Acid (Pichardo tube on ice) Ordered. EDMS 13:25 -Influenza A&B Rapid Antigen - Nose Ordered. EDMS 13:25 -Blood Culture Ordered. EDMS 13:25 -Arterial Blood Gas Ordered. EDMS 13:25 D-Dimer Quant Ordered. EDMS 13:25 Oxygen at 4L/Min NC or Home dosage ordered. br1 13:55 -Blood Culture (Adults Only), peripheral from different site, or from device/port/PICC deg etc. if present complete. 13:55 Call Respiratory complete. deg 13:56 BLOOD CULTURES Ordered. EDMS 14:23 D-Dimer Quant Reviewed. br1 14:23 -Influenza A&B Rapid Antigen - Nose Reviewed. br1 14:24 Ultrasound Bilateral LE R/O DVT Ordered. EDMS 14:38 Basic Metabolic Profile Reviewed. br1 14:38 -Arterial Blood Gas Reviewed. br1 14:38 Cardiac Injury Profile Reviewed. br1 14:38 Troponin Reviewed. br1 14:38 Lactic Acid (Pichardo tube on ice) Reviewed. br1 14:44 CT Chest Angio R/O PE Ordered. EDMS 14:46 RBC MORPH PROF NO CHARGE Ordered. EDMS 14:57 Furosemide 40 mg IVP once ordered. br1 14:57 CBC with Diff Reviewed. br1 15:20 Beard ordered. br1 15:24 BIPAP INPATIENT+RESP-VENT ordered. EDMS 15:24 BED REQUEST+ADM ordered. EDMS 16:06 -Arterial Blood Gas Ordered. EDMS 16:36 Admission / Observation Status ordered. EDMS 16:37 CARDIAC INJURY PROFILE Ordered. EDMS 16:37 TROPONIN Ordered. EDMS 16:37 URINALYSIS Ordered. EDMS 16:37 URINE CULTURE Ordered. EDMS 16:51 PROTHROMBIN TIME PROFILE\E\INR Ordered. EDMS 16:58 ECHOCARD,DOPPLER/COLOR FLOW ordered. EDMS 18:05 ARTERIAL BLOOD GAS Ordered. EDMS 18:05 BIPAP INPATIENT ordered. EDMS 18:05 PORTABLE CHEST X-RAY Ordered. EDMS 18:06 PORTABLE CHEST X-RAY Ordered. EDMS 18:06 PORTABLE CHEST X-RAY Ordered. EDMS 18:37 Financial registration complete. gjb 18:44 [facility] Payment Agreement was scanned into [employer] and attached to record. gjb 19:32 CARDIAC INJURY PROFILE Ordered. EDMS 19:32 CARDIAC INJURY PROFILE Ordered. EDMS 19:32 TROPONIN Ordered. EDMS 19:32 TROPONIN Ordered. EDMS 19:32 PROTHROMBIN TIME PROFILE\E\INR Ordered. EDMS 19:32 CBC WITH DIFFERENTIAL Ordered. EDMS 19:33 ARTERIAL BLOOD GAS Ordered. EDMS 21:13 Fingerstick Blood Sugar Ordered. EDMS 02/ 04:23 COMPLETE COMPHRENSIVE METABOLI Ordered. EDMS 04:23 MAGNESIUM LEVEL Ordered. EDMS 04:31 DIFFERENTIAL NO CHARGE Ordered. EDMS 04:31 PLATELET ESTIMATE Ordered. EDMS Point of Care Testing: Blood Glucose: 05/16 20:58 Blood Glucose: 201 mg/dL; kas2 Ranges: Administered Medications: 14:20 Drug: Albuterol-Ipratropium 3 ml [ipratropium-albuterol 0.5 mg-3 mg(2.5 mg base)/3 mL kjn nebulization soln (3 mL)] Route: Inhalation; 15:36 Drug: Furosemide 40 mg [furosemide 10 mg/mL injection solution (4 mL)] Route: IVP; rs3 Site: left antecubital; Signatures: Dispatcher [employer] EDMS Zoie Rivera, RN RN kcs Laverne Hobson, Senior [employer] Applications Developer Unit deg Manuel Hodges MD MD br1 Yesica Moore RN RN rs3 Divya Castillo RN RN hs1 Katerin Kidd RN RN sls1 Jagruti Case Katherine kjn The chart was reviewed and I authenticate all verbal orders and agree with the evaluation and treatment provided.Corrections: (The following items were deleted from the chart) 14:21 13:15 Home Meds: Combivent 20/100 Inhl 2 puff four times a day; hs1 rs3 16:37 16:37 BLOOD CULTURES ordered. EDNE EDMS 16:37 16:37 BLOOD CULTURES ordered. EDNE EDMS 16:50 16:37 PROTHROMBIN TIME PROFILE\E\INR ordered. EDNE EDMS 05/17 04:23 05/16 19:32 COMPLETE COMPHRENSIVE METABOLI ordered. EDNE EDMS 05/17 04:23 05/16 19:32 MAGNESIUM LEVEL ordered. EDNE EDMS Attachments: 18:44 [facility] Payment Agreement gjb MTDD
[2016-05-17] MEDS ORDERED: MAG SULF 1GM/100ML (MAG RUN) 1 GM in APPROPRIATE DILUENT 1 EA IV ONE (08:00)
--- NOTE | 2016-05-17 08:02 | REP ---
Clinical: Pulmonary edema. Hypoxia. Comparison: 05/16/2016. Findings: Cardiomegaly with indistinct pulmonary vasculature, cephalization, and increased interstitial markings along with bibasilar opacities are essentially unchanged and consistent with CHF/pulmonary edema. Bibasilar atelectasis and layering effusions cannot be excluded. No pneumothorax. Impression: Moderate CHF/pulmonary edema unchanged from prior examination. Signed by Gelacio Kaufman MD 05/17/2016 07:53 A
[2016-05-17] MEDS: HumaLOG INSULIN (NovoLOG) PER UNIT SC SCH ×4 (08:29→21:00)
[2016-05-17] MEDS: FUROSEMIDE 40 MG/4 ML VIAL (J1940) IV SCH ×2 (08:29→16:43)
[2016-05-17] MEDS: FAMOTIDINE 20 MG TAB PO SCH (08:30)
[2016-05-17] MEDS: DOCUSATE SODIUM 100 MG CAP PO SCH ×2 (08:30→21:00)
[2016-05-17] MEDS: ACETAMINOPHEN TAB 650MG DOSE (2X325MG) PO PRN ×2 (08:30→16:26)
[2016-05-17] MEDS: PANTOPRAZOLE 40MG TAB (PROTONIX) PO SCH (08:30)
[2016-05-17] MEDS: SPIRONOLACTONE 50 MG TAB PO SCH (08:31)
[2016-05-17] MEDS: amLODIPine 5 MG TAB PO SCH (08:31)
[2016-05-17] MEDS: METOPROLOL TART 50 MG TAB PO SCH ×2 (08:32→21:52)
[2016-05-17] MEDS ORDERED: RIVAROXABAN 20 MG TAB (XARELTO) PO SCH (09:00)
[2016-05-17 09:35] LABS: ABG BASE EXCESS 2.8 (-2.0-2.0); ABG HCO3 28.2 MEQ/L (22.0-26.0); ABG PARTIAL PRESSURE CO2 47.3 mmHg (35.0-45.0); ABG PARTIAL PRESSURE O2 84.4 mmHg (75.0-100.0); ABG TOTAL CO2 29.7 MEQ/L (23.0-31.0); ABG pH (ARTERIAL) 7.394 UNITS (7.350-7.450)
[2016-05-17] MEDS: NYSTATIN 100,000 UNITS/GM TOPICAL PWD 15 GM TOP SCH ×2 (12:23→21:51)
[2016-05-17] MEDS: cefTRIAXone SOD 1 GM in D5W MINI-BAG PLUS 50 ML IV SCH (14:28)
[2016-05-17 18:16] LABS: INR 5.31
[2016-05-17] MEDS: SIMVASTATIN 20 MG TAB PO SCH (21:00)
[2016-05-17] MEDS: LEVEMIR (INSULIN DETEMIR) 1 UNITS/0.01ML SC SCH (21:52)
[2016-05-17] MEDS: LATANOPROST 0.005% OPHTH SOLN 2.5 ML OS SCH (21:53)
[2016-05-18] VITALS (9 sets, daily range): BP systolic 87–183; BP diastolic 48–89; O2SAT 91–97
[2016-05-18] MEDS ORDERED: ACETAMINOPHEN 650 MG SUPP PR PRN (00:15)
[2016-05-18] MEDS ORDERED: KETOROLAC 30 MG/ML VIAL (J1885) IV STA (04:10)
[2016-05-18 04:55] LABS: MEAN CORPUSCULAR HEMOGLOBIN 33.5 pg (27.0-33.0); MEAN CORPUSCULAR HGB CONC 31.2 g/dl (32.0-36.5); MEAN CORPUSCULAR VOLUME 107.5 fl (80.0-96.0); PLATELET COUNT, AUTOMATED 115 k/mm3 (150-450); WHITE BLOOD COUNT 1.8 K/mm3 (4.0-10.0)
[2016-05-18 05:02] LABS: INR 4.22
[2016-05-18 05:07] LABS: ALBUMIN/GLOBULIN RATIO 0.67 (1.00-1.93); BILIRUBIN,TOTAL 1.9 MG/DL (0.2-1.0); CALCIUM LEVEL 8.3 MG/DL (8.8-10.2); CREATININE FOR GFR 1.5 MG/DL (0.55-1.02); GLOMERULAR FILTRATION RATE 36.3 (>39); MAGNESIUM LEVEL 1.8 MG/DL (1.8-2.4); POTASSIUM SERUM 3.9 MEQ/L (3.5-5.1)
[2016-05-18 05:38] LABS: BANDS 7 % (< 11); CORRECTED WHITE BLOOD COUNT 1.6 K/mm3; NUCLEATED RED BLOOD CELL 14 % (0-0)
[2016-05-18 05:39] LABS: ANISOCYTOSIS 1+
[2016-05-18 05:40] LABS: HOWELL-JOLLY BODIES 1+; HYPOCHROMASIA 1+
[2016-05-18] MEDS ORDERED: DEXTROSE 50% 50 ML SYRINGE IV STA (05:51)
[2016-05-18 06:10] LABS: ABG BASE EXCESS -0.9 (-2.0-2.0); ABG HCO3 26.6 MEQ/L (22.0-26.0); ABG PARTIAL PRESSURE CO2 59.4 mmHg (35.0-45.0); ABG PARTIAL PRESSURE O2 76.4 mmHg (75.0-100.0); ABG STANDARD HCO3 23.6 MEQ/L (22.0-26.0); ABG TOTAL CO2 28.4 MEQ/L (23.0-31.0); ABG pH (ARTERIAL) 7.269 UNITS (7.350-7.450)
--- NOTE | 2016-05-18 07:02 | REP ---
Clinical: Hypoxemia with history of pulmonary edema. Comparison: 03/16/2017. Findings: Increased interstitial markings with prominent pulmonary vasculature, cephalization, and basilar opacities (left greater than right) as well as cardiomegaly are similar to prior examination and compatible with pulmonary edema. The cardiac silhouette is incompletely evaluated and a pericardial effusion cannot definitively be excluded. Layering pleural effusions cannot be excluded as well. No pneumothorax. Skeletal structures stable. Impression: Findings as described above similar to prior examination and consistent with continued pulmonary edema/CHF. Signed by Gelacio Kaufman MD 05/18/2016 06:53 A
[2016-05-18] MEDS: HumaLOG INSULIN (NovoLOG) PER UNIT SC SCH ×2 (07:30→12:00)
[2016-05-18] MEDS: DEXTROSE 50% 50 ML SYRINGE IV PRN ×2 (08:28→13:35)
[2016-05-18] MEDS: FUROSEMIDE 40 MG/4 ML VIAL (J1940) IV SCH (09:00)
[2016-05-18] MEDS: PANTOPRAZOLE 40MG TAB (PROTONIX) PO SCH (09:00)
[2016-05-18] MEDS ORDERED: PANTOPRAZOLE 40MG INJ (PROTONIX) (C9113) IV SCH (09:00)
[2016-05-18] MEDS: METOPROLOL TART 50 MG TAB PO SCH (09:00)
[2016-05-18] MEDS: FAMOTIDINE 20 MG TAB PO SCH (09:00)
[2016-05-18] MEDS: DOCUSATE SODIUM 100 MG CAP PO SCH (09:00)
[2016-05-18] MEDS: SPIRONOLACTONE 50 MG TAB PO SCH (09:00)
[2016-05-18] MEDS: amLODIPine 5 MG TAB PO SCH (09:00)
[2016-05-18] MEDS ORDERED: CHLORHEXIDINE GLUCONATE 0.12 % 15ML UDC (PERIDEX ORAL RINSE) MT SCH (09:00)
[2016-05-18] MEDS ORDERED: SODIUM CHLORIDE 0.9% 1000 ML IV ONE ×2 (09:45→10:00)
--- NOTE | 2016-05-18 10:17 | RO ---
DATE OF PROCEDURE: 05/18/2016 PREPROCEDURE DIAGNOSIS: Hypotension. POSTPROCEDURE DIAGNOSIS: Hypotension. PROCEDURE: Right internal jugular triple lumen venous catheter placement. SURGEON: Dr. Anand Ballard [employer]OWER: None. ANESTHESIA: 1% lidocaine. CONSENT: The patient was critically ill and could not provide consent at the time. She had consented for all measures to save her life in a prior conversation. The procedure was deemed emergent due to the severity of her hypotension. DESCRIPTION OF PROCEDURE: The right IJ was prepped and draped in a sterile manner with chlorhexidine and full sterile barrier precautions. A time-out was performed identifying correct site, correct procedure, with two patient identifiers. The right IJ was then identified under ultrasound and 1% lidocaine was instilled subcutaneously. The Khalida syringe was then introduced in the right IJ on the first pass. The wire was fed through the needle and the triple-lumen catheter was then placed. It was placed via modified Seldinger technique. All three ports returned venous blood flow and flushed easily. This was sutured in at 15 cm. A postprocedure chest x-ray is pending. There were no observed complications. [facility]
--- NOTE | 2016-05-18 10:46 | CCN ---
DATE: 05/18/2016 I was urgently called to the bedside this morning. Apparently the primary team had been called overnight with fevers and hypotension. 250 mL bolus was ordered. I was called to the bedside due to worsening hypotension and lactic acidosis. On my arrival, the patient was more lethargic with a systolic blood pressure of 87. Based on my review, she was intravascularly depleted despite being extravascularly volume overloaded. She was hypernatremic with an elevated lactate. Her white count had decreased to 1.8 suggesting severe sepsis. She has a blood culture that had gram-negative organisms and was started on Rocephin yesterday. However, she does have a history of MRSA and has open wounds on her lower extremities. Due to her persistent fevers in the severity of her sepsis, I added vancomycin to her regimen. She had decreased urine output. Only 10 mL over the past 2 hours. Her international normalized ratio (INR) is elevated despite not being on anticoagulation suggesting shock liver. There is no evidence of disseminated intravascular coagulation (DIC) at this point in time. Patient remains on bilevel noninvasive therapy. She will open her eyes to voice. However, she is at high risk for requiring intubation and invasive mechanical ventilation. She is unable to answer questions at this point in time. PHYSICAL EXAMINATION: Maximum temperature (Tmax) was 104, temperature now was 100.6. Blood pressure is 87/48 with a mean arterial pressure (MAP) of 65. Her oxygen saturations 91% on FiO2 of 0.60, which is increased from 0.40 yesterday. Respiratory rate is 28. Pulse is 83. General: Patient is lethargic, weak, unable to hold her arms up. She is in significant distress with bilevel in place. HEENT: Sclerae clear and anicteric. Pupils are 5 mm and reactive. Mucous membranes are moist without lesions. Oropharynx without erythema or exudate. Neck: Supple. No deviation of the trachea. Jugular venous pulse (JVP) is difficult to assess due to her body habitus. I do not palpate any thyromegaly. No cervical, supraclavicular, axillary adenopathy. Cardiac: Distant S1, S2. Regular rate and rhythm with a grade 2/6 systolic murmur that is heard best at the right second intercostal border that does not radiate. Pulmonary: Decreased chest expansion. No rhonchi or wheezes. No prolongation of the expiratory phase. Abdomen: Morbidly obese. No discernible hepatosplenomegaly. No masses, there is a large central hernia without evidence of incarceration. Abdomen is soft with hypoactive bowel sounds. Extremities: Bilateral lower extremity edema with superficial abrasions anteriorly and posteriorly minimal erythema without evidence of cellulitis. I do not see any ulcers on the feet. Skin is otherwise pale without jaundice. Laboratory evaluation shows hypernatremia with a sodium of 150, potassium 3.9, chloride of 110, bicarbonate of 33, BUN of 34. Creatinine has increased to 1.5 from 1.1. Glucose was 69 this morning, rechecked at 87. White blood cell count at 1.8, which is down from 4 yesterday. There is bandemia of 7. Lactic acid was 3.7. Repeat lactate is pending. AST is 37, ALT is 11. Total bilirubin is 1.9 from 0.9 yesterday. Albumin is 2.0. TSH was 0.59. Arterial blood gas shows a combined metabolic respiratory acidosis with pH of 7.27, 59 and a pAO2 of 76. Chest x-ray shows decreased chest expansion, some vascular congestion and cardiomegaly. 1. Septic shock. First liter of fluid finished at 1005 hours. Second liter of fluid is being administered as a bolus. She has lactic acidosis with evidence of organ hypoperfusion with decreased urine output, increasing creatinine, increasing INR suggesting shock liver, increasing FiO2 requirement with respiratory failure, hypernatremia suggesting intravascular volume depletion despite extravascular edema. She is at high risk for intubation given the severity of her illness and her musculoskeletal weakness. I have added vancomycin to her regimen of Rocephin due to her history of MRSA. Her total bilirubin is elevated along with her INR. We will continue to monitor for DIC. I do not believe she has any evidence of ascending cholangitis. We will continue to monitor total bilirubin. She has no abdominal pain at this point in time. I believe the most likely source is urine given the findings of gram-negative rods in the blood culture, white blood cell in the urinalysis, 50+ bacteria on urinalysis. She has alternative sources of sepsis including cellulitis with open wounds on her legs. We will follow sepsis bundle, repeat lactate, obtain central venous pressure monitoring through central line and SCVO2 measurement to ensure adequate cardiac output. 2. Respiratory failure. On bilevel noninvasive therapy. Desaturates with removal of the bilevel positive airway pressure (BiPAP). She is at high risk for requiring intubation and invasive mechanical ventilation, especially due to her baseline hypoventilation. 3. Leukopenia consistent with her diagnosis of sepsis. 4. Lactic acidosis. Again, likely secondary sepsis. 5. Renal insufficiency. Worsening in the face of sepsis. 6. Hypernatremia. Likely secondary to dehydration. 7. Hypoalbuminemia with protein malnourishment. 8. DVT prophylaxis. Patient is auto anticoagulated with elevated INR. We will have to monitor for increased risk of bleeding. She has a history of pulmonary embolism. She unable have thromboembolism deterrents (TEDs) and Vick's due to the severity of her lower extremity lesions. 10. GI prophylaxis. IV Protonix. Patient remains critically ill with high risk of . Critical care one hour this excludes all procedures. MTDD
--- NOTE | 2016-05-18 10:54 | REP ---
Portable chest x-ray: Single view. Time stamped 10:23 a.m. on May 18, 2016. History: Line placement. Comparison chest x-ray is from May 18, 2016 at 10:14 a.m. Findings: There is evidence of right internal jugular line extending in the right paratracheal region of the mediastinum. Its tip is not distinctly visualized. There is no visible pneumothorax. Moderate to marked cardiomegaly is observed. Pulmonary vascular congestion is seen as before. EKG electrodes are noted. Impression: Right internal jugular line noted coursing in the right paratracheal region. Tip not definitely visualized. No complications seen. Cardiomegaly and pulmonary vascular congestion. Signed by Devin Caruso MD 05/18/2016 03:03 P
[2016-05-18] MEDS ORDERED: VANCOMYCIN HCL 1,000 MG, VIAL MATE ADAPTER 1 EACH in D5W 250 ML IV SCH (11:00)
[2016-05-18] MEDS ORDERED: EPINEPHrine HCL INJ 1 MG in D5W 240 ML IV SCH (11:00)
[2016-05-18] MEDS ORDERED: NOREPINEPHRINE 4 MG/4 ML AMP As Ordered ONE (11:07)
[2016-05-18 11:22] LABS: ABG HCO3 22.2 MEQ/L (22.0-26.0); ABG PARTIAL PRESSURE CO2 58.6 mmHg (35.0-45.0); ABG PARTIAL PRESSURE O2 203.8 mmHg (75.0-100.0); ABG STANDARD HCO3 19.5 MEQ/L (22.0-26.0)
[2016-05-18 11:23] LABS: ABG pH (ARTERIAL) 7.196 UNITS (7.350-7.450)
[2016-05-18] MEDS ORDERED: MIDAZOLAM INJ 2 MG/2 ML VIAL (J2250) As Ordered ONE ×2 (11:49→11:50)
[2016-05-18] MEDS ORDERED: VANCOMYCIN HCL 750 MG, VIAL MATE ADAPTER 1 EACH in D5W 250 ML IV ONE (12:00)
[2016-05-18] MEDS ORDERED: MIDAZOLAM HCL 50 MG in D5W 40 ML IV SCH (12:00)
[2016-05-18] MEDS ORDERED: MIDAZOLAM INJ 2 MG/2 ML VIAL (J2250) IV STA (12:00)
[2016-05-18] MEDS ORDERED: NOREPINEPHRINE BITARTRATE 8 MG in D5W 500 ML IV SCH ×4 (12:00→22:00)
[2016-05-18] MEDS ORDERED: REFRIGERATOR IV KEYS XX PRN ×2 (12:00→12:45)
[2016-05-18] MEDS ORDERED: MIDAZOLAM INJ 5 MG/ML VIAL (J2250) As Ordered ONE ×3 (12:11→12:13)
--- NOTE | 2016-05-18 12:17 | IPNPDOC ---
Date Seen The patient was seen on 05/17/16. Subjective CC/HPI The patient is a 70-year-old female admitted with a reason for visit of Acute Chf. Objective General Exam: Positive: Alert, Cooperative, No Acute Distress Eye Exam: Positive: Conjunctiva & lids normal, EOMI, PERRLA, Negative: Sclera icteric ENT Exam: Positive: Atraumatic, Mucous membr. moist/pink, Pharynx Normal Neck Exam: Positive: Supple, Negative: JVD, thyromegaly Chest Exam: Positive: Diminished, Rales Heart Exam: Positive: Normal S1, Normal S2, Rate Normal, Regular Rhythm, Negative: Murmurs, Rubs Abdomen Exam: Positive: Normal bowel sounds, Soft Extremity Exam: Positive: Edema Skin Exam: Positive: Other skin issue (chronic stasis changes on both legs with red moist skin in the sepulveda and the calf at both the legs. ) Problems (1) Bacteremia Status: Acute Problem Text: gram negative rods in blood 1/2 with dirty urine machado start ceftriaxone. repeat cultures (2) Acute respiratory failure with hypercapnia Status: Acute Problem Text: due to CHF exacerbation on BIPAP (3) Acute exacerbation of CHF (congestive heart failure) Status: Acute Problem Text: has diastolic chf with preserved LV systolic function (4) Chronic respiratory failure with hypoxia Status: Chronic (5) Right heart failure Status: Chronic (6) IDDM (insulin dependent diabetes mellitus) Status: Chronic (7) Morbid obesity Status: Chronic (8) Hyperlipidemia Status: Chronic (9) Cirrhosis of liver Status: Chronic (10) Hypertension Status: Chronic (11) COPD (chronic obstructive pulmonary disease) Status: Chronic (12) PE (pulmonary embolism) Status: Resolved (13) Lymphoma in remission Status: Chronic (14) GERD (gastroesophageal reflux disease) Status: Chronic (15) Ventral hernia Status: Chronic (16) Periumbilical hernia Status: Chronic (17) Ulcers of both lower legs Status: Chronic Plan/VTE VTE Prophylaxis Ordered?: Yes Plan/Urinary Catheter Reason for insertion/continuin: Critical Pt monitoring VS, I&O, 24H, Fishbone Vital Signs Date Time Temp Pulse Resp B/P Pulse Ox O2 Delivery O2 Flow Rate FiO2 05/17/16 12:08 100.0 74 20 118/56 98 NIPPV (BIPAP/CPAP) 35 Laboratory Tests 2 05/16/16 14:15: Arterial Blood pH 7.173*L, Arterial Blood Partial Pressure CO2 86.2*H, Arterial Blood Partial Pressure O2 137.9H, Arterial Blood Total CO2 33.6H, Arterial Blood HCO3 30.9H, Arterial Blood Base Excess 0.3, Arterial Blood Oxygen Saturation 98.7, Blood Gas Bicarbonate Standard 24.8, Oxygen Delivery Device NASAL STEPHEN 05/16/16 16:16: Arterial Blood pH 7.287L, Arterial Blood Partial Pressure CO2 58.5H, Arterial Blood Partial Pressure O2 108.9H, Arterial Blood Total CO2 29.1, Arterial Blood HCO3 27.3H, Arterial Blood Base Excess -0.1, Arterial Blood Oxygen Saturation 98.2, Blood Gas Bicarbonate Standard 24.4, Oxygen Delivery Device NASAL STEPHEN 05/16/16 17:09: Urine Amorphous Sediment SMALLH, Urine Appearance CLOUDYH, Urine Color YELLOW, Urine pH 5.0, Urine Specific Outlook 1.020, Urine Protein 3+H, Urine Glucose (UA ) NEGATIVE, Urine Ketones NEGATIVE, Urine Urobilinogen 0.2, Urine Bilirubin NEGATIVE, Urine Leukocyte Esterase 1+H, Urine Bacteria (Auto) 3+H, Urine Blood 1 +H, Urine Calcium Carbonate Cryst(Auto) , Urine Calcium Oxalate Cryst (Auto) , Urine Calcium Phosphate Louise (Auto) , Urine Cellular Casts , Urine Cystine Crystals , Urine Granular Casts (Auto) , Urine Hyaline Casts (Auto) 4, Urine Leucine Crystals , Urine Mucus (Auto) SMALL, Urine Nitrite NEGATIVE, Urine Oval Fat Bodies (Auto) , Urine RBC (Auto) 11H, Urine Renal Epithelial Cells , Urine Sperm (Auto) , Urine Squamous Epithelial Cells 0, Urine Transitional Epithelial Cells , Urine Trichomonas (Auto) , Urine Triple Phosphate Cryst (Auto) , Urine Tyrosine Crystals , Urine Uric Acid Crystals (Auto) , Urine WBC (Auto) 56H, Urine Waxy Casts (Auto) , Urine Yeast-Like Cells (Auto) 05/16/16 20:10: Creatine Kinase MB 1.1, Creatine Kinase MB Relative Index 2.34, Total Creatine Kinase 47, Troponin I < 0.02 05/16/16 20:49: Bedside Glucose (Misc Panel) 201H 05/16/16 20:55: Arterial Blood pH 7.374, Arterial Blood Partial Pressure CO2 53.9H, Arterial Blood Partial Pressure O2 61.3L, Arterial Blood Total CO2 32.4H, Arterial Blood HCO3 30.7H, Arterial Blood Base Excess 4.5H, Arterial Blood Oxygen Saturation 93.2L, Blood Gas Bicarbonate Standard 28.4H 05/17/16 04:17: Blood Urea Nitrogen 23H, Creatinine 1.11H, Sodium Level 149H, Potassium Level 4.5, Chloride Level 112H, Carbon Dioxide Level 29, Calcium Level 7.9L, Aspartate Amino Transf (AST/SGOT) 22, Alanine Aminotransferase (ALT/SGPT) 12, Total Creatine Kinase 92#, Alkaline Phosphatase 90, Total Bilirubin 0.9, Total Protein 5.1L, Albumin 2.2L, Albumin/Globulin Ratio 0.76L, Anion Gap 8, Anisocytosis 1+, Atypical Lymphocytes 1, Band Neutrophils 3, Basophilic Stippling 1+, White Blood Count 4.2, Red Blood Count 2.92L, Hemoglobin 9.9L, Hematocrit 31.6L, Mean Corpuscular Volume 108.2H, Mean Corpuscular Hemoglobin 33.9H, Mean Corpuscular Hemoglobin Concent 31.3L, Red Cell Distribution Width 15.7H, Platelet Count 167, Neutrophils (%) (Auto) , Lymphocytes (%) (Auto) , Monocytes (%) (Auto) , Eosinophils (%) (Auto) , Basophils (%) (Auto) , Neutrophils # (Auto) , Lymphocytes # (Auto) , Monocytes # (Auto) , Eosinophils # (Auto) , Basophils # (Auto) , Creatine Kinase MB 1.0, Creatine Kinase MB Relative Index 1.08, Glomerular Filtration Rate 51.4, Large Unclassified Cells # , Large Unclassified Cells % , Lymphocytes (Manual) 30, Macrocytosis 2+, Magnesium Level 1.7L, Monocytes (Manual) 4, Neutrophils 62, Nucleated Red Blood Cells 1H, Platelet Estimate NORMAL, Prothromb Time International Ratio 2.47, Prothrombin Time 26.8H, Troponin I 0.02 05/17/16 09:28: Arterial Blood pH 7.394, Arterial Blood Partial Pressure CO2 47.3H, Arterial Blood Partial Pressure O2 84.4, Arterial Blood Total CO2 29.7, Arterial Blood HCO3 28.2H, Arterial Blood Base Excess 2.8H, Arterial Blood Oxygen Saturation 96.7, Blood Gas Bicarbonate Standard 27.0H 05/17/16 11:29: Bedside Glucose (Misc Panel) 172H 05/17/16 11:52: Creatine Kinase MB 1.0, Creatine Kinase MB Relative Index 0.89, Thyroid Stimulating Hormone (TSH) 0.590, Total Creatine Kinase 112, Troponin I 0.03# Laboratory Tests 05/17/16 04:17 Calcium Level 7.9 L, Aspartate Amino Transf (AST/SGOT) 22, Alanine Aminotransferase (ALT/SGPT) 12, Total Creatine Kinase 92 #, Alkaline Phosphatase 90, Total Bilirubin 0.9, Total Protein 5.1 L, Albumin 2.2 L, Red Blood Count 2.92 L, Mean Corpuscular Volume 108.2 H, Mean Corpuscular Hemoglobin 33.9 H, Mean Corpuscular Hemoglobin Concent 31.3 L, Red Cell Distribution Width 15.7 H, Neutrophils (%) (Auto) , Lymphocytes (%) (Auto) , Monocytes (%) (Auto) , Eosinophils (%) (Auto) , Basophils (%) (Auto) , Neutrophils # (Auto) , Lymphocytes # (Auto) , Monocytes # (Auto) , Eosinophils # (Auto) , Basophils # (Auto) Microbiology 05/16/16 Blood Culture - Preliminary, Resulted No growth after 24 hours . All specim... 05/16/16 Blood Culture - Preliminary, Resulted 05/17/16 MRSA Screen, Received Pending 05/16/16 Influenza Virus Type A Antigen - Final, Complete 05/16/16 Influenza Virus Type B Antigen - Final, Complete 05/16/16 Urine Culture, Received Pending SRAVAN HUTCHINSON MD May 17, 2016 14:03
--- NOTE | 2016-05-18 12:47 | IPNPDOC ---
Subjective General Date Seen The patient was seen on 05/18/16. Chief Complaint/HPI The patient is a 70-year-old female admitted with a reason for visit of Acute Chf. Subjective Events since last encounter patient was spiking fever from yesterday afternoon with t max of 104, was hypoglycemic this am and very lethargic even with improved blood sugars, also with elevated lactate became hypotensive later in the morning . So central line and arterial lines were placed. patient also went into respiratory arrest and had a brief cpr. Objective Physical Examination General Exam: Positive: Other (lethargic) Eye Exam: Positive: Conjunctiva & lids normal, EOMI, PERRLA, Negative: Sclera icteric ENT Exam: Positive: Atraumatic, Mucous membr. moist/pink, Pharynx Normal Neck Exam: Positive: Supple, Negative: JVD, thyromegaly Chest Exam: Positive: Diminished, Rales Heart Exam: Positive: Normal S1, Normal S2, Regular Rhythm, Tachycardic, Negative: Murmurs, Rubs Telemetry: Positive: No significant arrhythmia Abdomen Exam: Positive: Normal bowel sounds, Soft Extremity Exam: Positive: Edema Skin Exam: Positive: Other skin issue (chronic stasis changes on both legs with red moist skin in the sepulveda and the calf at both the legs. ) Assessment /Plan Problems Problems: (1) Respiratory arrest before cardiac arrest Status: Acute Problem Text: patient was intubated and did require brief period of cpr . due to severe acidosis from septic shock and respiratory failure (2) Septic shock Status: Acute Problem Text: source of infection either urine or skin blood cultures 3/4 bottles with gram negative rods. will continue with ceftriaxone and vancomycin ivf resuscitation may require vasopresors . (3) Bacteremia Status: Acute Problem Text: gram negative rods in blood 1/2 with dirty urine machado start ceftriaxone. repeat cultures (4) Acute respiratory failure with hypercapnia Status: Acute Problem Text: due to CHF exacerbation on BIPAP (5) Acute exacerbation of CHF (congestive heart failure) Status: Acute Problem Text: has diastolic chf with preserved LV systolic function (6) Chronic respiratory failure with hypoxia Status: Chronic (7) Right heart failure Status: Chronic (8) IDDM (insulin dependent diabetes mellitus) Status: Chronic (9) Morbid obesity Status: Chronic (10) Hyperlipidemia Status: Chronic (11) Cirrhosis of liver Status: Chronic (12) Hypertension Status: Chronic (13) COPD (chronic obstructive pulmonary disease) Status: Chronic (14) PE (pulmonary embolism) Status: Resolved (15) Lymphoma in remission Status: Chronic (16) GERD (gastroesophageal reflux disease) Status: Chronic (17) Ventral hernia Status: Chronic (18) Periumbilical hernia Status: Chronic (19) Ulcers of both lower legs Status: Chronic (20) Coagulopathy Status: Acute Problem Text: elevated INR though not on coumadin will hold xarelto. Plan/VTE VTE Prophylaxis Ordered?: Yes Plan/Urinary Catheter Reason for insertion/continuin: Critical Pt monitoring VS, I&O, 24H, Fishbone Vital Signs/I&O Vital Signs Date Time Temp Pulse Resp B/P Pulse Ox O2 Delivery O2 Flow Rate FiO2 05/18/16 10:50 94 22 97 95 05/18/16 09:00 87/48 05/18/16 06:12 100.6 NIPPV (BIPAP/CPAP) I&O- Last 24 Hours up to 6 AM 05/18/16 05:59 Intake Total 530 ml Output Total 3100 ml Balance -2570 ml Laboratory Data 24H LABS Laboratory Tests 2 05/17/16 16:27: Prothromb Time International Ratio 5.31*H, Prothrombin Time 48.5H 05/17/16 17:36: Bedside Glucose (Misc Panel) 151H 05/17/16 21:36: Bedside Glucose (Misc Panel) 122H 05/18/16 04:33: Lactic Acid (Sepsis) 3.7*H 05/18/16 04:34: Blood Urea Nitrogen 34H, Creatinine 1.50H, Sodium Level 150H, Potassium Level 3.9, Chloride Level 110H, Carbon Dioxide Level 33H, Calcium Level 8.3L, Aspartate Amino Transf (AST/SGOT) 37, Alanine Aminotransferase (ALT/SGPT) 11L, Alkaline Phosphatase 93, Total Bilirubin 1.9#H, Total Protein 5.0L, Albumin 2.0L , Albumin/Globulin Ratio 0.67L, Anion Gap 7L, Anisocytosis 1+, Band Neutrophils 7, Basophilic Stippling 2+, White Blood Count 1.8L, Corrected White Blood Count 1.6, Red Blood Count 3.11L, Hemoglobin 10.4L, Hematocrit 33.4L, Mean Corpuscular Volume 107.5H, Mean Corpuscular Hemoglobin 33.5H, Mean Corpuscular Hemoglobin Concent 31.2L, Red Cell Distribution Width 16.0H, Platelet Count 115L , Neutrophils (%) (Auto) , Lymphocytes (%) (Auto) , Monocytes (%) (Auto) , Eosinophils (%) (Auto) , Basophils (%) (Auto) , Neutrophils # (Auto) , Lymphocytes # (Auto) , Monocytes # (Auto) , Eosinophils # (Auto) , Basophils # ( Auto) , Glomerular Filtration Rate 36.3L, [place] Bodies 1+, Hypochromasia 1+, Large Unclassified Cells # , Large Unclassified Cells % , Lymphocytes ( Manual) 25, Macrocytosis 2+, Magnesium Level 1.8, Metamyelocytes 3H, Monocytes ( Manual) 2, Myelocytes 1H, Neutrophils 62, Nucleated Red Blood Cells 14H, Platelet Estimate DECREASED, Prothromb Time International Ratio 4.22, Prothrombin Time 40.6H 05/18/16 05:47: Bedside Glucose (Misc Panel) 58L 05/18/16 06:02: Arterial Blood pH 7.269L, Arterial Blood Partial Pressure CO2 59.4H, Arterial Blood Partial Pressure O2 76.4, Arterial Blood Total CO2 28.4, Arterial Blood HCO3 26.6H, Arterial Blood Base Excess -0.9, Arterial Blood Oxygen Saturation 93.6L, Blood Gas Bicarbonate Standard 23.6 05/18/16 06:05: Bedside Glucose (Misc Panel) 152H 05/18/16 07:44: Bedside Glucose (Misc Panel) 63L 05/18/16 07:45: Bedside Glucose (Misc Panel) 63L 05/18/16 08:50: Bedside Glucose (Misc Panel) 87 05/18/16 09:56: Lactic Acid (Sepsis) 3.0*H 05/18/16 10:30: Central Line Venous O2 Saturation 99.5 05/18/16 11:16: Arterial Blood pH 7.196*L, Arterial Blood Partial Pressure CO2 58.6H, Arterial Blood Partial Pressure O2 203.8H, Arterial Blood Total CO2 24.0, Arterial Blood HCO3 22.2, Arterial Blood Base Excess -6.0L, Arterial Blood Oxygen Saturation 99.7H, Blood Gas Bicarbonate Standard 19.5L CBC/BMP Laboratory Tests 05/18/16 04:34 Calcium Level 8.3 L, Aspartate Amino Transf (AST/SGOT) 37, Alanine Aminotransferase (ALT/SGPT) 11 L, Alkaline Phosphatase 93, Total Bilirubin 1.9 # H, Total Protein 5.0 L, Albumin 2.0 L, Corrected White Blood Count 1.6, Red Blood Count 3.11 L, Mean Corpuscular Volume 107.5 H, Mean Corpuscular Hemoglobin 33.5 H, Mean Corpuscular Hemoglobin Concent 31.2 L, Red Cell Distribution Width 16.0 H, Neutrophils (%) (Auto) , Lymphocytes (%) (Auto) , Monocytes (%) (Auto) , Eosinophils (%) (Auto) , Basophils (%) (Auto) , Neutrophils # (Auto) , Lymphocytes # (Auto) , Monocytes # (Auto) , Eosinophils # (Auto) , Basophils # (Auto) Microbiology Microbiology 05/17/16 Blood Culture - Preliminary, Resulted 05/17/16 Blood Culture - Preliminary, Resulted 05/16/16 Blood Culture - Preliminary, Resulted No growth after 24 hours . All specim... 05/16/16 Blood Culture - Preliminary, Resulted 05/17/16 MRSA Screen - Final, Complete 05/16/16 Influenza Virus Type A Antigen - Final, Complete 05/16/16 Influenza Virus Type B Antigen - Final, Complete 05/16/16 Urine Culture, Received Pending SRAVAN HUTCHINSON MD May 18, 2016 12:47
[2016-05-18] MEDS ORDERED: VASOPRESSIN INJ 20 UNITS/ML VIAL As Ordered ONE (12:53)
--- NOTE | 2016-05-18 12:57 | RO ---
DATE OF PROCEDURE: 05/18/2016 PREOPERATIVE DIAGNOSIS: Respiratory arrest, unresponsiveness. POSTOPERATIVE DIAGNOSIS: Respiratory arrest, unresponsiveness. PROCEDURE: Endotracheal intubation. SURGEON: Anand Ballard DO PART TIME FLEXIBLE CLERK: No assistants. ANESTHESIA: No anesthesia initiated. DESCRIPTION OF PROCEDURE: Patient was FULL CODE and intubation deemed emergent. I was called emergently to the patient's bedside due to unresponsiveness. She had obvious oxygen desaturation and was becoming bradycardic. I therefore intubated her at bedside with an 8.0 endotracheal tube , 22 at the lip. It was grade 2 view of the posterior pharynx with a significant amount of mucus, and placement was confirmed with direct visualization and tidal CO2 monitoring and auscultation. Chest x-ray is pending. Oxygen saturations improved. Patient had pulseless electrical activity (PEA) arrest and therefore cardiopulmonary resuscitation (CPR) was initiated. Please refer to critical care note for further details. JANNET
[2016-05-18] MEDS ORDERED: VASOPRESSIN INJ 20 UNITS in NS 500 ML IV SCH ×2 (13:00→21:00)
[2016-05-18 13:01] LABS: ABG BASE EXCESS -11.7 (-2.0-2.0); ABG HCO3 18.5 MEQ/L (22.0-26.0); ABG PARTIAL PRESSURE O2 77.2 mmHg (75.0-100.0); ABG TOTAL CO2 20.6 MEQ/L (23.0-31.0)
[2016-05-18 13:02] LABS: ABG pH (ARTERIAL) 7.051 UNITS (7.350-7.450)
[2016-05-18 13:03] LABS: ABG PARTIAL PRESSURE CO2 68.4 mmHg (35.0-45.0)
--- NOTE | 2016-05-18 13:23 | RO ---
DATE OF PROCEDURE: 05/18/2016 PREOPERATIVE DIAGNOSIS: Lactic acidosis. POSTOPERATIVE DIAGNOSIS: Lactic acidosis. PROCEDURE: Right radial arterial line after multiple femoral attempts. SURGEON: Anand Ballard DO CLERICAL ADVISER: None ANESTHESIA: Patient unresponsive CONSENT: Deemed urgent due to hypotension, recent code, therefore was placed in an emergency. DESCRIPTION OF PROCEDURE: The right radial arterial line was prepped and draped in a sterile manner with chlorhexidine and full barrier precaution. The Shaw's test was normal. There was a small thready pulse being took. A syringe was then introduced into the artery with return of pulsatile arterial blood flow. The wire was then thread through the needle and the catheter was placed via modified Seldinger technique. The wire was removed and the catheter was attached to the arterial waveform showing an adequate waveform with a low systolic pressure ranging 50-68. This was sutured in place and a sterile impregnated dressing was placed over the site. Later, I was able to obtain a noninvasive pressure which correlated with this hypotension. JANNET
[2016-05-18] MEDS ORDERED: EPINEPHrine HCL INJ 4 MG in D5W 960 ML IV SCH ×5 (13:30→16:30)
[2016-05-18] MEDS: NYSTATIN 100,000 UNITS/GM TOPICAL PWD 15 GM TOP SCH (13:31)
[2016-05-18] MEDS: cefTRIAXone SOD 1 GM in D5W MINI-BAG PLUS 50 ML IV SCH (14:00)
--- NOTE | 2016-05-18 14:04 | CCN ---
DATE: 05/18/2016 This is the second critical care note of the day. I was called to the patient's bedside for unresponsiveness. Critical care time was an additional hour to the hour that was already spent today, totalling 2 hours of critical care on this date. This excludes all procedures. On my arrival, the patient was unresponsive. She had evidence of hypoxia. Therefore, I bag mask valved the patient and intubated the patient. The patient was bradycardic and went into cardiopulmonary arrest. PEA was on telemetry. 1 mg of epinephrine was administered followed by a short episode of chest compressions. Calcium gluconate was also given during the code. There was spontaneous return of pulse. Shortly after there was a brief short run of ventricular tachycardia (V-tach) that stopped prior to defibrillation. Therefore, no defibrillation was performed. The patient continued to have severe hypotension. Eventually, I added three pressors and placed a radial arterial line. I gave two amps of bicarb during resuscitation as she was not responding well to vasopressive therapy. I felt that this was secondary to the severity of her acidosis and Bicarb was used as a temporizing measure. The patient was placed on mechanical ventilation with a tidal volume of 450, respiratory rate of 20. Oxygenation was adequate on repeat arterial blood gas; however, showed severe metabolic acidosis. The patient continues to have poor urine output, worsening hypotension and worsening septic shock. I was continuously at the bedside to treat her severe acidosis and septic shock. JANNET
--- NOTE | 2016-05-18 14:46 | REP ---
Portable chest x-ray: Sitting AP view. 10:14 a.m. film. History: Hypoxia. Sepsis. Status post central line. Comparison study 6:11 a.m. on this same date. Findings: EKG monitoring electrodes overlie the chest. Moderate cardiomegaly is again observed unchanged. The aorta is calcific as before. Pulmonary vasculature is cephalized and somewhat congested in appearance. Hazy opacity is seen at the bases consistent with some degree of pleural fluid. There appears to be a right internal jugular central line although its tip cannot be confidently identified. Signed by Devin Caruso MD 05/18/2016 03:06 P
[2016-05-18 14:51] LABS: INR 5.89
[2016-05-18] MEDS ORDERED: MORPHINE 2 MG/ML 1ML SYRINGE IV PRN (15:00)
--- NOTE | 2016-05-18 15:01 | REP ---
Portable chest x-ray: May 18, 2016, 1326 hour film. History: Respiratory arrest. Comparison chest x-ray is from 10:23 a.m. on this date. Findings: An endotracheal tube has been inserted into good position at the level of the proximal clavicles. A right internal jugular line is seen with its tip in the expected location of the superior vena cava. EKG monitoring electrodes overlie the chest. Moderate cardiomegaly is observed. Pulmonary vasculature is cephalized and more congested with a mild interstitial edema pattern. This is most pronounced in the upper lobes. No other significant finding. Signed by Devin Caruso MD 05/18/2016 03:06 P
[2016-05-18] MEDS ORDERED: CALCIUM CHLORIDE 10% 1 GM/10 ML SYR ONE (15:09)
[2016-05-18] MEDS ORDERED: SODIUM BICARBONATE 8.4% INJ 50 ML SYRINGE ONE (15:09)
[2016-05-18] MEDS ORDERED: EPINEPHrine 1MG/10ML SYRINGE 1.5IN ONE (15:09)
--- NOTE | 2016-05-18 15:54 | ECGEPIP ---
Stationary ECG Study [facility] Test Date: 2016-05-18 Pat Name: ANTHONY KINGSLEY Department: ICU Room: [place] [address] Gender: F Ware Tester: : 1945 Requested By: TEMI Wolf Order Number: [id number] Reading MD: Reina Brown Measurements Intervals [place] Rate: 82 P: 49 RI: 164 QRS: -4 QRSD: 113 T: 66 QT: 360 QTc: 421 Interpretive Statements SINUS RHYTHM WITH FREQUENT SUPRAVENTRICULAR PREMATURE COMPLEXES/COUPLET MODERATE INTRAVENTRICULAR CONDUCTION DELAY NONSPECIFIC T-WAVE ABNORMALITY ABNORMAL RHYTHM ECG SIMILAR TO 05/16/15 Electronically Signed On 05-18-2016 15:54:11 EST by Reina Brown
--- NOTE | 2016-05-18 20:10 | DSES ---
DATE OF ADMISSION: 05/16/2016 DATE OF EXPIRATION: 05/18/2016 ATTENDING PHYSICIAN: Dr. Joyce Farfan CONSULTING PHYSICIAN: Dr. Anand Ballard DISCHARGE DIAGNOSES: 1. Septic shock. 2. Gram-negative bacteremia. 3. Congestive heart failure (CHF). 4. Urinary tract infection. 5. Possible skin infection. 6. Acute hypoxic and hypercarbic respiratory failure. 7. Lactic acidosis. 8. Acute kidney failure 9. Leukopenia. 10. Thrombocytopenia. 11. Anemia. 12. Supratherapeutic INR. 13. Elevated bilirubin. 14. History of insulin-dependent diabetes 15. History of hyperlipidemia. 16. History of hypertension. 17. History of pulmonary embolism. 18. History of gastroesophageal reflux disease. 19. History of lymphoma, in remission. 20. Ventral abdominal wall hernia. 21. Superficial ulcerations of the lower extremity. 22. History of right heart failure. 23. Hypernatremia. 24. Hypoalbuminemia with protein malnourishment BRIEF HOSPITAL COURSE: The patient originally presented with significant shortness of breath on May 16 with imaging findings showing cardiomegaly with vascular congestion, interstitial alveolar edema, and bilateral effusions. The patient had an arterial blood gas (ABG) drawn, which revealed a pH of 7.17 , CO2 of 86.2. With her acute hypoxic and hypercarbic respiratory failure, noninvasive mechanical ventilation with bilevel positive airway pressure (BiPAP ) was initiated. She was also initiated on intravenous (IV) Lasix for pulmonary edema/congestive heart failure (CHF) exacerbation and admitted into the hospital. The patient had a urinalysis on admission, which showed cloudy appearance, 3+ protein, 1+ blood, 1+ leukocyte esterase, 56 WBC, 11 RBC, 3+ bacteria. Subsequent urine cultures still pending. The patient did not have any fevers on admission, however, overnight had developed fevers. Lactic acid level was elevated. She became more leukopenic and became more hypotensive. She was initiated on antibiotics, that being ceftriaxone. Given her history of methicillin-resistant Staphylococcus aureus (MRSA), vancomycin was added on the morning of May 18. That same morning, she became more hypotensive and received several fluid boluses. She appeared more lethargic and urinary output had decreased. Shortly thereafter, she became more unresponsive with increasing hypoxia; therefore she was bag masked and then intubated. She became bradycardic and went into pulmonary/cardiac arrest. 1 mg of epinephrine was administered followed by a short duration of chest compressions. There was spontaneous return of her pulse. She did have a brief run of ventricular tachycardia that ceased prior to defibrillation; therefore no defibrillation was performed. During resuscitation, she also received calcium and later received sodium bicarbonate. Given her severe hypotension, she needed three pressors to maintain her blood pressures. There were several attempts for a femoral line, and eventually a radial arterial line was placed. As resuscitative efforts were being done, the patient's family was contacted. The patient's family members were under the impression that she was DO NOT RESUSCITATE. It was documented that the patient was full code and that her DO NOT RESUSCITATE had been rescinded back in 2014. Upon their arrival, they felt that the patient would not have wanted to be on a ventilator. Her only son made the decision to extubate her based on what he believed to be her wishes. The patient succumbed to her multiple issues shortly after extubation. Date of expiration was 2016. Time was 3:09 p.m. LABORATORY DATA: Upon discharge, WBC 1.8, hemoglobin 10.4, hematocrit 33.4, platelet count 115. Sodium 150, potassium 3.9, chloride 110, carbon dioxide 33, anion gap 7, BUN 34 , creatinine 1.5, GFR 36.3, fasting glucose 69, lactic acid 10.7, calcium 8.3, magnesium 1.8. Total bilirubin 1.9, AST 37, ALT 11, alkaline phosphatase 93, total protein 5.0, albumin 2.0. ABG showed a pH of 7.051, CO2 of 68.4, pO2 77.2, HCO3 of 18.5, total CO2 of 20.6 , oxygen saturation 91.3. PT 52.6, INR 5.89. Microbiology: Three of the four sets of blood cultures started growing gram- negative rods. Urine culture still pending. MRSA screen was negative. PROCEDURES DURING HOSPITALIZATION: 1. Right internal jugular central line. 2. Endotracheal intubation. 3. Right radial artery line, multiple femoral attempts bilaterally. PHYSICAL EXAMINATION: Revealed pale-appearing elderly female. Pupils are dilated bilaterally. Mucosa is dry. She is without a pulse and no breath sounds. Abdomen is obese but soft. Extremities are with bilateral lower extremity edema with chronic lymphedema and mottling of the skin. DISPOSITION: The patient was in critical condition secondary to septic shock with gram-negative bacteremia, decreased urinary output, findings suggesting shock liver, acute respiratory failure, intravascular depletion, hypotension, increased lactic acidosis. Status post cardiac arrest with brief ventricular tachycardia and pulseless electrical activity. She was initially intubated; however, family was under the impression that she was DO NOT RESUSCITATE. They stated that she would not have wanted these life saving measures and would not want to be on a ventilator; therefore, she was withdrawn from the ventilator and succumbed to her multiple critical issues. TIME SPENT ON DISCHARGE: Greater than 1 hour. My preceptor for this patient encounter was Dr. Anand Ballard. The preceptor was physically present in the room during the encounter and was fully available as needed. All aspects of the patient interview, examination, medical decision making process, and medical care plan development were reviewed and approved by the preceptor. The preceptor is aware and concurs with the plan as stated in the body of this note and will attest to such by his/her co-signature. edited: 05/20/2016 1501 derrell POWER
[2016-05-18] MEDS ORDERED: LEVEMIR (INSULIN DETEMIR) 1 UNITS/0.01ML SC SCH (21:00)
[2016-05-19] MEDS ORDERED: MIDAZOLAM HCL 100 MG in D5W 80 ML IV SCH ×2
[2016-05-19] MEDS ORDERED: VASOPRESSIN INJ 20 UNITS in NS 500 ML IV SCH (01:00)
--- NOTE | 2016-05-19 08:45 | EDDOCDS ---
Physician Documentation [facility] Name: Carole Lopez Age: 70 yrs Sex: Female : 1945 Arrival Date: 05/16/2016 Time: 12:59 Bed Admit Hold Private MD: Disposition: 05/16/16 16:17 Hospitalization ordered by Sheree Salinas for Inpatient Admission. Preliminary diagnosis are Acute respiratory failure, Acute systolic (congestive) heart failure. - Bed requested for M ICU. - Status is Inpatient Admission. kcs - Condition is Stable. - Problem is new. - Symptoms are unchanged. Historical: - Allergies: codeine; Latex; metal; Percocet; Ramipril; SULFA (SULFONAMIDES) (Hives); Tape; - Home Meds: 1. portable oxygen 2. Norvasc 5 mg Oral tab 1 tab once daily 3. furosemide 40 mg Oral tab 2 tabs once daily 2 tabs every morning, one tab in afternoon 4. spironolactone 25 mg Oral tab 1 tab once daily 5. Travatan Z 0.004 % ophthalmic drop 1 drop once daily 6. Calcium + Vitamin D 600 mg calcium- 200 unit Oral tab daily 7. 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 - Exposure Risk Screening:: None identified. Vital Signs: 05/16 13:17 Resp 44; Pulse Ox 69% on R/A; hs1 13:17 BP 177 / 88; Pulse 96; Resp 44; Pulse Ox 99% on 15% Non-rebreather mask; Weight 133.36 hs1 kg / 294.01 lbs; Height 5 ft. 3 in. (160.02 cm); Pain 0/10; 13:39 BP 184 / 81 (auto/); kas2 13:39 Pulse 88 MON; Pulse Ox 100% ; kas2 13:51 BP 199 / 82 (auto/); rs3 13:51 Pulse 89 MON; Pulse Ox 94% ; rs3 13:58 Temp 97.7(O); rs3 14:14 Pulse 83 MON; Pulse Ox 98% ; rs3 14:15 BP 185 / 75 (auto/); rs3 14:15 Pulse 84 MON; Pulse Ox 97% ; rs3 14:30 Pulse 81 MON; Pulse Ox 99% ; kas2 14:45 BP 171 / 71 (auto/); rs3 14:46 Pulse 78 MON; Pulse Ox 99% ; rs3 15:00 BP 189 / 74 (auto/); rs3 15:01 Pulse 77 MON; Pulse Ox 99% ; rs3 15:18 BP 148 / 65 (auto/); rs3 15:20 Pulse 80 MON; Pulse Ox 98% ; rs3 15:30 BP 146 / 61 (auto/); rs3 15:30 Pulse 81 MON; Resp 20; Pulse Ox 99% ; rs3 15:37 Pulse 72 MON; Pulse Ox 97% ; rs3 15:45 BP 141 / 61 (auto/); rs3 16:00 BP 141 / 62 (auto/); rs3 16:00 Pulse 65 MON; Pulse Ox 98% ; rs3 16:15 BP 146 / 66 (auto/); rs3 16:15 Pulse 61 MON; Pulse Ox 99% ; rs3 16:30 BP 152 / 63 (auto/); rs3 16:30 Pulse 67 MON; Pulse Ox 98% ; rs3 16:53 BP 168 / 92 (auto/); kas2 16:53 Pulse 70 MON; Pulse Ox 97% ; kas2 16:57 BP 152 / 65 (auto/); rs3 16:57 Pulse 61 MON; Pulse Ox 97% ; rs3 17:00 BP 159 / 67 (auto/); rs3 17:00 Pulse 71 MON; Pulse Ox 98% ; rs3 17:15 BP 157 / 62 (auto/); rs3 17:15 Pulse 70 MON; Pulse Ox 99% ; rs3 17:30 BP 143 / 63 (auto/); rs3 17:30 Pulse 70 MON; Pulse Ox 98% ; rs3 17:45 BP 147 / 60 (auto/); rs3 17:45 Pulse 72 MON; Pulse Ox 99% ; rs3 18:00 BP 133 / 56 (auto/); rs3 18:00 Pulse 80 MON; Pulse Ox 96% ; rs3 18:30 BP 122 / 78 (auto/); rs3 18:30 Pulse 74 MON; Pulse Ox 96% ; rs3 18:44 Pulse 75 MON; Pulse Ox 96% ; rs3 18:45 BP 134 / 74 (auto/); kas2 18:45 Pulse 76 MON; Pulse Ox 95% ; kas2 19:00 BP 150 / 87 (auto/); kas2 19:00 Pulse 77 MON; Pulse Ox 97% ; kas2 19:15 BP 156 / 60 (auto/); kas2 19:15 Pulse 76 MON; Pulse Ox 97% ; kas2 19:43 BP 163 / 95 (auto/); kas2 19:43 Pulse 77 MON; Pulse Ox 96% ; kas2 19:45 BP 161 / 69 (auto/); kas2 19:45 Pulse 78 MON; Pulse Ox 97% ; kas2 20:00 BP 161 / 65 (auto/); kas2 20:00 Pulse 78 MON; Pulse Ox 96% ; kas2 20:18 BP 129 / 59 (auto/); kas2 20:18 Pulse 78 MON; Pulse Ox 96% ; kas2 20:30 BP 147 / 58 (auto/); kas2 20:30 Pulse 82 MON; Pulse Ox 95% ; kas2 20:45 BP 175 / 68 (auto/); kas2 20:45 Pulse 77 MON; Pulse Ox 96% ; kas2 21:00 Resp 20; Temp 98.0(O); Pain 0/10; kas2 21:06 BP 152 / 57 (auto/); kas2 21:06 Pulse 109 MON; Pulse Ox 90% ; kas2 21:15 BP 158 / 65 (auto/); kas2 21:15 Pulse Ox 91% ; kas2 21:30 BP 165 / 66 (auto/); kas2 21:30 Pulse Ox 91% ; kas2 21:45 BP 167 / 66 (auto/); kas2 21:45 Pulse Ox 91% ; kas2 22:15 BP 98 / 47 (auto/); kas2 22:15 Pulse Ox 90% ; kas2 22:20 BP 176 / 70 (auto/); kas2 22:20 Pulse Ox 90% ; kas2 22:30 BP 189 / 76 (auto/); kas2 22:30 Pulse 77 MON; Pulse Ox 93% ; kas2 22:45 BP 134 / 65 (auto/); kas2 22:45 Pulse 73 MON; Pulse Ox 95% ; kas2 23:00 BP 150 / 72 (auto/); kas2 23:00 Pulse 72 MON; kas2 23:15 BP 171 / 68 (auto/); kas2 23:15 Pulse 74 MON; Pulse Ox 96% ; kas2 23:30 BP 143 / 65 (auto/); kas2 23:30 Pulse 75 MON; Pulse Ox 96% ; kas2 23:36 Resp 18; Temp 97.8(O); kas2 02/07 00:00 BP 124 / 88 (auto/); kas2 00:00 Pulse 79 MON; kas2 00:15 BP 154 / 58 (auto/); kas2 00:15 Pulse 78 MON; kas2 00:30 BP 170 / 80 (auto/); kas2 00:30 Pulse 76 MON; Pulse Ox 97% ; kas2 00:45 BP 139 / 53 (auto/); kas2 00:45 Pulse 84 MON; Pulse Ox 96% ; kas2 01:15 BP 147 / 60 (auto/); kas2 01:15 Pulse 78 MON; Pulse Ox 96% ; kas2 01:45 Resp 18; Temp 97.9; kas2 02:07 BP 184 / 75 (auto/); kas2 02:07 Pulse 80 MON; Pulse Ox 97% ; kas2 02:35 BP 162 / 74; Pulse 76; Resp 18; Temp 98.1(O); Pain 0/10; kas2 03:45 BP 134 / 51 (auto/); kas2 03:45 Pulse 78 MON; Pulse Ox 97% ; kas2 04:00 BP 143 / 59 (auto/); kas2 04:00 Pulse 79 MON; Pulse Ox 97% ; kas2 04:30 BP 117 / 54 (auto/); kas2 04:30 Pulse 82 MON; Pulse Ox 98% ; kas2 04:45 BP 119 / 52 (auto/); kas2 04:45 Pulse 82 MON; Pulse Ox 97% ; kas2 05:00 BP 107 / 51 (auto/); kas2 05:00 Pulse 82 MON; Pulse Ox 98% ; kas2 05:15 BP 123 / 53 (auto/); kas2 05:15 Pulse 79 MON; Pulse Ox 95% ; kas2 05:30 BP 112 / 52 (auto/); kas2 05:30 Pulse 73 MON; Pulse Ox 95% ; kas2 05:32 Resp 20; Temp 100.1(TE); kas2 05:45 BP 116 / 53 (auto/); kas2 05:45 Pulse 80 MON; Pulse Ox 95% ; kas2 06:00 BP 121 / 53 (auto/); kas2 06:00 Pulse 77 MON; Pulse Ox 95% ; kas2 06:15 BP 122 / 53 (auto/); kas2 06:15 Pulse 73 MON; Pulse Ox 95% ; kas2 06:26 Temp 98.6; luis e 06:39 BP 121 / 56 (auto/); kas2 06:39 Pulse 80 MON; Pulse Ox 96% ; kas2 06:44 Resp 20; kas2 05/16 13:17 Body Mass Index 52.08 (133.36 kg, 160.02 cm) hs1 MDM: 05/16 13:08 Gas Singer/Pulse Ox/q 30 min VS ordered. br1 13:08 IV Saline Lock ordered. br1 13:08 Rhythm Strip to chart ordered. br1 13:08 Undress patient appropriately for examination ordered. br1 13:09 B-Type Natiuretic Peptide Ordered. EDMS 13:09 Basic Metabolic Profile Ordered. EDMS 13:09 CBC with Diff Ordered. EDMS 13:09 Cardiac Injury Profile Ordered. EDMS 13:09 Troponin Ordered. EDMS 13:09 portable chest Ordered. EDMS 13:09 ECG WITH READING ER PHYS+CARDIAG ordered. EDMS 13:24 Oral Temp ordered. br1 13:24 -Blood Culture (Adults Only), peripheral from different site, or from device/port/PICC br1 etc. if present ordered. 13:24 Albuterol-Ipratropium 3 ml Inhalation once ordered. br1 13:24 Call Respiratory ordered. br1 13:25 Lactic Acid (Pichardo tube on ice) Ordered. EDMS 13:25 -Influenza A&B Rapid Antigen - Nose Ordered. EDMS 13:25 -Blood Culture Ordered. EDMS 13:25 -Arterial Blood Gas Ordered. EDMS 13:25 D-Dimer Quant Ordered. EDMS 13:25 Oxygen at 4L/Min NC or Home dosage ordered. br1 13:55 -Blood Culture (Adults Only), peripheral from different site, or from device/port/PICC deg etc. if present complete. 13:55 Call Respiratory complete. deg 13:56 BLOOD CULTURES Ordered. EDMS 14:23 D-Dimer Quant Reviewed. br1 14:23 -Influenza A&B Rapid Antigen - Nose Reviewed. br1 14:24 Ultrasound Bilateral LE R/O DVT Ordered. EDMS 14:38 Basic Metabolic Profile Reviewed. br1 14:38 -Arterial Blood Gas Reviewed. br1 14:38 Cardiac Injury Profile Reviewed. br1 14:38 Troponin Reviewed. br1 14:38 Lactic Acid (Pichardo tube on ice) Reviewed. br1 14:44 CT Chest Angio R/O PE Ordered. EDMS 14:46 RBC MORPH PROF NO CHARGE Ordered. EDMS 14:57 Furosemide 40 mg IVP once ordered. br1 14:57 CBC with Diff Reviewed. br1 15:20 Beard ordered. br1 15:24 BIPAP INPATIENT+RESP-VENT ordered. EDMS 15:24 BED REQUEST+ADM ordered. EDMS 16:06 -Arterial Blood Gas Ordered. EDMS 16:36 Admission / Observation Status ordered. EDMS 16:37 CARDIAC INJURY PROFILE Ordered. EDMS 16:37 TROPONIN Ordered. EDMS 16:37 URINALYSIS Ordered. EDMS 16:37 URINE CULTURE Ordered. EDMS 16:51 PROTHROMBIN TIME PROFILE\E\INR Ordered. EDMS 16:58 ECHOCARD,DOPPLER/COLOR FLOW ordered. EDMS 18:05 ARTERIAL BLOOD GAS Ordered. EDMS 18:05 BIPAP INPATIENT ordered. EDMS 18:05 PORTABLE CHEST X-RAY Ordered. EDMS 18:06 PORTABLE CHEST X-RAY Ordered. EDMS 18:06 PORTABLE CHEST X-RAY Ordered. EDMS 18:37 Financial registration complete. gjb 18:44 [facility] Payment Agreement was scanned into [employer] and attached to record. gjb 19:32 CARDIAC INJURY PROFILE Ordered. EDMS 19:32 CARDIAC INJURY PROFILE Ordered. EDMS 19:32 TROPONIN Ordered. EDMS 19:32 TROPONIN Ordered. EDMS 19:32 PROTHROMBIN TIME PROFILE\E\INR Ordered. EDMS 19:32 CBC WITH DIFFERENTIAL Ordered. EDMS 19:33 ARTERIAL BLOOD GAS Ordered. EDMS 21:13 Fingerstick Blood Sugar Ordered. EDMS 02/ 04:23 COMPLETE COMPHRENSIVE METABOLI Ordered. EDMS 04:23 MAGNESIUM LEVEL Ordered. EDMS 04:31 DIFFERENTIAL NO CHARGE Ordered. EDMS 04:31 PLATELET ESTIMATE Ordered. EDMS 10:05 T-Sheet-- Draft Copy was scanned into [employer] and attached to record. gb 15:28 Rhythm Strip was scanned into [employer] and attached to record. gb 15:29 ECG/EKG was scanned into [employer] and attached to record. gb 15:29 Radiology Report was scanned into [employer] and attached to record. Point of Care Testing: Blood Glucose: 05/16 20:58 Blood Glucose: 201 mg/dL; kas2 Ranges: Administered Medications: 14:20 Drug: Albuterol-Ipratropium 3 ml [ipratropium-albuterol 0.5 mg-3 mg(2.5 mg base)/3 mL kjn nebulization soln (3 mL)] Route: Inhalation; 15:36 Drug: Furosemide 40 mg [furosemide 10 mg/mL injection solution (4 mL)] Route: IVP; rs3 Site: left antecubital; Signatures: Dispatcher [employer] EDMS Zoie Rivera, RN RN Laverne Urena, Powerhouse Mechanic Unit deg Cinda Payne, Reg Reg gb Manuel Hodges MD MD br1 Yesica Moore RN RN rs3 Divya Castillo RN RN hs1 Katerin Kidd RN RN sls1 Jagruti Case Katherine kjn The chart was reviewed and I authenticate all verbal orders and agree with the evaluation and treatment provided.Corrections: (The following items were deleted from the chart) 14:21 13:15 Home Meds: Combivent 20/100 Inhl 2 puff four times a day; hs1 rs3 16:37 16:37 BLOOD CULTURES ordered. EDMS EDMS 16:37 16:37 BLOOD CULTURES ordered. EDMS EDMS 16:50 16:37 PROTHROMBIN TIME PROFILE\E\INR ordered. EDMS EDMS 05/17 04:23 02 19:32 COMPLETE COMPHRENSIVE METABOLI ordered. EDMS EDMS 05/17 04:23 0206 19:32 MAGNESIUM LEVEL ordered. EDMS EDMS Attachments: 18:44 [facility] Payment Agreement [facility] 05/17 10:05 T-Sheet-- Draft Copy gb 15:29 ECG/EKG Chart Complete MTDD
--- NOTE | 2016-05-19 08:45 | EDDOCDS ---
Nurse's Notes [facility] Name: Anthony Lopez Age: 70 yrs Sex: Female : 1945 Arrival Date: 05/16/2016 Time: 12:59 Bed Admit Hold Private MD: Diagnosis: Acute respiratory failure;Acute systolic (congestive) heart failure Presentation: 05/16 13:05 Presenting complaint: EMS states: patient went to physical therapy where they wrapped hs1 her legs. Patient has become extremely short of breath and patient having difficulty speaking sentences. Patient breathing approx 40 times per minute at present. Patient states started feeling like this 1 hour ago. Adult Sepsis Screening: The patient does not have new or worsening altered mentation. Patient has a respiratory rate of greater than or equal to 22 (1 point). Systolic blood pressure is greater than 100. Patient has a qSOFA score of 1- Negative Sepsis Screen. Suicide/Homicide risk assessment- the patient denies having any suicidal and/or homicidal ideations and does not present with any other emotional, behavioral or mental health complaints. Status: Patient is not a field service specialist or dependent. Transition of care: patient was not received from another setting of care. 13:05 Acuity: ANN Level 2 hs1 13:05 Method Of Arrival: Ambulance hs1 Triage Assessment: 13:19 General: Appears uncomfortable, Behavior is appropriate for age, cooperative. Pain: hs1 Denies pain. Neurological: Level of Consciousness is awake, alert, obeys commands. Cardiovascular: Capillary refill is sluggish Rhythm is irregular. Respiratory: Onset: The symptoms/episode began/occurred today, Airway is patent Respiratory effort is labored, Respiratory pattern is. Respiratory: GI: Abdomen is obese. Derm: Skin is pale. Historical: - Allergies: codeine; Latex; metal; Percocet; Ramipril; SULFA (SULFONAMIDES) (Hives); Tape; - Home Meds: 1. portable oxygen 2. Norvasc 5 mg Oral tab 1 tab once daily 3. furosemide 40 mg Oral tab 2 tabs once daily 2 tabs every morning, one tab in afternoon 4. spironolactone 25 mg Oral tab 1 tab once daily 5. Travatan Z 0.004 % ophthalmic drop 1 drop once daily 6. Calcium + Vitamin D 600 mg calcium- 200 unit Oral tab daily 7. 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 - Exposure Risk Screening:: None identified. Screenin:00 Infection Control. deg 05/17 07:23 Screening information is obtained from the patient. Fall risk: At risk due to gait nr1 disturbance. Assistance ADL's: requires no assistance with activities of daily living. Abuse/DV Screen: The patient / caregiver reports he/she is: not in a situation that causes fear, pain or injury. Nutritional screening: No deficits noted. Advance Directives: There is no active DNR order. home support is adequate. Assessment: 05/16 14:16 General: Appears uncomfortable. Pain: Denies pain. Cardiovascular: Capillary refill < 3 rs3 seconds Heart tones S1 S2 present Chest pain is denied. Respiratory: Airway is patent Respiratory effort is even, labored, Respiratory pattern is regular, symmetrical, Breath sounds are coarse bilaterally. Derm: Skin is pink, warm & dry. 15:38 General: Appears uncomfortable, patient is on non-re breather. try to wean her off to rs3 nasal canula. sat 80s. attending provider aware. BiPAP orders in. Respiratory in with patient. patient returned from CT angio/ultrasound tolerated well. lung sounds coarse rales throughout. Lasix 40 mg IVP given. Duckworth inserted drained clear urine. . 16:40 General: Appears in no apparent distress, patient tolerating on BiPAP settings. rs3 tolerating well. No acute distress. breathes easy. denies of pain/distress. Duckworth drains cloudy yellow urine. 17:54 General: Appears in no apparent distress, Behavior is cooperative, Dr. Spann and rs3 resident with patient. patient resting comfortable tolerating BiPAP settings. vital signs stable. Output 200cc/duckworth. 18:45 General: Appears in no apparent distress, Behavior is appropriate for age, cooperative, rs3 denies of pain/distress. tolerating Bipap. extra blankets provided. reports of being cold. vital signs stable. 19:04 General: Verbal report given by Agnieszka Gonzalez RN. Assumed care of patient at this time.. [facility] [place] General: Appears in no apparent distress, comfortable, well nourished, well groomed, kas2 Behavior is appropriate for age, cooperative. Pain: Denies pain. Neurological: Level of Consciousness is awake, alert, Oriented to person, place, time. Cardiovascular: Capillary refill < 3 seconds Heart tones S1 S2 present Rhythm is sinus rhythm No ectopy. Chest pain is denied. Respiratory: Airway is patent Respiratory effort is even, unlabored, Respiratory pattern is regular, symmetrical, Breath sounds are coarse bilaterally. Derm: Skin is intact, Skin is dry, Skin is pink, warm & dry. Skin temperature is warm. Musculoskeletal: No deficits noted. Injury Description: No known injury. 20:57 General: Appears in no apparent distress, comfortable, Behavior is appropriate for age, kas2 cooperative. Pain: Denies pain. Neurological: Level of Consciousness is awake, alert, Oriented to person, place, time. Cardiovascular: Rhythm is sinus rhythm No ectopy. Chest pain is denied. Respiratory: Airway is patent Respiratory effort is even, unlabored, Respiratory pattern is regular, symmetrical. Derm: Skin is intact, Skin is dry, Skin is pink, warm & dry. Skin temperature is warm. 20:58 General: Patient given her 2100 meds. No apparent distress. Appears comfortable. [place] [facility] [place]. Will continue to monitor.. 21:54 General: Appears in no apparent distress, comfortable, Behavior is appropriate for age, kas2 cooperative. Pain: Denies pain. Neurological: Level of Consciousness is awake, alert, Oriented to person, place, time. Cardiovascular: Rhythm is sinus rhythm No ectopy. Respiratory: Airway is patent Respiratory effort is even, unlabored, Respiratory pattern is regular, symmetrical. Derm: Skin is intact, Skin is dry, Skin is pink, warm & dry. Skin temperature is warm. 23:35 General: Appears in no apparent distress, comfortable, Behavior is appropriate for age, kas2 cooperative. Pain: Denies pain. Neurological: Level of Consciousness is awake, alert, Oriented to person, place, time. Cardiovascular: Rhythm is sinus rhythm No ectopy. Respiratory: Airway is patent Respiratory effort is even, unlabored, Respiratory pattern is regular, symmetrical. Derm: Skin is intact, Skin is dry, Skin is pink, warm & dry. Skin temperature is warm. 05/17 01:43 General: Appears in no apparent distress, comfortable, Behavior is appropriate for age, kas2 cooperative. Pain: Denies pain. Neurological: Level of Consciousness is awake, alert, Oriented to person, place, time. Cardiovascular: Rhythm is sinus rhythm No ectopy. Chest pain is denied. Respiratory: Airway is patent Respiratory effort is even, unlabored, Respiratory pattern is regular, symmetrical, Breath sounds are coarse bilaterally. Derm: Skin is intact, Skin is dry, Skin is pink, warm & dry. Skin temperature is warm. 02:08 General: Patient complaining of pain in her back and legs 09/17. Resettled in bed. Meds kas2 given. Airway patent. Respiratory effort even and unlabored. BIPAP remains on. No apparent distress noted. Call ahuja within reach. Will continue to monitor.. 02:56 General: Appears in no apparent distress, comfortable, to be sleeping. Behavior is kas2 appropriate for age, cooperative. Neurological:. Cardiovascular: Rhythm is sinus rhythm No ectopy. Respiratory: Airway is patent Respiratory effort is even, unlabored, Respiratory pattern is regular, symmetrical. Derm: Skin is intact, Skin is dry, Skin is pink, warm & dry. Skin temperature is warm. 04:41 General: Patient laying in bed sleeping at this time with BIPAP on. Appears kas2 comfortable. No apparent distress noted. Airway patent and respiratory effort even and unlabored. VSS. Call ahuja within reach. Will continue to monitor.. 05:36 General: Appears in no apparent distress, uncomfortable, Behavior is appropriate for kas2 age, cooperative. Pain: Location: coccyx Pain currently is 4 out of 10 on a pain scale. Neurological: Level of Consciousness is awake, alert, Oriented to person, place, time. Cardiovascular: Capillary refill < 3 seconds Heart tones S1 S2 present Rhythm is sinus rhythm No ectopy. Respiratory: Airway is patent Respiratory effort is even, unlabored, Respiratory pattern is regular, symmetrical, Derm: Skin is intact, Skin is dry, Skin is pink, warm & dry. Skin temperature is warm. 06:42 General: Patient repositioned in bed and turned to left side. No apparent distress at kas2 this time. Patient given small sips of water. VSS. BIPAP remains on. Airway patent and respiratory effort even and unlabored. Call ahuja within reach. Will continue to monitor.. 07:22 Respiratory: Airway Respiratory effort is Respiratory pattern is Derm: nr1 Vital Signs: 05/16 13:17 Resp 44; Pulse Ox 69% on R/A; hs1 13:17 BP 177 / 88; Pulse 96; Resp 44; Pulse Ox 99% on 15% Non-rebreather mask; Weight 133.36 hs1 kg; Height 5 ft. 3 in. (160.02 cm); Pain 0/10; 13:39 BP 184 / 81 (auto/); kas2 13:39 Pulse 88 MON; Pulse Ox 100% ; kas2 13:51 BP 199 / 82 (auto/); rs3 13:51 Pulse 89 MON; Pulse Ox 94% ; rs3 13:58 Temp 97.7(O); rs3 14:14 Pulse 83 MON; Pulse Ox 98% ; rs3 14:15 BP 185 / 75 (auto/); rs3 14:15 Pulse 84 MON; Pulse Ox 97% ; rs3 14:30 Pulse 81 MON; Pulse Ox 99% ; kas2 14:45 BP 171 / 71 (auto/); rs3 14:46 Pulse 78 MON; Pulse Ox 99% ; rs3 15:00 BP 189 / 74 (auto/); rs3 15:01 Pulse 77 MON; Pulse Ox 99% ; rs3 15:18 BP 148 / 65 (auto/); rs3 15:20 Pulse 80 MON; Pulse Ox 98% ; rs3 15:30 BP 146 / 61 (auto/); rs3 15:30 Pulse 81 MON; Resp 20; Pulse Ox 99% ; rs3 15:37 Pulse 72 MON; Pulse Ox 97% ; rs3 15:45 BP 141 / 61 (auto/); rs3 16:00 BP 141 / 62 (auto/); rs3 16:00 Pulse 65 MON; Pulse Ox 98% ; rs3 16:15 BP 146 / 66 (auto/); rs3 16:15 Pulse 61 MON; Pulse Ox 99% ; rs3 16:30 BP 152 / 63 (auto/); rs3 16:30 Pulse 67 MON; Pulse Ox 98% ; rs3 16:53 BP 168 / 92 (auto/); kas2 16:53 Pulse 70 MON; Pulse Ox 97% ; kas2 16:57 BP 152 / 65 (auto/); rs3 16:57 Pulse 61 MON; Pulse Ox 97% ; rs3 17:00 BP 159 / 67 (auto/); rs3 17:00 Pulse 71 MON; Pulse Ox 98% ; rs3 17:15 BP 157 / 62 (auto/); rs3 17:15 Pulse 70 MON; Pulse Ox 99% ; rs3 17:30 BP 143 / 63 (auto/); rs3 17:30 Pulse 70 MON; Pulse Ox 98% ; rs3 17:45 BP 147 / 60 (auto/); rs3 17:45 Pulse 72 MON; Pulse Ox 99% ; rs3 18:00 BP 133 / 56 (auto/); rs3 18:00 Pulse 80 MON; Pulse Ox 96% ; rs3 18:30 BP 122 / 78 (auto/); rs3 18:30 Pulse 74 MON; Pulse Ox 96% ; rs3 18:44 Pulse 75 MON; Pulse Ox 96% ; rs3 18:45 BP 134 / 74 (auto/); kas2 18:45 Pulse 76 MON; Pulse Ox 95% ; kas2 19:00 BP 150 / 87 (auto/); kas2 19:00 Pulse 77 MON; Pulse Ox 97% ; kas2 19:15 BP 156 / 60 (auto/); kas2 19:15 Pulse 76 MON; Pulse Ox 97% ; kas2 19:43 BP 163 / 95 (auto/); kas2 19:43 Pulse 77 MON; Pulse Ox 96% ; kas2 19:45 BP 161 / 69 (auto/); kas2 19:45 Pulse 78 MON; Pulse Ox 97% ; kas2 20:00 BP 161 / 65 (auto/); kas2 20:00 Pulse 78 MON; Pulse Ox 96% ; kas2 20:18 BP 129 / 59 (auto/); kas2 20:18 Pulse 78 MON; Pulse Ox 96% ; kas2 20:30 BP 147 / 58 (auto/); kas2 20:30 Pulse 82 MON; Pulse Ox 95% ; kas2 20:45 BP 175 / 68 (auto/); kas2 20:45 Pulse 77 MON; Pulse Ox 96% ; kas2 21:00 Resp 20; Temp 98.0(O); Pain 0/10; kas2 21:06 BP 152 / 57 (auto/); kas2 21:06 Pulse 109 MON; Pulse Ox 90% ; kas2 21:15 BP 158 / 65 (auto/); kas2 21:15 Pulse Ox 91% ; kas2 21:30 BP 165 / 66 (auto/); kas2 21:30 Pulse Ox 91% ; kas2 21:45 BP 167 / 66 (auto/); kas2 21:45 Pulse Ox 91% ; kas2 22:15 BP 98 / 47 (auto/); kas2 22:15 Pulse Ox 90% ; kas2 22:20 BP 176 / 70 (auto/); kas2 22:20 Pulse Ox 90% ; kas2 22:30 BP 189 / 76 (auto/); kas2 22:30 Pulse 77 MON; Pulse Ox 93% ; kas2 22:45 BP 134 / 65 (auto/); kas2 22:45 Pulse 73 MON; Pulse Ox 95% ; kas2 23:00 BP 150 / 72 (auto/); kas2 23:00 Pulse 72 MON; kas2 23:15 BP 171 / 68 (auto/); kas2 23:15 Pulse 74 MON; Pulse Ox 96% ; kas2 23:30 BP 143 / 65 (auto/); kas2 23:30 Pulse 75 MON; Pulse Ox 96% ; kas2 23:36 Resp 18; Temp 97.8(O); kas2 0207 00:00 BP 124 / 88 (auto/); kas2 00:00 Pulse 79 MON; kas2 00:15 BP 154 / 58 (auto/); kas2 00:15 Pulse 78 MON; kas2 00:30 BP 170 / 80 (auto/); kas2 00:30 Pulse 76 MON; Pulse Ox 97% ; kas2 00:45 BP 139 / 53 (auto/); kas2 00:45 Pulse 84 MON; Pulse Ox 96% ; kas2 01:15 BP 147 / 60 (auto/); kas2 01:15 Pulse 78 MON; Pulse Ox 96% ; kas2 01:45 Resp 18; Temp 97.9; kas2 02:07 BP 184 / 75 (auto/); kas2 02:07 Pulse 80 MON; Pulse Ox 97% ; kas2 02:35 BP 162 / 74; Pulse 76; Resp 18; Temp 98.1(O); Pain 0/10; kas2 03:45 BP 134 / 51 (auto/); kas2 03:45 Pulse 78 MON; Pulse Ox 97% ; kas2 04:00 BP 143 / 59 (auto/); kas2 04:00 Pulse 79 MON; Pulse Ox 97% ; kas2 04:30 BP 117 / 54 (auto/); kas2 04:30 Pulse 82 MON; Pulse Ox 98% ; kas2 04:45 BP 119 / 52 (auto/); kas2 04:45 Pulse 82 MON; Pulse Ox 97% ; kas2 05:00 BP 107 / 51 (auto/); kas2 05:00 Pulse 82 MON; Pulse Ox 98% ; kas2 05:15 BP 123 / 53 (auto/); kas2 05:15 Pulse 79 MON; Pulse Ox 95% ; kas2 05:30 BP 112 / 52 (auto/); kas2 05:30 Pulse 73 MON; Pulse Ox 95% ; kas2 05:32 Resp 20; Temp 100.1(TE); kas2 05:45 BP 116 / 53 (auto/); kas2 05:45 Pulse 80 MON; Pulse Ox 95% ; kas2 06:00 BP 121 / 53 (auto/); kas2 06:00 Pulse 77 MON; Pulse Ox 95% ; kas2 06:15 BP 122 / 53 (auto/); kas2 06:15 Pulse 73 MON; Pulse Ox 95% ; kas2 06:26 Temp 98.6; luis e 06:39 BP 121 / 56 (auto/); kas2 06:39 Pulse 80 MON; Pulse Ox 96% ; kas2 06:44 Resp 20; kas2 05/16 13:17 Body Mass Index 52.08 (133.36 kg, 160.02 cm) hs1 Vitals: 05/16 13:07 Log In Time N/A - ambulance arrival. hs1 ED Course: 13:00 Patient visited by Laverne Hobson, Precision Machinist. deg 13:00 Patient moved to Waiting deg 13:01 Felicia Peng,RN is Primary Nurse. deg 13:01 Patient moved to 6 deg 13:05 Janice Leger,RN is Primary Nurse. deg 13:05 Yesica Moore,JOEL is Primary Nurse. deg 13:05 Patient moved to 3 deg 13:07 Triage Initiated hs1 13:14 Patient visited by Divya Castillo RN. hs1 13:19 Yissel Hodges MD is Attending Physician. br1 13:23 Patient visited by Yissel Hodges MD. br1 13:33 Patient visited by Carl Ford PCA. jlf 13:33 EKG done. (by ED staff). Reviewed by Yissel Hodges MD. jlf 13:48 Inserted saline lock: 18 gauge in left antecubital area and blood collected. The js13 patient tolerated the procedure well. 13:56 D-Dimer Quant Sent. rs3 13:56 Lactic Acid (Pichardo tube on ice) Sent. rs3 13:56 Troponin Sent. rs3 13:57 Cardiac Injury Profile Sent. rs3 13:57 B-Type Natiuretic Peptide Sent. rs3 13:58 Basic Metabolic Profile Sent. rs3 13:58 CBC with Diff Sent. rs3 14:15 Patient visited by Yesica Moore RN. rs3 14:20 -Arterial Blood Gas Sent. kjn 14:26 Patient moved to Ultrasound hgl 15:[address] hgl 15:20 Patient visited by Yissel Hodges MD. br1 15:25 portable chest Returned. EDMS 16:08 Patient visited by Yesica Moore RN. rs3 16:09 Ultrasound Bilateral LE R/O DVT Returned. EDMS 16:09 CT Chest Angio R/O PE Returned. EDMS 16:10 Patient moved to 3 rs3 16:17 Sheree Salinas is Hospitalizing Provider. br1 16:25 -Arterial Blood Gas Sent. rs5 17:14 Patient visited by Yesica Moore RN. rs3 17:15 Duckworth cath inserted 16 Fr. Balloon inflated. To gravity drainage. Urine specimen rs3 collected. 18:44 Patient visited by Yesica Moore RN. rs3 18:44 [facility] Payment Agreement was scanned into [employer] and attached to record. gjb 19:04 Patient visited by Leelee Richards RN. kas2 19:17 Patient visited by Leelee Richards RN. kas2 19:50 Leelee Richards,JOEL is Primary Nurse. kas2 20:30 Patient moved to Admit Hold sls1 20:54 EKG-ADULT Returned. EDMS 20:58 Primary Nurse role handed off by Janice Leger,JOEL luis e 21:01 Patient visited by Leelee Richards RN. kas2 21:21 Patient visited by Leelee Richards RN. kas2 21:56 Patient visited by Leelee Richards RN. kas2 22:19 Patient visited by Leelee Richards RN. kas2 23:37 Patient visited by Leelee Richards RN. kas2 23:56 Primary Nurse role handed off by Felicia Peng RN luis e 23:57 Primary Nurse role handed off by Yesica Moore RN luis e 05/17 01:45 Patient visited by Leelee Richards RN. kas2 02:10 Patient visited by Leelee Richards RN. kas2 02:58 Patient visited by Leelee Richards RN. kas2 04:44 Patient visited by Leelee Richards RN. kas2 05:32 Patient visited by Leelee Richards RN. kas2 05:38 Patient visited by Leelee Richards RN. kas2 06:26 Patient visited by Leelee Richards RN. kas2 06:26 Patient visited by Jojo Kauffman PCA. luis e 06:44 Patient visited by Leelee Richards RN. kas2 06:51 Patient visited by Leelee Richards RN. kas2 06:58 Pilar Severino,JOEL is Primary Nurse. ja5 07:02 Patient visited by Leelee Richards RN. kas2 07:23 The patient / caregiver is instructed regarding the plan of care and ED course. nr1 10:05 T-Sheet-- Draft Copy was scanned into [employer] and attached to record. gb 15:28 Rhythm Strip was scanned into [employer] and attached to record. gb 15:29 ECG/EKG was scanned into [employer] and attached to record. gb 15:29 Radiology Report was scanned into [employer] and attached to record. gb Administered Medications: 05/16 14:20 Drug: Albuterol-Ipratropium 3 ml [ipratropium-albuterol 0.5 mg-3 mg(2.5 mg base)/3 mL kjn nebulization soln (3 mL)] Route: Inhalation; 15:36 Drug: Furosemide 40 mg [furosemide 10 mg/mL injection solution (4 mL)] Route: IVP; rs3 Site: left antecubital; Attachments: 15:28 Rhythm Strip gb Point of Care Testing: Blood Glucose: 05/16 20:58 Blood Glucose: 201 mg/dL; kas2 Ranges: Output: 17:55 Urine: 200.00ml (Duckworth); Total: 200.00ml. rs3 05/17 04:50 Urine: 900.00ml (Duckworth); Total: 1100.00ml. kas2 06:40 Urine: 150.00ml (Duckworth); Total: 1250.00ml. kas2 RT: 05/16 14:20 ABG's drawn from right radial artery allens test done and positive pressure held for 5 kjn minutes no bleeding noted pressure bandage applied specimen sent pt. tolerated well. Initial Med Neb Given as ordered. Respiratory: Breath sounds are diminished bilaterally. Breath sounds with wheezes bilaterally. 15:47 Ventilation: Ventilator Settings. BIPAP: Inspiratory Pressure: 18, Expiratory Pressure: rs5 8, Backup Rate: 10, FiO2: 50%, Full face fask. 16:25 ABG's drawn from right radial artery allens test done and positive pressure held for 5 rs5 minutes no bleeding noted pressure bandage applied specimen sent pt. tolerated well. Order Results: Lab Order: B-Type Natiuretic Peptide; SPEC'M 05/16/16 13:45 Test: BRAIN NATRIURETIC PEPTIDE; Value: 1280; Range: <100; Abnormal: Above high normal; Units: PG/ML; Status: F Lab Order: Basic Metabolic Profile; [facility] 05/16/16 13:45 Test: GLUCOSE, FASTING; Value: 180; Range: 83-110; Abnormal: Above high normal; Units: MG/DL; Status: F Test: BLOOD UREA NITROGEN; Value: 23; Range: 7-18; Abnormal: Above high normal; Units: MG/DL; Status: F Test: CREATININE FOR GFR; Value: 0.97; Range: 0.55-1.02; Units: MG/DL; Status: F Test: GLOMERULAR FILTRATION RATE; Value: > 60.0; Range: >39; Status: F Test: SODIUM LEVEL; Value: 148; Range: 136-145; Abnormal: Above high normal; Units: MEQ/L; Status: F Test: POTASSIUM SERUM; Value: 4.4; Range: 3.5-5.1; Units: MEQ/L; Status: F Test: CHLORIDE LEVEL; Value: 110; Range: 98-107; Abnormal: Above high normal; Units: MEQ/L; Status: F Test: CARBON DIOXIDE LEVEL; Value: 33; Range: 21-32; Abnormal: Above high normal; Units: MEQ/L; Status: F Test: ANION GAP; Value: 5; Range: 8-16; Abnormal: Below low normal; Units: MEQ/L; Status: F Test: CALCIUM LEVEL; Value: 8.7; Range: 8.8-10.2; Abnormal: Below low normal; Units: MG/DL; Status: F Test Note: ; Units are mL/min/1.73 m2 Chronic Kidney Disease Staging per NKF: Stage I & II GFR >=60 Normal to Mildly Decreased Stage III GFR 30-59 Moderately Decreased Stage IV GFR 15-29 Severely Decreased Stage V GFR <15 Very Little GFR Left ESRD GFR <15 on DIESEL PILE HAMMER OPERATOR Lab Order: CBC with Diff; SPEC'M 05/16/16 13:45 Test: WHITE BLOOD COUNT; Value: 8.2; Range: 4.0-10.0; Units: K/mm3; Status: F Test: RED BLOOD COUNT; Value: 3.46; Range: 4.00-5.40; Abnormal: Below low normal; Units: M/mm3; Status: F Test: HEMOGLOBIN; Value: 11.5; Range: 12.0-16.0; Abnormal: Below low normal; Units: g/dl; Status: F Test: HEMATOCRIT; Value: 38.0; Range: 36.0-47.0; Units: %; Status: F Test: MEAN CORPUSCULAR VOLUME; Value: 109.6; Range: 80.0-96.0; Abnormal: Above high normal; Units: fl; Status: F Test: MEAN CORPUSCULAR HEMOGLOBIN; Value: 33.1; Range: 27.0-33.0; Abnormal: Above high normal; Units: pg; Status: F Test: MEAN CORPUSCULAR HGB CONC; Value: 30.2; Range: 32.0-36.5; Abnormal: Below low normal; Units: g/dl; Status: F Test: RED CELL DISTRIBUTION WIDTH; Value: 15.7; Range: 11.5-14.5; Abnormal: Above high normal; Units: %; Status: F Test: PLATELET COUNT, AUTOMATED; Value: 212; Range: 150-450; Units: k/mm3; Status: F Test: NEUTROPHILS %; Value: 70.9; Range: 36.0-66.0; Abnormal: Above high normal; Units: %; Status: F Test: LYMPH %; Value: 22.2; Range: 24.0-44.0; Abnormal: Below low normal; Units: %; Status: F Test: MONO %; Value: 4.6; Range: 0.0-5.0; Units: %; Status: F Test: EOS %; Value: 0.9; Range: 0.0-3.0; Units: %; Status: F Test: BASO %; Value: 0.2; Range: 0.0-1.0; Units: %; Status: F Test: LARGE UNSTAINED CELL %; Value: 1.3; Range: 0.0-4.0; Units: %; Status: F Test: NEUTROPHILS #; Value: 5.8; Range: 1.8-7.7; Units: K/mm3; Status: F Test: LYMPH #; Value: 1.8; Range: 1.5-4.5; Units: K/mm3; Status: F Test: MONO #; Value: 0.4; Range: 0.0-0.8; Units: K/mm3; Status: F Test: EOS #; Value: 0.1; Range: 0.0-0.50; Units: K/mm3; Status: F Test: BASO #; Value: 0.0; Range: 0.0-0.2; Units: K/mm3; Status: F Test: LARGE UNSTAINED CELL #; Value: 0.1; Range: 0.0-0.4; Units: K/mm3; Status: F Lab Order: Cardiac Injury Profile; SPEC'M 05/16/16 13:45 Test: CPK CREATINE PHOSPHOKINASE; Value: 45; Range: 26-192; Units: U/L; Status: F Test: CK-MB VALUE MASS; Value: 1.0; Range: 0.0-3.6; Units: NG/ML; Status: F Test: MB/CK RELATIVE INDEX; Value: 2.22; Range: < OR =4; Status: F Test Note: ; DIAGNOSIS CRITERIA MMB ng/ml Relative Index (RI) NON-AMI < or = 5 N/A PICHARDO ZONE > 5 < or = 4 AMI > 5 > 4 Lab Order: Troponin; [facility]05/16/16 13:45 Test: TROPONIN I; Value: < 0.02; Range: < 0.10; Units: NG/ML; Status: F Test Note: ; Troponin I Reference Interval for [employer] [place] LOCI: 99th Percentile= 0.00-0.045 ng/ml Risk Stratification: <= 0.10 ng/ml Decreased Risk for Adverse Clinical Events. 0.10-1.50 ng/ml Increased Risk for Adverse Clinical Events. Evaluation of additional criterion and/or repeat testing in 2-6 hours is suggested to rule out myocardial damage. >= 1.50 ng/ml Indicative of Myocardial Injury. Lab Order: -Influenza A&B Rapid Antigen - Nose; 05/16/16 13:46 Test: INFLUENZA A RAPID SCR by ICA; Value: INFLUENZA A RESULTS NEGATIVE; Status: F Test: INFLUENZA A RAPID SCR by ICA; Value: Comments:; Status: F Test: INFLUENZA B RAPID SCR by ICA; Value: INFLUENZA B RESULTS NEGATIVE; Status: F Test Note: ; The Influenza test is a direct rapid immunoassay for the qualitative detection of Influenza viral antigen. Cell culture (Viral Culture) testing should be considered to confirm NEGATIVE results and to assist in detecting other viruses that can provide similar clinical symptoms. Please contact the lab within 24 hours ([phone]) if confirmatory testing is desired. Lab Order: Lactic Acid (Pichardo tube on ice); [facility] 05/16/16 13:46 Test: LACTIC ACID SEPSIS PROTOCOL; Value: 1.0; Range: 0.4-2.0; Units: MMOL/L; Status: F Lab Order: -Arterial Blood Gas; [facility]05/16/16 14:15 Test: ABG pH (ARTERIAL); Value: 7.173; Range: 7.350-7.450; Abnormal: Critical Low; Units: UNITS; Status: F Test: ABG PARTIAL PRESSURE CO2; Value: 86.2; Range: 35.0-45.0; Abnormal: Above upper panic limits; Units: mmHg; Status: F Test: ABG PARTIAL PRESSURE O2; Value: 137.9; Range: 75.0-100.0; Abnormal: Above high normal; Units: mmHg; Status: F Test: ABG TOTAL CO2; Value: 33.6; Range: 23.0-31.0; Abnormal: Above high normal; Units: MEQ/L; Status: F Test: ABG HCO3; Value: 30.9; Range: 22.0-26.0; Abnormal: Above high normal; Units: MEQ/L; Status: F Test: ABG BASE EXCESS; Value: 0.3; Range: -2.0-2.0; Status: F Test: ABG STANDARD HCO3; Value: 24.8; Range: 22.0-26.0; Units: MEQ/L; Status: F Test: ABG O2 SATURATION; Value: 98.7; Range: 95.0-99.0; Units: %; Status: F Test: ABG DEVICE; Value: NASAL STEPHEN; Status: F Lab Order: D-Dimer Quant; [facility] 05/16/16 13:46 Test: D-DIMER QUANT; Value: 1180.1; Range: <500; Abnormal: Above high normal; Units: ng/ml; Status: F Lab Order: RBC MORPH PROF NO CHARGE; [facility] 05/16/16 13:45 Test: PLATELET ESTIMATE; Range: NORMAL; Status: I Test: POLYCHROMASIA; Value: 1+; Status: F Test: BASOPHILIC STIPPLING; Value: 1+; Status: F Test: ANISOCYTOSIS; Value: 2+; Status: F Test: MACROCYTOSIS; Value: 3+; Status: F Test: PLATELET ESTIMATE; Value: NORMAL; Range: NORMAL; Status: F Lab Order: -Arterial Blood Gas; [facility] 05/16/16 16:16 Test: ABG pH (ARTERIAL); Value: 7.287; Range: 7.350-7.450; Abnormal: Below low normal; Units: UNITS; Status: F Test: ABG PARTIAL PRESSURE CO2; Value: 58.5; Range: 35.0-45.0; Abnormal: Above high normal; Units: mmHg; Status: F Test: ABG PARTIAL PRESSURE O2; Value: 108.9; Range: 75.0-100.0; Abnormal: Above high normal; Units: mmHg; Status: F Test: ABG TOTAL CO2; Value: 29.1; Range: 23.0-31.0; Units: MEQ/L; Status: F Test: ABG HCO3; Value: 27.3; Range: 22.0-26.0; Abnormal: Above high normal; Units: MEQ/L; Status: F Test: ABG BASE EXCESS; Value: -0.1; Range: -2.0-2.0; Status: F Test: ABG STANDARD HCO3; Value: 24.4; Range: 22.0-26.0; Units: MEQ/L; Status: F Test: ABG O2 SATURATION; Value: 98.2; Range: 95.0-99.0; Units: %; Status: F Test: ABG DEVICE; Value: NASAL STEPHEN; Status: F Lab Order: CARDIAC INJURY PROFILE; [facility] 05/16/16 20:10 Test: CPK CREATINE PHOSPHOKINASE; Value: 47; Range: 26-192; Units: U/L; Status: F Test: CK-MB VALUE MASS; Value: 1.1; Range: 0.0-3.6; Units: NG/ML; Status: F Test: MB/CK RELATIVE INDEX; Value: 2.34; Range: < OR =4; Status: F Test Note: ; DIAGNOSIS CRITERIA MMB ng/ml Relative Index (RI) NON-AMI < or = 5 N/A PICHARDO ZONE > 5 < or = 4 AMI > 5 > 4 Lab Order: TROPONIN; [facility] 05/16/16 20:10 Test: TROPONIN I; Value: < 0.02; Range: < 0.10; Units: NG/ML; Status: F Test Note: ; Troponin I Reference Interval for [employer] LOCI: 99th Percentile= 0.00-0.045 ng/ml Risk Stratification: <= 0.10 ng/ml Decreased Risk for Adverse Clinical Events. 0.10-1.50 ng/ml Increased Risk for Adverse Clinical Events. Evaluation of additional criterion and/or repeat testing in 2-6 hours is suggested to rule out myocardial damage. >= 1.50 ng/ml Indicative of Myocardial Injury. Lab Order: URINALYSIS; [facility] 05/16/16 17:09 Test: APPEARANCE, URINE; Value: CLOUDY; Range: CLEAR; Abnormal: Above high normal; Status: F Test: COLOR, URINE; Value: YELLOW; Range: YELLOW; Status: F Test: PH,URINE; Value: 5.0; Range: 5.0-9.0; Units: UNITS; Status: F Test: SPECIFIC GRAVITY URINE AUTO; Value: 1.020; Range: 1.002-1.035; Status: F Test: PROTEIN, URINE AUTO; Value: 3+; Range: NEGATIVE; Abnormal: Above high normal; Units: mg/dL; Status: F Test: GLUCOSE, URINE (UA) AUTO; Value: NEGATIVE; Range: NEGATIVE; Units: mg/dL; Status: F Test: KETONE, URINE AUTO; Value: NEGATIVE; Range: NEGATIVE; Units: mg/dL; Status: F Test: UROBILINOGEN, URINE AUTO; Value: 0.2; Range: 0.0-2.0; Units: mg/dL; Status: F Test: BILIRUBIN, URINE AUTO; Value: NEGATIVE; Range: NEGATIVE; Status: F Test: NITRITE, URINE AUTO; Value: NEGATIVE; Range: NEGATIVE; Status: F Test: LEUKOCYTE ESTERASE, URINE AUTO; Value: 1+; Range: NEGATIVE; Abnormal: Above high normal; Status: F Test: BLOOD, URINE BLOOD; Value: 1+; Range: NEGATIVE; Abnormal: Above high normal; Status: F Test: WBC, URINE AUTO; Value: 56; Range: 0-3; Abnormal: Above high normal; Units: /HPF; Status: F Test: RBC, URINE AUTO; Value: 11; Range: 0-3; Abnormal: Above high normal; Units: /HPF; Status: F Test: BACTERIA, URINE AUTO; Value: 3+; Range: NEGATIVE; Abnormal: Above high normal; Status: F Test: SQUAMOUS EPITHELIAL CELL UR AU; Value: 0; Range: 0-6; Units: /HPF; Status: F Test: MUCUS, URINE; Value: SMALL; Range: NEGATIVE; Status: F Test: HYALINE CAST, URINE AUTO; Value: 4; Range: 0-1; Units: /LPF; Status: F Test: AMORPHOUS SEDIMENT; Value: SMALL; Range: NEGATIVE; Abnormal: Above high normal; Status: F Lab Order: PROTHROMBIN TIME PROFILE\E\INR; SPEC'M 05/17/16 04:17 Test: PROTHROMBIN TIME; Value: 26.8; Range: 12.3-14.5; Abnormal: Above high normal; Units: SECONDS; Status: F Test: INR; Value: 2.47; Status: F Test Note: ; THERAPUTIC HUMAN INR VALUES INDICATIONS NORMAL RANGES PROPHYLAXIS/TREATMENT OF: VENOUS THROMBOSIS 2.0-3.0 PULMONARY EMBOLISM 2.0-3.0 PREVENTION OF SYSTEMIC EMBOLISM FROM: TISSUE HEART VALVES 2.0-3.0 ACUTE MYOCARDIAL INFARCTION 2.0-3.0 VALVULAR HEART DISEASE 2.0-3.0 ATRIAL FIBRILLATION 2.0-3.0 MECHANICAL VALVES(HIGH RISK) 2.5-3.5 RECURRENT MYOCARDIAL INFARCTION 2.5-3.5 Lab Order: ARTERIAL BLOOD GAS; [facility] 05/16/16 20:55 Test: ABG pH (ARTERIAL); Value: 7.374; Range: 7.350-7.450; Units: UNITS; Status: F Test: ABG PARTIAL PRESSURE CO2; Value: 53.9; Range: 35.0-45.0; Abnormal: Above high normal; Units: mmHg; Status: F Test: ABG PARTIAL PRESSURE O2; Value: 61.3; Range: 75.0-100.0; Abnormal: Below low normal; Units: mmHg; Status: F Test: ABG TOTAL CO2; Value: 32.4; Range: 23.0-31.0; Abnormal: Above high normal; Units: MEQ/L; Status: F Test: ABG HCO3; Value: 30.7; Range: 22.0-26.0; Abnormal: Above high normal; Units: MEQ/L; Status: F Test: ABG BASE EXCESS; Value: 4.5; Range: -2.0-2.0; Abnormal: Above high normal; Status: F Test: ABG STANDARD HCO3; Value: 28.4; Range: 22.0-26.0; Abnormal: Above high normal; Units: MEQ/L; Status: F Test: ABG O2 SATURATION; Value: 93.2; Range: 95.0-99.0; Abnormal: Below low normal; Units: %; Status: F Lab Order: CARDIAC INJURY PROFILE; [facility] 05/17/16 04:17 Test: CPK CREATINE PHOSPHOKINASE; Value: 92; Range: 26-192; Abnormal: Delta; Units: U/L; Status: F Test: CK-MB VALUE MASS; Value: 1.0; Range: 0.0-3.6; Units: NG/ML; Status: F Test: MB/CK RELATIVE INDEX; Value: 1.08; Range: < OR =4; Status: F Test Note: ; DIAGNOSIS CRITERIA MMB ng/ml Relative Index (RI) NON-AMI < or = 5 N/A PICHARDO ZONE > 5 < or = 4 AMI > 5 > 4 Lab Order: TROPONIN; SPEC'M 05/17/16 04:17 Test: TROPONIN I; Value: 0.02; Range: < 0.10; Units: NG/ML; Status: F Test Note: ; Troponin I Reference Interval for [employer] LOCI: 99th Percentile= 0.00-0.045 ng/ml Risk Stratification: <= 0.10 ng/ml Decreased Risk for Adverse Clinical Events. 0.10-1.50 ng/ml Increased Risk for Adverse Clinical Events. Evaluation of additional criterion and/or repeat testing in 2-6 hours is suggested to rule out myocardial damage. >= 1.50 ng/ml Indicative of Myocardial Injury. Lab Order: CBC WITH DIFFERENTIAL; SPEC05/17/16 04:17 Test: WHITE BLOOD COUNT; Value: 4.2; Range: 4.0-10.0; Units: K/mm3; Status: F Test: RED BLOOD COUNT; Value: 2.92; Range: 4.00-5.40; Abnormal: Below low normal; Units: M/mm3; Status: F Test: HEMOGLOBIN; Value: 9.9; Range: 12.0-16.0; Abnormal: Below low normal; Units: g/dl; Status: F Test: HEMATOCRIT; Value: 31.6; Range: 36.0-47.0; Abnormal: Below low normal; Units: %; Status: F Test: MEAN CORPUSCULAR VOLUME; Value: 108.2; Range: 80.0-96.0; Abnormal: Above high normal; Units: fl; Status: F Test: MEAN CORPUSCULAR HEMOGLOBIN; Value: 33.9; Range: 27.0-33.0; Abnormal: Above high normal; Units: pg; Status: F Test: MEAN CORPUSCULAR HGB CONC; Value: 31.3; Range: 32.0-36.5; Abnormal: Below low normal; Units: g/dl; Status: F Test: RED CELL DISTRIBUTION WIDTH; Value: 15.7; Range: 11.5-14.5; Abnormal: Above high normal; Units: %; Status: F Test: PLATELET COUNT, AUTOMATED; Value: 167; Range: 150-450; Units: k/mm3; Status: F Test: NEUTROPHILS; Value: 62; Range: 35-75; Units: %; Status: F Test: BANDS; Value: 3; Range: < 11; Units: %; Status: F Test: LYMPHOCYTES; Value: 30; Range: 16-52; Units: %; Status: F Test: MONOCYTES; Value: 4; Range: 0-8; Units: %; Status: F Test: ATYPICAL LYMPH; Value: 1; Range: 0-5; Units: %; Status: F Test: NUCLEATED RED BLOOD CELL; Value: 1; Range: 0-0; Abnormal: Above high normal; Units: %; Status: F Test: BASOPHILIC STIPPLING; Value: 1+; Status: F Test: ANISOCYTOSIS; Value: 1+; Status: F Test: MACROCYTOSIS; Value: 2+; Status: F Lab Order: Fingerstick Blood Sugar; SPEC'M 05/16/16 20:49 Test: BEDSIDE GLUCOSE; Value: 201; Range: 83-110; Abnormal: Above high normal; Units: MG/DL; Status: F Lab Order: COMPLETE COMPHRENSIVE METABOLI; SPEC'M 05/17/16 04:17 Test: GLUCOSE, FASTING; Value: 193; Range: 83-110; Abnormal: Above high normal; Units: MG/DL; Status: F Test: BLOOD UREA NITROGEN; Value: 23; Range: 7-18; Abnormal: Above high normal; Units: MG/DL; Status: F Test: CREATININE FOR GFR; Value: 1.11; Range: 0.55-1.02; Abnormal: Above high normal; Units: MG/DL; Status: F Test: GLOMERULAR FILTRATION RATE; Value: 51.4; Range: >39; Status: F Test: SODIUM LEVEL; Value: 149; Range: 136-145; Abnormal: Above high normal; Units: MEQ/L; Status: F Test: POTASSIUM SERUM; Value: 4.5; Range: 3.5-5.1; Units: MEQ/L; Status: F Test: CHLORIDE LEVEL; Value: 112; Range: 98-107; Abnormal: Above high normal; Units: MEQ/L; Status: F Test: CARBON DIOXIDE LEVEL; Value: 29; Range: 21-32; Units: MEQ/L; Status: F Test: ANION GAP; Value: 8; Range: 8-16; Units: MEQ/L; Status: F Test: CALCIUM LEVEL; Value: 7.9; Range: 8.8-10.2; Abnormal: Below low normal; Units: MG/DL; Status: F Test: AST/SGOT; Value: 22; Range: 15-37; Units: U/L; Status: F Test: ALT/SGPT; Value: 12; Range: 12-78; Units: U/L; Status: F Test: ALKALINE PHOSPHATASE; Value: 90; Range: 45-117; Units: U/L; Status: F Test: BILIRUBIN,TOTAL; Value: 0.9; Range: 0.2-1.0; Units: MG/DL; Status: F Test: TOTAL PROTEIN; Value: 5.1; Range: 6.4-8.2; Abnormal: Below low normal; Units: GM/DL; Status: F Test: ALBUMIN; Value: 2.2; Range: 3.2-5.2; Abnormal: Below low normal; Units: GM/DL; Status: F Test: ALBUMIN/GLOBULIN RATIO; Value: 0.76; Range: 1.00-1.93; Abnormal: Below low normal; Status: F Test Note: ; Units are mL/min/1.73 m2 Chronic Kidney Disease Staging per NKF: Stage I & II GFR >=60 Normal to Mildly Decreased Stage III GFR 30-59 Moderately Decreased Stage IV GFR 15-29 Severely Decreased Stage V GFR <15 Very Little GFR Left ESRD GFR <15 on DIESEL [employer]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 Cardiomegaly with left atrial and ventricular enlargement. There is; vascular redistribution with alveolar and interstitial pulmonary edema.; Effusions are suspected bilaterally. There is basilar atelectasis and/or; infiltrate, left greater than right. Calcified tortuous aortic arch without; change. Airway midline. Bones with degenerative changes in the shoulders and; spine.; ; Impression:; ; 1. 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; : 1945 Requested By: YISSEL Lares; Order Number: [id number] Reading MD: Mary Kay Oviedo; Measurements; Intervals [place]; Rate: 87 P: 59; TX: 167 QRS: -13; QRSD: 102 T: 46; QT: 386; QTc: 465; Interpretive Statements; SINUS RHYTHM WITH OCCASIONAL VENTRICULAR PREMATURE COMPLEXES WITH FREQUENT; SUPRAVENTRICULAR PREMATURE COMPLEXES IN A BIGEMINAL; BASELINE ARTIFACT LIMITS INTERPRETATION; MODERATE ST DEPRESSION; ; Electronically Signed On 05-16-2016 20:11:50 EST by Mary Kay Oviedo; Radiology Order: Ultrasound Bilateral LE R/O DVT Test: Ultrasound Bilateral LE R/O DVT REASON FOR EXAMINATION: Deformity/Swelling; Duplex extremity venous ultrasound: Bilateral lower extremity.; ; History: Question DVT.; ; Findings: Exam quality was inhibited by patient body habitus and soft tissue; edema as well as bandages. As a result the right distal femoral vein could not; be seen. The deep veins are otherwise anechoic and fully compressible from the; groin to the popliteal fossa in the right and left lower extremity. Color flow; imaging is homogeneous. Spectral Doppler interrogation demonstrates intact; respiratory variation in flow and normal manual augmentation of flow. There is; no evidence of deep vein thrombosis.; ; Impression:; ; Some limitation of image quality; distal right femoral vein could not be seen due; to edema, otherwise negative bilateral lower extremity duplex venous ultrasound.; No evidence of deep vein thrombosis.; ; ; Signed by; Devin Caruso MD 05/16/2016 04:51 P; Radiology Order: CT Chest Angio R/O PE Test: CT Chest Angio R/O PE REASON FOR EXAMINATION: Shortness of Breath; CT pulmonary angiogram: With IV contrast.; ; History: Shortness of breath.; ; Comparison studies: Today's chest x-ray. Comparison chest CT study November [id number]; ; Contrast dose: 75 cc's of Isovue 370 are administered intravenously.; ; CT technique: Helical scanning is acquired and overlapping 1.5 mm and contiguous; 3 mm axial images are reformatted. In addition, a 3-D work station is deployed; to generate thick slab maximum intensity projection images in sagittal and; coronal imaging projections.; ; CT pulmonary angiographic findings: There is good opacification of the pulmonary; arterial tree and there is no CT evidence of pulmonary embolism. There are small; bilateral pleural effusions. There is moderate cardiomegaly with four-chamber; dilation. The left atrium measures 5.9 cm in AP dimension. The thoracic aorta; shows atherosclerotic calcification, but no evidence of dissection or aneurysm.; Maximum intensity projection images show no evidence of filling defect. There is; compressive atelectasis in the lower lobes bilaterally associated with the; pleural effusions. There are scattered normal sized mediastinal lymph nodes.; Fissural thickening is seen. Some vascular congestion is noted. There is; evidence of a ventral hernia in the upper abdomen seen on the bottom most slices; in the field of view. This appears to be transmitting nondilated bowel loops.; There are clips in the gallbladder fossa.; ; Impression:; ; 1. CHF pattern with bilateral pleural effusions, pulmonary vascular congestion; and cardiomegaly.; ; 2. No CT evidence of pulmonary embolism.; ; 3. Epigastric ventral hernia again noted. Stable mediastinal lymph nodes seen.; ; ; ; ; Signed by; Devin Caruso MD 05/16/2016 04:51 P; Outcome: 16:17 Decision to Hospitalize by Provider. br1 05/17 07:43 Patient left the ED. kcs Signatures: Dispatcher [employer] EDZoie Xiao RN RN Laverne Urena, Precision Machinist Unit deg Cinda Payne Reg Reg gb Yissel Hodges MD MD br1 Yesica Moore,RN RN rs3 Divya Castillo RN RN hs1 Jamari, Jojo, HOSE CEMENTER HOSE CEMENTER luis e Bernabe, Katerin, RN RN sls1 Zhang Mathew,RT RT rs5 Janice Leger,RN RN js13 Ly, Lazaro hgl Lillian,Kristine Ford, Carl, HOSE CEMENTER HOSE CEMENTER jlf Michelle Hernández,RN RN nr1 Jagruti Case Kim,JOEL RN toby2 Pilar SeverinoRN RN ja5 Corrections: (The following items were deleted from the chart) 05/16 14:21 13:15 Home Meds: Combivent 20/100 Inhl 2 puff four times a day; hs1 rs3 Chart Complete MTDD
== END 2016-05-18 15:10 | disposition expired | DRG 871 ==
LOC: M ED 12:59 → M ED INP 16:34 → M ICU 05-17 07:46
PROVIDERS: ADMIT Internal Medicine; ATTEND Internal Medicine Nephrology
PROC: 05H533Z Insertion of Infusion Device into Right Subclavian Vein, Percutaneous Approach (ICD-10-PCS; principal; 2016-05-18)
PROC: 0BH17EZ Insertion of Endotracheal Airway into Trachea, Via Natural or Artificial Opening (ICD-10-PCS; 2016-05-18)
PROC: 04HY33Z Insertion of Infusion Device into Lower Artery, Percutaneous Approach (ICD-10-PCS; 2016-05-18)
DX: A41.9 Sepsis, unspecified organism (principal); R65.21 Severe sepsis with septic shock; J96.01 Acute respiratory failure with hypoxia; J96.02 Acute respiratory failure with hypercapnia; K72.00 Acute and subacute hepatic failure without coma; N39.0 Urinary tract infection, site not specified; N17.9 Acute kidney failure, unspecified; E87.0 Hyperosmolality and hypernatremia; Z66 Do not resuscitate; I50.9 Heart failure, unspecified; E11.9 Type 2 diabetes mellitus without complications; D69.6 Thrombocytopenia, unspecified; D64.9 Anemia, unspecified; E78.5 Hyperlipidemia, unspecified; I10 Essential (primary) hypertension; K21.9 Gastro-esophageal reflux disease without esophagitis; J44.9 Chronic obstructive pulmonary disease, unspecified; Z85.72 Personal history of non-Hodgkin lymphomas; Z86.711 Personal history of pulmonary embolism; Z88.5 Allergy status to narcotic agent; Z88.2 Allergy status to sulfonamides; Z88.8 Allergy status to other drugs, medicaments and biological substances; Z91.040 Latex allergy status; E66.01 Morbid (severe) obesity due to excess calories

== ENCOUNTER → 2016-05-18 | Outpatient (RCR) | payer OTHER ==
[~2016-05-18] MED LIST changes: +COLA100C PO; -COLA100C3 PO; +FURO1TAB15 PO; +INSUH10VL SC; +SPIR50TA2 PO
== END ==
LOC: M PT 05-11 07:31
PROVIDERS: ATTEND Surgery
DX: Z51.89 Encounter for other specified aftercare (principal); I89.0 Lymphedema, not elsewhere classified